=== PATIENT | male | born 1955 | race Caucasian/White ===

== ENCOUNTER 2022-06-27 13:46 | Emergency (ER) | payer MEDICARE, SELFPAY ==
--- NOTE | ~2022-06-27 | XR_ITS ---
EXAMINATION: XR chest 2V 06/27/2022 14:16 INDICATION: Worsening cough PROCEDURE: 2 view chest COMPARISON: No prior studies for comparison. FINDINGS: There is anterior basilar atelectasis. No focal pneumonia, edema, pleural effusion or pneum othorax. The cardiomediastinal silhouette is within normal limits. There are no pleural effusions. There is no pneumothorax suspected. IMPRESSION: 1: Anterior basilar atelectasis, best seen on lateral view. Reviewed, dictated and finalized at location A.
[2022-06-27 13:55] VITALS: BP 167/92; PULSE 93; RESP 20; TEMP 37.3; O2SAT 96
--- NOTE | 2022-06-27 14:37 | ED.URI ---
HPI - URI/Sore Throat General Chief Complaint: Upper Respiratory Infection Stated Complaint: Cough/Headache/Dizziness Source: patient, family, RN notes reviewed and old records reviewed Mode of arrival: ambulatory Limitations: no limitations History of Present Illness HPI Narrative: 66-year-old male who presents to express care accompanied by with complaints of cough, sinus congestion and drainage, sore throat since Saturday 5 days ago. Patient states he has coughed so much his stomach and ribs are sore and he is hoarse and he has a headache today.Patient reports that he has been taking Dayqil and Nyquil for his symptoms with no improvement. Patient reports that he did home COVID test Saturday and also yesterday with negative results. MD elicited complaint: cough, sore throat, rhinorrhea, nasal congestion and sinus pain Onset (ago): week(s) (5) Pain scale (0-10): 5 Description of mucous: clear Treatments prior to arrival: cold medicine Related Data Home Medications Medication Instructions Recorded Confirmed alprazolam 0.5 mg tablet 0.5 mg PO PRN PRN Anxiety 06/27/22 06/27/22 amlodipine 5 mg tablet 5 mg PO DAILY 06/27/22 06/27/22 aspirin 81 mg tablet 81 mg PO DAILY 06/27/22 06/27/22 atorvastatin 40 mg tablet 40 mg PO DAILY 06/27/22 06/27/22 celecoxib 200 mg capsule 200 mg PO DAILY 06/27/22 06/27/22 cyclobenzaprine 10 mg tablet 10 mg PO PRN PRN Muscle Spasm 06/27/22 06/27/22 duloxetine 60 mg capsule,delayed 60 mg PO DAILY 06/27/22 06/27/22 release esomeprazole magnesium 40 mg 40 mg PO DAILY 06/27/22 06/27/22 capsule,delayed release ezetimibe 10 mg tablet 10 mg PO DAILY 06/27/22 06/27/22 gabapentin 300 mg tablet 300 mg PO TID 06/27/22 06/27/22 levothyroxine 88 mcg tablet 88 mcg PO DAILY 06/27/22 06/27/22 losartan 50 mg-hydrochlorothiazide 1 tablet PO DAILY 06/27/22 06/27/22 12.5 mg tablet metoprolol tartrate 100 mg tablet 100 mg PO DAILY 06/27/22 06/27/22 tamsulosin 0.4 mg capsule 0.4 mg PO DAILY 06/27/22 06/27/22 Allergies Allergy/AdvReac Type Severity Reaction Status Date / Time No Known Allergies Allergy Verified 06/27/22 14:08 Review of Systems Review of Systems: CONSTITUTIONAL: Denies fever, chills, or sweats. EYES: Denies visual changes, redness, or discharge. ENT: Positive for rhinorrhea, congestion, sore throat, no ear pain, reports hoarse today RESPIRATORY: Positive for cough denies dyspnea.reports has coughed so hard his ribs and stomach are sore GASTROINTESTINAL: Denies abdominal pain, nausea, vomiting, or diarrhea. GENITOURINARY: Denies dysuria or hematuria. SKIN: Denies rash or itching. MUSCULOSKELETAL: Denies back pain, joint pain, or myalgia. NEUROLOGIC:Reports headache,no numbness, or weakness. PSYCHIATRIC: positive for anxiety or depression. All systems reviewed & are unremarkable except as noted in HPI and below PMFSH Past Medical History Medical History (Updated 07/01/22 @ 14:10 by Cleopatra Watson NP) Anxiety Arthritis BPH (benign prostatic hyperplasia) Elevated cholesterol GERD (gastroesophageal reflux disease) Hypertension Hypothyroid Social History Social History (Updated 07/01/22 @ 14:08 by Cleopatra Watson NP) Smoking status: Never smoker Alcohol intake: current Alcohol use details: rare Substance use type: does not use Gender identity (if verbalized by the patient): Male Comments a time of signature agree with nursing documentation of past medical,surgical, social, and family history.There is no relevant family history pertinent to presenting complaints. Exam Narrative: GENERAL: illl-appearing, well-nourished, and in no acute distress. HEAD: Normocephalic, atraumatic. EYES: PERRLA and EOMI. ENT: Nares red and swollen with clear rhinorrhea or epistaxis. Mucous membranes moist.TM' s normal with dull light reflex, throat red with no lesions or swelling post nasal discharge noted. NECK: Supple. no lymphadenopathy CHEST: Decreased breath sound bases to auscultation
== END 2022-06-27 14:53 | disposition home or self-care (01) ==
PROVIDERS: Emergency Provider Registered Nurse; PCP Internal Medicine
DX: J06.9 Acute upper respiratory infection, unspecified (principal); R05.9 Cough, unspecified; M19.90 Unspecified osteoarthritis, unspecified site; N40.0 Benign prostatic hyperplasia without lower urinary tract symptoms; E78.00 Pure hypercholesterolemia, unspecified; K21.9 Gastro-esophageal reflux disease without esophagitis; I10 Essential (primary) hypertension; E03.9 Hypothyroidism, unspecified; F41.9 Anxiety disorder, unspecified
CPT/HCPCS: 71046; 99213; G0463

== ENCOUNTER 2024-03-06 16:06 | Emergency (ER) | payer MEDICARE, SELFPAY ==
[2024-03-06 16:14] VITALS: BP 156/67; PULSE 63; RESP 16; TEMP 36.4; O2SAT 98
--- NOTE | 2024-03-06 16:33 | ED.SKABFB ---
HPI - Skin/Abscess/Foreign Bdy General Chief complaint: Skin/Abscess/Foreign Body Stated complaint: Rash Time Seen by Provider: 03/06/24 16:33 Source: patient Mode of arrival: ambulatory Limitations: no limitations History of Present Illness HPI narrative: 68-year-old male presents with complaint of itchy rash to groin for approximately 2 weeks. Has been applying prescription triamcinolone ointment without relief. Patient wears depends due to incontinence. Patient also reports strong odor to urine. No other urinary symptoms. All systems reviewed and negative except as noted above. Related Data Home Medications Medication Instructions Recorded Confirmed alprazolam 0.5 mg tablet 0.5 mg PO PRN PRN Anxiety 06/27/22 06/27/22 amlodipine 5 mg tablet 5 mg PO DAILY 06/27/22 06/27/22 aspirin 81 mg tablet 81 mg PO DAILY 06/27/22 06/27/22 atorvastatin 40 mg tablet 40 mg PO DAILY 06/27/22 06/27/22 celecoxib 200 mg capsule 200 mg PO DAILY 06/27/22 06/27/22 cyclobenzaprine 10 mg tablet 10 mg PO PRN PRN Muscle Spasm 06/27/22 06/27/22 duloxetine 60 mg capsule,delayed 60 mg PO DAILY 06/27/22 06/27/22 release esomeprazole magnesium 40 mg 40 mg PO DAILY 06/27/22 06/27/22 capsule,delayed release ezetimibe 10 mg tablet 10 mg PO DAILY 06/27/22 06/27/22 gabapentin 300 mg tablet 300 mg PO TID 06/27/22 06/27/22 levothyroxine 88 mcg tablet 88 mcg PO DAILY 06/27/22 06/27/22 losartan 50 mg-hydrochlorothiazide 1 tablet PO DAILY 06/27/22 06/27/22 12.5 mg tablet metoprolol tartrate 100 mg tablet 100 mg PO DAILY 06/27/22 06/27/22 tamsulosin 0.4 mg capsule 0.4 mg PO DAILY 06/27/22 06/27/22 Allergies Allergy/AdvReac Type Severity Reaction Status Date / Time No Known Allergies Allergy Verified 06/27/22 14:08 Review of Systems Review of Systems: CONSTITUTIONAL: Denies fever, chills, or sweats. EYES: Denies visual changes, redness, or discharge. ENT: Denies rhinorrhea, congestion, sore throat, or otalgia. CARDIOVASCULAR: Denies chest pain, palpitations, or edema. RESPIRATORY: Denies cough or dyspnea. GASTROINTESTINAL: Denies abdominal pain, nausea, vomiting, or diarrhea. GENITOURINARY: Denies dysuria or hematuria. SKIN: Reports itchy rash to right groin. MUSCULOSKELETAL: Denies back pain, joint pain, or myalgia. NEUROLOGIC: Denies headache, numbness, or weakness. PSYCHIATRIC: Denies anxiety or depression. All other systems reviewed are negative, except as documented in HPI. [facility] Past Medical History Medical History (Updated 03/06/24 @ 16:56 by Cierra Monteiro NP) Anxiety Arthritis BPH (benign prostatic hyperplasia) Elevated cholesterol GERD (gastroesophageal reflux disease) Hypertension Hypothyroid Social History Social History (Updated 07/01/22 @ 14:08 by Cleopatra Watson NP) Smoking status: Never smoker Alcohol intake: current Alcohol use details: rare Substance use type: does not use Gender identity (if verbalized by the patient): Male Comments At time of signature, agree with nursing past medical, surgical, social and family history. There is no relevant family history pertinent to the presenting complaint. Exam Narrative: GENERAL: This is a well-nourished, well-developed patient, in no apparent distress. HEAD: normocephalic, atraumatic. EYES: PERRL. Sclera clear/white. Vision is grossly intact. EARS: External ears normal NOSE: External nose normal NECK: Neck supple, non-tender without lymphadenopathy, masses or thyromegaly. CARDIOVASCULAR: Regular rate and rhythm without murmurs, gallops, or rubs. RESPIRATORY: Clear to auscultation. Breath sounds equal bilaterally. No wheezes, rales, or rhonchi. SKIN: warm, Dry, intact with no suspicious lesions , good texture and turgor. erythematous rash to R groin with satellite lesions NEURO: awake, alert, and oriented to person, place and time. There were no obvious focal neurologic abnormalities. EXTREMITIES: No joint tenderness, effusion, or edema no
== END 2024-03-06 17:03 | disposition home or self-care (01) ==
PROVIDERS: Emergency Provider Nurse Practitioner Family; PCP Internal Medicine
DX: B35.6 Tinea cruris (principal); M19.90 Unspecified osteoarthritis, unspecified site; N40.0 Benign prostatic hyperplasia without lower urinary tract symptoms; E78.00 Pure hypercholesterolemia, unspecified; K21.9 Gastro-esophageal reflux disease without esophagitis; I10 Essential (primary) hypertension; E03.9 Hypothyroidism, unspecified; F41.9 Anxiety disorder, unspecified
CPT/HCPCS: 81003; 87086; 87088; 99213; G0463

== ENCOUNTER 2024-07-29 13:51 | Emergency (ER) | payer MEDICARE, SELFPAY ==
[2024-07-29 14:00] VITALS: BP 181/99; PULSE 88; RESP 16; TEMP 36.4; O2SAT 100
--- NOTE | 2024-07-29 14:38 | ED.SKABFB ---
HPI - Skin/Abscess/Foreign Bdy General Chief complaint: Skin/Abscess/Foreign Body Stated complaint: Lower Extremity Rash Time Seen by Provider: 07/29/24 14:29 Source: patient, RN notes reviewed and old records reviewed Mode of arrival: ambulatory Limitations: no limitations History of Present Illness HPI narrative: Patient presents today complaining of a rash to his groin. He was seen in February for same symptoms, diagnosed with tinea cruris, and treated with some oral fluconazole, which he states was very helpful. Patient had a prostatectomy and since that time has to wear Depends due to incontinence. States he has tried some topical cream given to him by his urologist without relief. States he uses it maybe every other day. Related Data Home Medications Medication Instructions Recorded Confirmed amlodipine 5 mg tablet 5 mg PO DAILY 06/27/22 07/29/24 aspirin 81 mg tablet 81 mg PO DAILY 06/27/22 07/29/24 atorvastatin 40 mg tablet 40 mg PO DAILY 06/27/22 07/29/24 celecoxib 200 mg capsule 200 mg PO DAILY 06/27/22 07/29/24 duloxetine 60 mg capsule,delayed 60 mg PO DAILY 06/27/22 07/29/24 release esomeprazole magnesium 40 mg 40 mg PO DAILY 06/27/22 07/29/24 capsule,delayed release ezetimibe 10 mg tablet 10 mg PO DAILY 06/27/22 07/29/24 gabapentin 300 mg tablet 300 mg PO TID 06/27/22 07/29/24 levothyroxine 88 mcg tablet 88 mcg PO DAILY 06/27/22 07/29/24 losartan 50 mg-hydrochlorothiazide 1 tablet PO DAILY 06/27/22 07/29/24 12.5 mg tablet Allergies Allergy/AdvReac Type Severity Reaction Status Date / Time No Known Allergies Allergy Verified 06/27/22 14:08 Review of Systems Review of Systems: CONSTITUTIONAL: Denies body aches, fever, chills, or sweats. EYES: Denies visual changes, redness, or discharge. ENT: Denies rhinorrhea, congestion, sore throat, or otalgia. CARDIOVASCULAR: Denies chest pain, palpitations, or edema. RESPIRATORY: Denies cough or dyspnea. GASTROINTESTINAL: Denies abdominal pain, nausea, vomiting, or diarrhea. GENITOURINARY: Denies dysuria or hematuria. SKIN: + groin rash MUSCULOSKELETAL: Denies back pain, joint pain, or myalgia. NEUROLOGIC: Denies headache, numbness, tingling, or weakness. PSYCH: Denies depression or anxiety. [facility] Past Medical History Medical History (Updated 07/29/24 @ 14:44 by Carla Haywood, [employer]ORE SALES [employer]SULTANT, ) Anxiety Arthritis BPH (benign prostatic hyperplasia) Elevated cholesterol GERD (gastroesophageal reflux disease) Hypertension Hypothyroid Surgical History Surgical History (Updated 07/29/24 @ 14:41 by Carla Haywood, [facility], ) H/O prostatectomy Social History Social History Smoking status: Never smoker Alcohol intake: current Alcohol use details: rare Substance use type: does not use Gender identity (if verbalized by the patient): Male Exam Narrative: GENERAL: Well-appearing, well-nourished, and in no acute distress. HEAD: Normocephalic, atraumatic. EYES: EOMI. No redness or drainage. Conjunctivae normal. ENT: Mucous membranes pink and moist. NECK: Normal AROM. CHEST: No respiratory distress. EXTREMITIES: Normal range of motion. No edema. SKIN: Warm, dry. Capillary refill normal. Normal skin turgor. Large area to the right groin that is erythematous with some central clearing in flaking at the edges. NEURO: No focal deficits. Alert and oriented x3. Gait steady. PSYCH: Normal affect. No signs of depression or anxiety. Course Course Level of Care: Express Care Visit Vital Signs Vital signs: Vital Signs Temperature 97.6 F 07/29/24 14:00 Pulse Rate 88 07/29/24 14:00 Respiratory Rate 16 07/29/24 14:00 Blood Pressure 181/99 H 07/29/24 14:00 Pulse Oximetry 100 07/29/24 14:00 Oxygen Delivery Room Air 07/29/24 14:00 Temperature 97.6 F 07/29/24 14:00 Pulse Rate 88 07/29/24 14:00 Respiratory Rate 16 07/29/24 14:00 Blood Pressure
== END 2024-07-29 14:50 | disposition home or self-care (01) ==
PROVIDERS: Emergency Provider Nurse Practitioner; PCP Internal Medicine
DX: B35.6 Tinea cruris (principal); N40.0 Benign prostatic hyperplasia without lower urinary tract symptoms; E78.00 Pure hypercholesterolemia, unspecified; I10 Essential (primary) hypertension; E03.9 Hypothyroidism, unspecified; M19.90 Unspecified osteoarthritis, unspecified site; F41.9 Anxiety disorder, unspecified; Z79.82 Long term (current) use of aspirin
CPT/HCPCS: 99213; G0463

== ENCOUNTER 2024-10-30 16:43 | Emergency (ER) | payer MEDICARE, SELFPAY ==
--- OUTSIDE RECORDS SUMMARY | 2024-10-30 16:46 | XMS_ITS | Encounter Summary ---
Author Organization [facility] Address [address] [place] [address] Care Team Providers Care Turbine Engineer Name Role Phone Mohinder Hadley MD Primary Care Provider [phone] Encounter Details Date Type Department Care Team (Late Contact Info) Description 06/26/2005 Outpatient [facility] [address] 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 Gender Identity Not on file Sexual Orientation Not on file documented as of this encounter Plan of Treatment Upcoming Encounters Date Type Department Care Team (Late Contact Info) Description 11/09/2024 1:20 PM REAL ESTATE ADMINISTRATIVE ASSISTANT [facility] Care [address] [place] [phone] Mohinder Hadley MD [address] [place] [address] [address] [place] [address] 11/10/2024 11:00 AM REAL ESTATE ADMINISTRATIVE ASSISTANT Office Visit [facility] at the [facility] Medicine [address] [facility] [facility] [address] [place] [phone] Chirag Damon MD [address] [employer] [address] [place], [place] [id number] 01/04/2025 12:00 PM CDT Office Visit [facility] Urology at the [facility] [address] [place] [address] Tonia Melton PA [address] [facility] [address] [place] [address] documented as of this encounter Visit Diagnoses Not on filedocumented in this encounter Care Teams Turbine Engineer Relationship Specialty Start Date End Date Mohinder Hadley MD [address] [place] [address] [address] [place] [phone] PCP - General 06/03/07 documented as of this encounter
--- OUTSIDE RECORDS SUMMARY | 2024-10-30 16:46 | XMS_ITS | Encounter Summary ---
Author Organization [facility] Address [address] [place] [address] Care Team Providers Care Senior Asset Manager Name Role Phone Mohinder Hadley MD Primary Care Provider [phone] Encounter Details Date Type Department Care Team ([facility] Contact Info) Description 05/28/2005 Outpatient Historical [facility] Internal Medicine [address] [place] [address] [address] Mohinder Hadley MD [address] [place] [address] Social History Tobacco Use Types Packs/Day Years Used Date Smoking Tobacco: Never Assessed Sex and Gender Information Value Date Recorded Sex Assigned at Not on file Legal Sex Male 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 CONTROLLER CENTER Gender Identity Not on file Sexual Orientation Not on file documented as of this encounter Last Filed Vital Signs Vital Sign Reading Time Taken Comments Blood Pressure 152/90 05/28/2005 1:30 PM CDT Pulse - - Temperature - - Respiratory Rate - - Oxygen Saturation - - Inhaled Oxygen Concentration - - Weight 89.8 kg (198 lb) 05/28/2005 1:30 PM CDT Height - - Body Mass Index - - documented in this encounter Plan of Treatment Upcoming Encounters Date Type Department Care Team ([facility] Contact Info) Description 11/09/2024 1:20 PM CHIEF CONTROLLER CENTER Office Visit [facility] Primary Care [address] [place] [address] Mohinder Hadley MD [address] [place] [address] [address] [place] [address] 11/10/2024 11:00 AM CHIEF CONTROLLER CENTER Office Visit [facility] Urology at the [facility] Medicine [address] [place] [phone] Chirag [place]on MD [address] [facility] [address] [place], [place] [phone] 01/04/2025 12:00 PM CDT Office Visit [facility] Urology at the [facility] [address] [place] [address] Tonia Melton PA [address] [facility] [address] [place], [place] [phone] documented as of this encounter Visit Diagnoses Not on filedocumented in this encounter Care Teams Senior Asset Manager Relationship Specialty Start Date End Date Mohinder Hadley MD [address] [place] [address] PCP - General 06/03/07 documented as of this encounter
--- OUTSIDE RECORDS SUMMARY | 2024-10-30 16:46 | XMS_ITS | Encounter Summary ---
Author Organization [facility] Address [address] [place] [address] Care Team Providers Care Utilization Coordinator Name Role Phone Mohinder Hadley MD Primary Care Provider [phone] Encounter Details Date Type Department Care Team ([facility] Contact Info) Description 11/21/2004 Outpatient Historical [facility] Internal Medicine [address] [address] Mohinder Hadley MD [address] [place] [address] [address] [place] [address] Social History Tobacco Use Types Packs/Day Years Used Date Smoking Tobacco: Never Assessed Sex and Gender Information Value Date Recorded Sex Assigned at Not on file Legal Sex Male 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 COATING FINISHER Gender Identity Not on file Sexual Orientation Not on file documented as of this encounter Last Filed Vital Signs Vital Sign Reading Time Taken Comments Blood Pressure 170/110 11/21/2004 1:30 PM ARCHITECTURAL COATING FINISHER Pulse - - Temperature - - Respiratory Rate - - Oxygen Saturation - - Inhaled Oxygen Concentration - - Weight 90.7 kg (200 lb) 11/21/2004 1:30 PM ARCHITECTURAL COATING FINISHER Height - - Body Mass Index - - documented in this encounter Plan of Treatment Upcoming Encounters Date Type Department Care Team ([facility] Contact Info) Description 11/09/2024 1:20 PM ARCHITECTURAL COATING FINISHER Office Visit [facility] Primary Care [address] [place] [address] Mohinder Hadley MD [address] [place] [address] [address] [place] [address] 11/10/2024 11:00 AM ARCHITECTURAL COATING FINISHER Office Visit [facility] Urology at the [facility] Medicine [address] [place] [phone] Chirag [place]on MD [address] [facility] [address] [place], [place] [phone] 01/04/2025 12:00 PM CDT Office Visit [facility] Urology at the [facility] [address] [place] [phone] Tonia Melton PA [address] [id number] documented as of this encounter Visit Diagnoses Not on filedocumented in this encounter Care Teams Utilization Coordinator Relationship Specialty Start Date End Date Mohinder Hadley MD [address] [place] [address] PCP - General 06/03/07 documented as of this encounter
--- OUTSIDE RECORDS SUMMARY | 2024-10-30 16:46 | XMS_ITS | Encounter Summary ---
Author Organization [facility] Address [address] [place] [address] Care Team Providers Care Landscape Manager Name Role Phone Mohinder Hadley MD Primary Care Provider [phone] Encounter Details Date Type Department Care Team (Late Contact Info) Description 05/07/2005 Outpatient [facility] [address] [place] [address] Kanwal Fish MD [address] [place] [phone] Social History Tobacco Use Types Packs/Day Years Used Date Smoking Tobacco: Never Assessed Sex and Gender Information Value Date Recorded Sex Assigned at Not on file Legal Sex Male 5:02 AM INSTRUCTOR WARPER Gender Identity Not on file Sexual Orientation Not on file documented as of this encounter Plan of Treatment Upcoming Encounters Date Type Department Care Team (Late Contact Info) Description 11/09/2024 1:20 PM INSTRUCTOR WARPER Office Visit [facility] Primary Care [address] [place] [phone] Mohinder Hadley MD [address] [place] [address] [address] [place] [address] 11/10/2024 11:00 AM INSTRUCTOR WARPER Office Visit [facility] Urology at the [facility] Medicine [address] [facility] [address] [place] [phone] Chirag [place] MD [address] [employer] [address] [place], [place] [phone] 01/04/2025 12:00 PM CDT Office Visit [facility] Urology at the [facility] [address] [place] [address] Tonia Melton PA [address] [facility] [address] [place] [address] documented as of this encounter Visit Diagnoses Not on filedocumented in this encounter Care Teams Landscape Manager Relationship Specialty Start Date End Date Mohinder Hadley MD [address] [place] [address] [address] [place] [phone] PCP - General 06/03/07 documented as of this encounter
--- OUTSIDE RECORDS SUMMARY | 2024-10-30 16:46 | XMS_ITS | Encounter Summary ---
Author Organization [facility] Address [address] [place] [address] Care Team Providers Care Sanitation Worker Cleaning Equipment Name Role Phone Mohinder Hadley MD Primary Care Provider [phone] Encounter Details Date Type Department Care Team (Late Contact Info) Description 02/26/2005 Outpatient [facility] [address] [place] [address] Kanwal Fish MD [address] [place] [phone] Social History Tobacco Use Types Packs/Day Years Used Date Smoking Tobacco: Never Assessed Sex and Gender Information Value Date Recorded Sex Assigned at Not on file Legal Sex Male 5:02 AM DIVISION TOLL WIRE CHIEF Gender Identity Not on file Sexual Orientation Not on file documented as of this encounter Plan of Treatment Upcoming Encounters Date Type Department Care Team (Late Contact Info) Description 11/09/2024 1:20 PM DIVISION TOLL WIRE CHIEF Office Visit [facility] Primary Care [address] [place] [phone] Mohinder Hadley MD [address] [place] [address] [address] [place] [address] 11/10/2024 11:00 AM DIVISION TOLL WIRE CHIEF Office Visit [facility] Urology at the [facility] Medicine [address] [facility] [address] [place] [phone] Chirag [place] MD [address] [employer] [address] [place], [place] [phone] 01/04/2025 12:00 PM CDT Office Visit [facility] Urology at the [facility] [address] [place] [address] Tonia Melton PA [address] [facility] [address] [place] [address] documented as of this encounter Visit Diagnoses Not on filedocumented in this encounter Care Teams Sanitation Worker Cleaning Equipment Relationship Specialty Start Date End Date Mohinder Hadley MD [address] [place] [address] [address] [place] [phone] PCP - General 06/03/07 documented as of this encounter
--- OUTSIDE RECORDS SUMMARY | 2024-10-30 16:47 | XMS_ITS | Encounter Summary ---
Author Organization [facility] Address [address] [place] [address] Care Team Providers Care Worksite Wellness Practitioner Name Role Phone Mohinder Hadley MD Primary Care Provider [phone] Encounter Details Date Type Department Care Team (Late st Contact Info) Description 10/13/[address] [facility] Internal Medicine [address] [address] Mohinder Hadley MD [address] [place] [address] Social History Tobacco Use Types Packs/Day Years Used Date Smoking Tobacco: Never Assessed Sex and Gender Information Value Date Recorded Sex Assigned at Not on file Legal Sex Male 5:02 AM FOUNDRY METALLURGIST Gender Identity Not on file Sexual Orientation Not on file documented as of this encounter Progress Notes * Mohinder Hadley MD - 02/18/2008 5:27 PM CDT TIME:10:23 am PATIENT`S HOME PHONE: PATIENT`S WORK PHONE: PATIENT`S INSURANCE: [facility] WHO TOOK THE CALL: Alicia Buck B GENERAL INFORMATION ALTERNATIVE PHONE NUMBER: [phone] WHO CALLED: Patient called. Patient reports no known allergies. PHARMACY NUMBER: [phone] PROBLEMS: pt experiencing hot/ cold flashes. feels he may have a sinus infection CONGESTION: Patient complains of sinus congestion, complains of nasal congestion. The symptoms began approximately 1 day ago. NAUSEA: Patient complains of nausea. The symptoms began approximately 1 day ago. SECTION 1: REQUESTED ACTION hakeem 10/13/07 at 10:25 am: MEDICATION REQUEST: Patient wants medication or an appointment. can come in for appt if necessary DOCTOR`S RESPONSE: chelseybibi 10/13/07 at 10:36 am MEDICATIONS: Call in to Pharmacy LEVAQUIN ORAL TABLET 500 MG, 1 Every Day, 10 Dispensed, status: CONTINUED, 10/13/2007. see if not improving--if pt feeling very sick put in sched for today FINAL ACTION: sabikb 10/13/07 at 11:51 am did not call in meds because pt will be coming in this afternoon. Spoke with patient 10/13/07 at 11:51 am. today 1:45pm * Mohinder Hadley MD - 02/18/2008 5:22 PM CDT WEIGHT: 190lbs BLOOD PRESSURE: 140/100 Right Arm Sitting TEMPERATURE: 36.72??c Oral NURSE NAME: Yazmin Sapp R TOBACCO USE Patient does not currently use tobacco. CHIEF COMPLAINT Patient complains of sinus congestion, cough, dizziness. HISTORY: HISTORY: 272.4-HYPERLIPIDEMIA The patient is tolerating the medications. 311-DEPRESSION No complications noted from the medication presently being used. 401.9-HYPERTENSION, UNSPECIFIED The patient is tolerating the medication. 461.9-SINUSITIS UNSPECIFIED with bronchitis, sx wheeze, sinus drainage, x 2 weeks 715.90-OSTEOARTHROSIS UNSPECIFIED The arthritis has worsened.severe daily chronic pain , back and legs ROS: ENDOCRINE: No heat or cold intolerance, no excessive thirst. CARDIAC: No chest pain, palpitations, orthopnea, dyspnea on exertion, or paroxysmal nocturnal dyspnea. RESPIRATORY: No dyspnea, cough, hemoptysis or wheezing. : No dysuria or hematuria. GI: No abdominal pain, nausea, vomiting, diarrhea, constipation, melena, or hematochezia. PAST MEDICAL HISTORY: reviewed SOCIAL HISTORY: TOBACCO USE: Has no significant smoking history. OCCUPATION: . working [employer] ALCOHOL: Does not give any significant history of alcohol usage. PHYSICAL EXAMINATION: CONSTITUTIONAL: GENERAL APPEARANCE: Healthy appearing patient in no distress. EARS, NOSE, MOUTH AND THROAT: EARS: EFFUSION PRESENT BILATERALLY, TYMPANIC MEMBRANES INFLAMED BILATERALLY. ORAL: OROPHARYNX ERYTHEMATOUS. NECK/THYROID: Trachea midline. No thyroid enlargement, tenderness, or mass. No supraclavicular or cervical adenopathy. RESPIRATORY: Clear to auscultation and percussion. Normal respiratory effort. CARDIOVASCULAR: CARDIAC: Regular rhythm. No murmurs, rubs, or gallops. ARTERIAL: No aortic bruits. EDEMA/VARICOSITIES OF EXTREMITIES: No edema or varicosities. GASTROINTESTINAL: ABDOMEN: Soft, non-tender, without masses. Bowel sounds active. LIVER/SPLEEN/KIDNEY: No hepatosplenomegaly, tenderness or nodularity. Kidneys not palpable. MUSCULOSKELETAL EXAM: ls tender ASSESSMENT/PLAN: 272.4-HYPERLIPIDEMIA cont med, recheck lab 311-DEPRESSION cont med, discussed 401.9-HYPERTENSION, UNSPECIFIED cont med 461.9-SINUSITIS UNSPECIFIED rx MEDICATIONS: MEDROL (KERLINE) ORAL TABLET 4 MG, DIRECTED, 1 Dispensed, status: CONTINUED, 10/13/2007. LEVAQUIN ORAL TABLET 500 MG, 1 Every Day, 14 Dispensed, status: CONTINUED, 10/13/2007. ASTELIN NASAL SOLUTION 137 MCG/SPRAY, 2 Two Times A Day, 4 Fills, 30 Duration/Days Supply, status: NEW PRESCRIPTION, 10/13/2007. ADDISON ORAL TABLET 180 MG, 1 Every Day, 30 Dispensed, 3 Fills, status: NEW PRESCRIPTION, 10/13/2007. 715.90-OSTEOARTHROSIS UNSPECIFIED add med again, offered ns referral pt declines, cont other med MEDICATIONS: CELEBREX ORAL CAPSULE CONVENTIONAL 200 MG, 1 Every Day, 30 Dispensed, 3 Fills, status: NEW PRESCRIPTION, 10/13/2007. GABAPENTIN ORAL TABLET 300 MG, 1 Two Times A Day, 60 Dispensed, 4 Fills, status: CONTINUED, 08/21/2007. SPECIALTY REFERRAL: GASTROENTEROLOGY Dr. Jovany Miranda ph: [phone] fax: [phone].colonoscopy Patient Education: Risks, benefits, and possible side effects of medication(s) were reviewed with the patient. The patient was allowed to ask questions to stated satisfaction. RETURN VISIT : Patient instructed to return in 3 months.resched [address] apt Electronically Signed by: Mohinder Hadley MD on Saturday, October 13, 2007 * Mohinder Hadley MD - 02/18/2008 5:19 PM CDT TIME:03:36 pm PATIENT`S HOME PHONE: PATIENT`S WORK PHONE: PATIENT`S INSURANCE: [facility] WHO TOOK THE CALL: Nanci Barnett C GENERAL INFORMATION WHO CALLED: Pharmacy called. [phone] SECTION 1: REQUESTED ACTION trey 10/13/07 at 03:36 pm: MEDICATION REQUEST: Pt is taking cymbalta you had given a script of Levaquin for 14 days they say it may increase the cymbalta Pt states he is not taking it everyday. Is it okay to fill? Patient requests a change in current medication. DOCTOR`S RESPONSE: adrianna 10/13/07 at 03:42 pm ok fill FINAL ACTION: trey 10/13/07 at 03:52 pm Called pharmacy at 10/13/07 at 03:52 pm. Electronically Signed by: Nanci Barnett on Saturday, October 13, 2007 documented in this encounter Plan of Treatment Upcoming Encounters Date Type Department Care Team (Late st Contact Info) Description 11/09/2024 1:20 PM FOUNDRY METALLURGIST Office Visit [facility] Primary Care [address] Mohinder Hadley MD [address] [place] [address] 11/10/2024 11:00 AM FOUNDRY METALLURGIST Office Visit [facility] Urology at the [facility] Medicine [address] [place] [phone] Chirag Damon MD [address] [phone] 01/04/2025 12:00 PM CDT Office Visit [facility] Urology at the [facility] Medicine [address] [place] [phone] Tonia Melton PA [address] [address] documented as of this encounter Visit Diagnoses Not on filedocumented in this encounter Care Teams Worksite Wellness Practitioner Relationship Specialty Start Date End Date Mohinder Hadley MD [address] [place] [phone] PCP - General 06/03/07 documented as of this encounter
--- OUTSIDE RECORDS SUMMARY | 2024-10-30 16:47 | XMS_ITS | Encounter Summary ---
Author Organization [facility] Address [address] [place] [address] Care Team Providers Care Network Contractor Name Role Phone Mohinder Hadley MD Primary Care Provider [phone] Encounter Details Date Type Department Care Team (Late Contact Info) Description 04/22/2006 Outpatient Historical [facility] Internal Medicine [address] [address] Mohinder Hadley MD [address] [place] [address] [address] [phone] Social History Tobacco Use Types Packs/Day Years Used Date Smoking Tobacco: Never Assessed Sex and Gender Information Value Date Recorded Sex Assigned at Not on file Legal Sex Male 5:02 AM OFFICE SPEC Gender Identity Not on file Sexual Orientation Not on file documented as of this encounter Plan of Treatment Upcoming Encounters Date Type Department Care Team (Late Contact Info) Description 11/09/2024 1:20 PM OFFICE SPEC Office Visit [facility] Primary Care [facility] [address] [place] [address] [address] [place] [phone] Mohinder Hadley MD [address] [place] [address] [address] [place] [phone] 11/10/2024 11:00 AM OFFICE SPEC Office Visit [facility] Urology at the [facility] [address] [place] [address] Chirag Damon MD [address] [facility] [address] [place] [address] 01/04/2025 12:00 PM CDT Office Visit [facility] Urology at the [facility] Medicine [address] [place] [address] Tonia Melton PA [address] [facility] [address] [place] [address] documented as of this encounter Visit Diagnoses Not on filedocumented in this encounter Care Teams Network Contractor Relationship Specialty Start Date End Date Mohinder Hadley MD [address] [place] [phone] PCP - General 06/03/07 documented as of this encounter
--- OUTSIDE RECORDS SUMMARY | 2024-10-30 16:47 | XMS_ITS | Encounter Summary ---
Author Organization [facility] Address [address] [place] [address] Care Team Providers Care Marine Railway Operator Name Role Phone Mohinder Hadley MD Primary Care Provider [phone] Encounter Details Date Type Department Care Team ([facility] Contact Info) Description 06/27/2004 Outpatient Historical [facility] Internal Medicine [address] [address] Mohinder Hadley MD [address] [place] [address] Social History Tobacco Use Types Packs/Day Years Used Date Smoking Tobacco: Never Assessed Sex and Gender Information Value Date Recorded Sex Assigned at Not on file Legal Sex Male 5:02 AM PUBLIC HEALTH SANITARIAN Gender Identity Not on file Sexual Orientation Not on file documented as of this encounter Last Filed Vital Signs Vital Sign Reading Time Taken Comments Blood Pressure 160/90 06/27/2004 11:15 AM CDT Pulse - - Temperature - - Respiratory Rate - - Oxygen Saturation - - Inhaled Oxygen Concentration - - Weight 91.6 kg (202 lb) 06/27/2004 11:15 AM CDT Height - - Body Mass Index - - documented in this encounter Plan of Treatment Upcoming Encounters Date Type Department Care Team ([facility] Contact Info) Description 11/09/2024 1:20 PM PUBLIC HEALTH SANITARIAN Office Visit [facility] Primary Care [address] [place] [address] Mohinder Hadley MD [address] [place] [address] [address] [place] [address] 11/10/2024 11:00 AM PUBLIC HEALTH SANITARIAN Office Visit [facility] Urology at the [facility] Medicine [address] [place] [phone] Chirag Damon MD [address] [facility] [address] [place], [place] [phone] 01/04/2025 12:00 PM CDT Office Visit [facility] Urology at the [facility] [address] [place] [address] Tonia Melton PA [address] [facility] [address] [place], [place] [phone] documented as of this encounter Visit Diagnoses Not on filedocumented in this encounter Care Teams Marine Railway Operator Relationship Specialty Start Date End Date Mohinder Hadley MD [address] [place] [phone] PCP - General 06/03/07 documented as of this encounter
--- OUTSIDE RECORDS SUMMARY | 2024-10-30 16:47 | XMS_ITS | Encounter Summary ---
Author Organization [facility] Address [address] [place] [address] Care Team Providers Care Dope House Operator Helper Name Role Phone Charlotte Felipe MD Primary Care Provider [phone] Encounter Details Date Type Department Care Team (Late st Contact Info) Description 01/01/2007 Orders Only [facility] Internal Medicine [address] [address] Charlotte Felipe MD [address] [place] [phone] Social History Tobacco Use Types Packs/Day Years Used Date Smoking Tobacco: Never Assessed Sex and Gender Information Value Date Recorded Sex Assigned at Not on file Legal Sex Male 5:02 AM DOUBLE END SEWER Gender Identity Not on file Sexual Orientation Not on file documented as of this encounter Progress Notes * Charlotte Felipe MD - 02/27/2008 1:33 PM CDT TIME:02:42 pm PATIENT`S HOME PHONE: PATIENT`S WORK PHONE: PATIENT`S INSURANCE: [facility] WHO TOOK THE CALL: Cherise Gao C PROBLEMS: Would you please tell me why patient needs pain management referral? Thank You SECTION 1: back pain radiculopathy DOCTOR`S RESPONSE: adrianna 01/01/07 at 03:06 pm FINAL ACTION: mary 01/01/07 at 05:19 pm COMPLETED SENT TO [facility]. Electronically Signed by: Cherise Gao on Monday, January 01, 2007 * Charlotte Felipe MD - 02/27/2008 1:33 PM CDT WEIGHT: 195lbs BLOOD PRESSURE: 140/70 Right Arm Sitting TEMPERATURE: 36.39??c Oral NURSE NAME: Yazmin Sapp R CHIEF COMPLAINT Patient here for follow up hyperlipidemia, hypertension. c/o numbness in feet. HISTORY: numb in toe known radiculopathy HISTORY: 272.4-HYPERLIPIDEMIA The patient is tolerating the medications. The patient's most recent LDL was not at goal. 311-DEPRESSION The depression is unchanged. 401.9-HYPERTENSION, UNSPECIFIED The patient denies chest pain, shortness of breath, dyspnea on exertion, pedal edema, or headache. 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 CARDIAC: No chest pain, palpitations, orthopnea, dyspnea on exertion, or paroxysmal nocturnal dyspnea. : See HISTORY OF PRESENT ILLNESS. GI: No abdominal pain, nausea, vomiting, diarrhea, constipation, melena, or hematochezia. PAST MEDICAL HISTORY: reviewed SOCIAL HISTORY: TOBACCO USE: Has no significant smoking history. OCCUPATION: . working [employer] ALCOHOL: Does not give any significant history of alcohol usage. PHYSICAL EXAMINATION: CONSTITUTIONAL: GENERAL APPEARANCE: Healthy appearing patient in no distress. EARS, NOSE, MOUTH AND THROAT: EARS: Tympanic membranes shiny without retraction. Canals unremarkable. Hearing grossly normal. ORAL: Inspection of gums, lips, palate, and teeth normal. No scars, lesions, or masses. Oral mucosaunremarkable with non-inflamed posterior pharynx. NECK/THYROID: Trachea midline. No thyroid enlargement, tenderness, or mass. No supraclavicular or cervical adenopathy. RESPIRATORY: Clear to auscultation and percussion. Normal respiratory effort. CARDIOVASCULAR: CARDIAC: Regular rhythm. No murmurs, rubs, or gallops. ARTERIAL: No aortic bruits. EDEMA/VARICOSITIES OF EXTREMITIES: No edema or varicosities. GASTROINTESTINAL: ABDOMEN: Soft, non-tender, without masses. Bowel sounds active. LIVER/SPLEEN/KIDNEY: No hepatosplenomegaly, tenderness or nodularity. Kidneys not palpable. RECTAL: Rectal exam reveals no masses or hemorrhoids, sphincter tone is normal. STOOL/HEMOCCULT: Stool is normal. Stool is hemoccult negative. GENITOURINARY: PROSTATE: 1+ ENLARGED, smooth. NEUROLOGIC: numb left big toe DEEP TENDON REFLEXES: Deep tendon reflexes 2+/4 and symmetrical. 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 LAB ORDERS: now Order number: [id number] Test Ordered: URINALYSIS WITH REFLEX CULTURE 2221 Order number: [id number] Test Ordered: PSA, TOTAL 1002 Order number: [id number] Test Ordered: HEMOCCULT SINGLE [id number] neg-done in office 715.90-OSTEOARTHROSIS UNSPECIFIED reviewed old studies with pt, refer pain mgt MEDICATIONS: DARVOCET-N 100 ORAL TABLET 100-650 MG, 1 Every Six Hours, As Needed, 90 Dispensed, 1 Fills, status:CONTINUED, 01/01/2007. SPECIALTY REFERRAL: PAIN MANAGEMENT Dr. Jake Christianson ph: [phone]. RETURN VISIT : Patient instructed to return in 3 months. Electronically Signed by: Charlotte Felipe MD on Monday, January 01, 2007 * Charlotte Felipe MD - 02/27/2008 1:27 PM CDT SPECIALIST REFERRAL REQUEST DATE: JAN 01, 2007 Note created by: Cherise Gao C 04:53 p Patient Name : LB MCCORMICK Address: [address] [place] [address] D.O.B: 1955 SSN: [id number] Parent/Guardian if applicable: Patient Insurance: [facility] Policy#: [id number] Group #: Best To Call : HOME. Best Time to Call : ANYTIME. May We Leave Message At That Number : YES, LEAVE MESSAGE. Referring to: PAIN MANAGEMENT Dr. Jake Christianson PH: Reason for referral: Back pain radiculopathy PATIENT DIAGNOSIS: . ORDERING PHYSICIAN : CHARLOTTE FELIPE MD PRIORITY OF REFERRAL: AT PATIENT'S CONVENIENCE. OFFICE UTILITY SALES REPRESENTATIVE & PHONE: Cherise Gao C FOR SCHEDULING USE ONLY: FIRST ATTEMPT Date:JAN 02, 2007 Torie Ho L 08:29 a First Attempt :. Spoke with Patient.and called Dr Christianson's office Hyun said that they could not schedule the appt until the had a copy of the referral and had a phone interview with the pt. She said that then they would schedule the pt appt. I faxed over the referral and informed the pt that hyun would be calling. I asked that We be called back and informed of his appt date and time SECOND ATTEMPT: Date:JAN 27, 2007 Madonna Crum J 10:08 a called [facility] center and got appt date APPOINTMENT DATE : 01/28/2007 Referral number: none needed documented in this encounter Plan of Treatment Upcoming Encounters Date Type Department Care Team (Late st Contact Info) Description 11/09/2024 1:20 PM DOUBLE END SEWER Office Visit [facility] Primary Care [id number] [place] [address] Charlotte Felipe MD [address] [place] [phone] 11/10/2024 11:00 AM DOUBLE END SEWER Office Visit [facility] Urology at the [facility] Medicine [address] [place] [phone] Chirag Damon MD [address] [phone] 01/04/2025 12:00 PM CDT Office Visit [facility] Urology at the [facility] Medicine [address] [place] [phone] Tonia Melton PA [address] [phone] documented as of this encounter Visit Diagnoses Not on filedocumented in this encounter Care Teams Dope House Operator Helper Relationship Specialty Start Date End Date Charlotte Felipe MD [address] [place] [phone] PCP - General 06/03/07 documented as of this encounter
--- OUTSIDE RECORDS SUMMARY | 2024-10-30 16:47 | XMS_ITS | Encounter Summary ---
Author Organization [facility] Address [address] [place] [address] Care Team Providers Care Manager In Training Name Role Phone Unavailable Primary Care Provider Unavailabl e Encounter Details Date Type Department Care Team (Late st Contact Info) Description 04/17/2020 Lab Requisition [facility] [address] [place] [address] Graciela Valdez MD [address] [place] [address] Social History Tobacco Use Types Packs/Day Years Used Date Smoking Tobacco: Never Assessed Sex and Gender Information Value Date Recorded Sex Assigned at Not on file Gender Identity Not on file Sexual Orientation Not on file documented as of this encounter Plan of Treatment Not on file documented as of this encounter Procedures Procedure Name Priority Date/Time Associated Diagnosis Comments SARS-COV-2 (COVID-19) IN HOUSE Routine 04/16/2020 2:00 PM CDT documented in this encounter Results * SARS-COV-2 (COVID-19) IN HOUSE (04/16/2020 2:00 PM CDT) COVID-19 PCR Not detected Not detected, Invalid 04/17/2020 8:57 PM CDT [facility] MICROBIOLOGY Microbiology SPECIMEN FROM NASOPHARYNGEAL STRUCTURE / Unknown Collection / Unknown 04/16/2020 2:00 PM CDT 04/17/2020 4:32 PM CDT Narrative [facility]CRO[facility]OLOG[facility] - 04/17/2020 8:57 PM CDT This nucleic acid amplification assay performance was validated by [facility] Microbiology Laboratory. This test has been authorized by the Food and Drug administration (FDA)under an Emergency??Use Authorization (EUA). This test has been validated in accordance with the FDA's guidance document Policy for Diagnostic Testing in Laboratories Certified to perform High Complexity Testing under CLIA prior to Emergency Use Authorization for Coronavirus Disease-2019 during the Public Health Emergency issued on December 05, 2019. FDA independent review of this validation is pending. This test is only authorized for the duration of time the declaration that circumstances exist justifying the authorization of emergency use of in vitro diagnostic tests for detection of SARS-CoV-2 virus and/or diagnosis of COVID-19 infection under section 564(b)(1) of the Act, 21 U.S.C 360bbb-3 (b)(1), unless the authorization is terminated or revoked sooner. Graciela Valdez MD LAB - MICROBIOLOGY ORDERABLES [facility] MICROBIOLOGY [address] [place] [address], [facility] [phone] documented in this encounter Visit Diagnoses Not on filedocumented in this encounter Additional Health Concerns Infection Onset Date Last Indicated Resolved Time COVID-19 Under Investigation 04/16/2020 04/16/2020 04/17/2020 8:57 PM CDT documented as of this encounter
--- OUTSIDE RECORDS SUMMARY | 2024-10-30 16:47 | XMS_ITS | Encounter Summary ---
Author Organization [facility] Address [address] [place] [address] Care Team Providers Care Supervisor Receiving And Processing Name Role Phone Mohinder Hadley MD Primary Care Provider [phone] Encounter Details Date Type Department Care Team (Late st Contact Info) Description 11/06/2007 Orders Only [facility] Internal Medicine [address] [address] Mohinder Hadley MD [address] [place] [address] Social History Tobacco Use Types Packs/Day Years Used Date Smoking Tobacco: Never Assessed Sex and Gender Information Value Date Recorded Sex Assigned at Not on file Legal Sex Male 5:02 AM INDUSTRIAL TRAINER Gender Identity Not on file Sexual Orientation Not on file documented as of this encounter Progress Notes * Mohinder Hadley MD - 02/18/2008 9:32 PM CDT TIME:12:26 pm PATIENT`S HOME PHONE: PATIENT`S WORK PHONE: PATIENT`S INSURANCE: [facility] WHO TOOK THE CALL: Toya Teran L GENERAL INFORMATION WHO CALLED: Pharmacy called. PHARMACY NUMBER: [phone] SECTION 1: REQUESTED ACTION licasl 11/06/07 at 12:27 pm: MEDICATION REQUEST: MEDICATION REQUEST: Patient requests a refill. Darvocet N-100 #90 Lf 08/20/07 & gen Flexeril 10mg. #30 LF 08/20/07 DOCTOR`S RESPONSE: adrianna 11/06/07 at 01:04 pm MEDICATIONS: FLEXERIL ORAL TABLET 10 MG, 1 Every Day At Bedtime, 30 Dispensed, 1 Fills, status: CONTINUED, 11/06/2007. DARVOCET-N 100 ORAL TABLET 100-650 MG, 1 Every Six Hours, As Needed, 90 Dispensed, 1 Fills, status:CONTINUED, 11/06/2007. FINAL ACTION: trey 11/06/07 at 01:54 pm Electronically Signed by: Nanci Barnett on October documented in this encounter Plan of Treatment Upcoming Encounters Date Type Department Care Team (Late st Contact Info) Description 11/09/2024 1:20 PM INDUSTRIAL TRAINER Office Visit [facility] [place] [address] Mohinder Hadley MD [address] [place] [address] 11/10/2024 11:00 AM INDUSTRIAL TRAINER Office Visit [facility] Urology at the [facility] [address] [place] [address] Chirag Damon MD [address] [address] 01/04/2025 12:00 PM CDT Office Visit [facility] Urology at the [facility] [address] [place] [address] Tonia Melton PA [address] [address] documented as of this encounter Visit Diagnoses Not on filedocumented in this encounter Care Teams Supervisor Receiving And Processing Relationship Specialty Start Date End Date Mohinder Hadley MD [address] [place] [address] [address] [place] [address] PCP - General 06/03/07 documented as of this encounter
--- OUTSIDE RECORDS SUMMARY | 2024-10-30 16:47 | XMS_ITS | Encounter Summary ---
Author Organization [facility] Address [address] [place] [address] Care Team Providers Care Restaurant Greeter Name Role Phone Mohinder Hadley MD Primary Care Provider [phone] Encounter Details Date Type Department Care Team ([facility] Contact Info) Description 04/02/2007 Outpatient Historical [facility] Internal Medicine [address] [address] Mohinder Hadley MD [address] [place] [address] Social History Tobacco Use Types Packs/Day Years Used Date Smoking Tobacco: Never Assessed Sex and Gender Information Value Date Recorded Sex Assigned at Not on file Legal Sex Male 5:02 AM BINDER ROLLER Gender Identity Not on file Sexual Orientation Not on file documented as of this encounter Last Filed Vital Signs Vital Sign Reading Time Taken Comments Blood Pressure 150/70 04/02/2007 1:00 PM CDT Pulse - - Temperature - - Respiratory Rate - - Oxygen Saturation - - Inhaled Oxygen Concentration - - Weight 83.9 kg (185 lb) 04/02/2007 1:00 PM CDT Height - - Body Mass Index - - documented in this encounter Plan of Treatment Upcoming Encounters Date Type Department Care Team ([facility] Contact Info) Description 11/09/2024 1:20 PM BINDER ROLLER Office Visit [facility] Primary Care [address] [place] [address] Mohinder Hadley MD [address] [place] [address] [address] [place] [address] 11/10/2024 11:00 AM BINDER ROLLER Office Visit [facility] Urology at the [facility] [address] [place] [phone] Chirag Damon MD [address] [facility] [address] [place], [place] [phone] 01/04/2025 12:00 PM CDT Office Visit [facility] Urology at the [facility] [address] [place] [address] Tonia Melton PA [address] [facility] [address] [place], [place] [phone] documented as of this encounter Visit Diagnoses Not on filedocumented in this encounter Care Teams Restaurant Greeter Relationship Specialty Start Date End Date Mohinder Hadley MD [address] [place] [address] PCP - General 06/03/07 documented as of this encounter
--- OUTSIDE RECORDS SUMMARY | 2024-10-30 16:47 | XMS_ITS | Encounter Summary ---
Author Organization [facility] Address [address] [place] [address] Care Team Providers Care Interventionist Name Role Phone Mohinder Hadley MD Primary Care Provider [phone] Encounter Details Date Type Department Care Team (Late Contact Info) Description 01/01/2007 Outpatient Historical [facility] Internal Medicine [address] [address] Mohinder Hadley MD [address] [place] [address] [address] [place] [phone] Social History Tobacco Use Types Packs/Day Years Used Date Smoking Tobacco: Never Assessed Sex and Gender Information Value Date Recorded Sex Assigned at Not on file Legal Sex Male 5:02 AM TUNNEL HEADING SUPERVISOR Gender Identity Not on file Sexual Orientation Not on file documented as of this encounter Plan of Treatment Upcoming Encounters Date Type Department Care Team (Late Contact Info) Description 11/09/2024 1:20 PM TUNNEL HEADING SUPERVISOR Office Visit [facility] Primary Care [facility] [address] [place] [address] [address] [place] [address] Mohinder Hadley MD [address] [place] [address] [address] [place] [phone] 11/10/2024 11:00 AM TUNNEL HEADING SUPERVISOR Office Visit [facility] Urology at the [facility] [address] [place] [address] Chirag Damon MD [address] [facility] [address] [place] [address] 01/04/2025 12:00 PM CDT Office Visit [facility] Urology at the [facility] [address] [place] [address] Tonia Melton PA [address] [facility] [address] [place] [address] documented as of this encounter Visit Diagnoses Not on filedocumented in this encounter Care Teams Interventionist Relationship Specialty Start Date End Date Mohinder Hadley MD [address] [place] [phone] PCP - General 06/03/07 documented as of this encounter
--- OUTSIDE RECORDS SUMMARY | 2024-10-30 16:47 | XMS_ITS | Encounter Summary ---
Author Organization [facility] Address [address] [place] [address] Care Team Providers Care Diesel Maintenance Electrician Name Role Phone Mohinder Hadley MD Primary Care Provider [phone] Encounter Details Date Type Department Care Team (Late Contact Info) Description 08/21/2007 Outpatient Historical [facility] Internal Medicine [address] [address] Mohinder Hadley MD [address] [place] [address] [address] [place] [phone] Social History Tobacco Use Types Packs/Day Years Used Date Smoking Tobacco: Never Assessed Sex and Gender Information Value Date Recorded Sex Assigned at Not on file Legal Sex Male 5:02 AM PROGRAMMING INTERN Gender Identity Not on file Sexual Orientation Not on file documented as of this encounter Plan of Treatment Upcoming Encounters Date Type Department Care Team (Late Contact Info) Description 11/09/2024 1:20 PM PROGRAMMING INTERN Office Visit [facility] Primary Care [facility] [address] [place] [address] [address] [place] [phone] Mohinder Hadley MD [address] [place] [address] [address] [place] [address] 11/10/2024 11:00 AM PROGRAMMING INTERN Office Visit [facility] Urology at the [facility] [address] [place] [address] Chirag Damon MD [address] [facility] [address] [place] [address] 01/04/2025 12:00 PM CDT Office Visit [facility] Urology at the [facility] [address] [place] [address] Tonia Melton PA [address] [facility] [address] [place] [address] documented as of this encounter Visit Diagnoses Not on filedocumented in this encounter Care Teams Diesel Maintenance Electrician Relationship Specialty Start Date End Date Mohinder Hadley MD [address] [place] [phone] PCP - General 06/03/07 documented as of this encounter
--- OUTSIDE RECORDS SUMMARY | 2024-10-30 16:47 | XMS_ITS | Encounter Summary ---
Author Organization [facility] Address [address] [place] [address] Care Team Providers Care Loan Review Officer Name Role Phone Mohinder Hadley MD Primary Care Provider [phone] Encounter Details Date Type Department Care Team (Late Contact Info) Description 10/13/2007 Outpatient Historical [facility] Internal Medicine [address] [address] Mohinder Hadley MD [address] [place] [address] [address] [place] [phone] Social History Tobacco Use Types Packs/Day Years Used Date Smoking Tobacco: Never Assessed Sex and Gender Information Value Date Recorded Sex Assigned at Not on file Legal Sex Male 5:02 AM COMBUSTION ANALYST Gender Identity Not on file Sexual Orientation Not on file documented as of this encounter Plan of Treatment Upcoming Encounters Date Type Department Care Team (Late Contact Info) Description 11/09/2024 1:20 PM COMBUSTION ANALYST Office Visit [facility] Primary Care [facility] [address] [place] [address] [address] [place] [phone] Mohinder Hadley MD [address] [place] [address] [address] [place] [phone] 11/10/2024 11:00 AM COMBUSTION ANALYST Office Visit [facility] Urology at the [facility] [address] [place] [address] Chirag Damon MD [address] [facility] [address] [place] [address] 01/04/2025 12:00 PM CDT Office Visit [facility] Urology at the [facility] [address] [place] [address] Tonia Melton PA [address] [facility] [address] [place] [address] documented as of this encounter Visit Diagnoses Not on filedocumented in this encounter Care Teams Loan Review Officer Relationship Specialty Start Date End Date Mohinder Hadley MD [address] [place] [phone] PCP - General 06/03/07 documented as of this encounter
--- OUTSIDE RECORDS SUMMARY | 2024-10-30 16:47 | XMS_ITS | Encounter Summary ---
Author Organization [facility] Address [address] [place] [address] Care Team Providers Care Field Operations Technician Name Role Phone Mohinder Hdaley MD Primary Care Provider [phone] Encounter Details Date Type Department Care Team ([facility] Contact Info) Description 02/22/2004 Outpatient Historical [facility] Internal Medicine [address] [address] Mohinder Hadley MD [address] [place] [address] Social History Tobacco Use Types Packs/Day Years Used Date Smoking Tobacco: Never Assessed Sex and Gender Information Value Date Recorded Sex Assigned at Not on file Legal Sex Male 5:02 AM WIND TURBINE PERFORMANCE ENGINEER Gender Identity Not on file Sexual Orientation Not on file documented as of this encounter Last Filed Vital Signs Vital Sign Reading Time Taken Comments Blood Pressure 122/80 02/22/2004 1:45 PM CDT Pulse - - Temperature - - Respiratory Rate - - Oxygen Saturation - - Inhaled Oxygen Concentration - - Weight 91.2 kg (201 lb) 02/22/2004 1:45 PM CDT Height - - Body Mass Index - - documented in this encounter Plan of Treatment Upcoming Encounters Date Type Department Care Team ([facility] Contact Info) Description 11/09/2024 1:20 PM WIND TURBINE PERFORMANCE ENGINEER Office Visit [facility] Primary Care [address] [place] [address] Mohinder Hadley MD [address] [place] [address] [address] [place] [address] 11/10/2024 11:00 AM WIND TURBINE PERFORMANCE ENGINEER Office Visit [facility] Urology at the [facility] [address] [place] [phone] Chirag Damon MD [address] [facility] [address] [place], [place] [phone] 01/04/2025 12:00 PM CDT Office Visit [facility] Urology at the [facility] [address] [place] [address] Tonia Melton PA [address] [facility] [address] [place], [place] [phone] documented as of this encounter Visit Diagnoses Not on filedocumented in this encounter Care Teams Field Operations Technician Relationship Specialty Start Date End Date Mohinder Hadley MD [address] [place] [phone] PCP - General 06/03/07 documented as of this encounter
--- OUTSIDE RECORDS SUMMARY | 2024-10-30 16:47 | XMS_ITS | Encounter Summary ---
Author Organization [facility] Address [address] [place] [address] Care Team Providers Care Bench Worker Apprentice Name Role Phone Mohinder Hadley MD Primary Care Provider [phone] Encounter Details Date Type Department Care Team ([facility] Contact Info) Description 09/22/2004 Outpatient Historical [facility] Internal Medicine [address] [address] Mohinder Hadley MD [address] [place] [address] [address] [place] [address] Social History Tobacco Use Types Packs/Day Years Used Date Smoking Tobacco: Never Assessed Sex and Gender Information Value Date Recorded Sex Assigned at Not on file Legal Sex Male 5:02 AM AUTOMATIC SEAMER Gender Identity Not on file Sexual Orientation Not on file documented as of this encounter Last Filed Vital Signs Vital Sign Reading Time Taken Comments Blood Pressure 130/80 09/22/2004 11:30 AM AUTOMATIC SEAMER Pulse - - Temperature - - Respiratory Rate - - Oxygen Saturation - - Inhaled Oxygen Concentration - - Weight 92.1 kg (203 lb) 09/22/2004 11:30 AM AUTOMATIC SEAMER Height - - Body Mass Index - - documented in this encounter Plan of Treatment Upcoming Encounters Date Type Department Care Team ([facility] Contact Info) Description 11/09/2024 1:20 PM AUTOMATIC SEAMER Office Visit [facility] Primary Care [address] [place] [address] Mohinder Hadley MD [address] [place] [address] [address] [place] [address] 11/10/2024 11:00 AM AUTOMATIC SEAMER Office Visit [facility] Urology at the [facility] [address] [place] [phone] Chirag Damon MD [address] [facility] [address] [place], [place] [phone] 01/04/2025 12:00 PM CDT Office Visit [facility] Urology at the [facility] [address] [place] [phone] Tonia Melton PA [address] [phone] documented as of this encounter Visit Diagnoses Not on filedocumented in this encounter Care Teams Bench Worker Apprentice Relationship Specialty Start Date End Date Mohinder Hadley MD [address] [place] [address] PCP - General 06/03/07 documented as of this encounter
--- OUTSIDE RECORDS SUMMARY | 2024-10-30 16:47 | XMS_ITS | Encounter Summary ---
Author Organization [facility] Address [address] [place] [address] Care Team Providers Care Group Home Manager Name Role Phone Mohinder Hadley MD Primary Care Provider [phone] Reason for Visit * Reason Onset Date Comments YELLOW FLAG 06/27/2022 Encounter Details Date Type Department Care Team ([facility] st Contact Info) Description 06/27/2022 Telephone [facility] Primary Care [address] [place] [address] Mohinder Hadley MD [address] [facility] [address] [place] [address] YELLOW FLAG Social History Tobacco Use Types Packs/Day Years Used Date Smoking Tobacco: Never Smokeless Tobacco: Never Alcohol Use Standard Drinks/Week Comments No 0 (1 standard drink = 0.6 oz pur e alcohol) Financial Resource Strain Answer Date R ecorded How hard is it for you to pa y for the very basics like food, housing, medical care, and heating? Not hard at all 05/15/2022 Food Insecurity Answer Date Recorded In the past 12 months, have you worried that your food would run out before you had money to buy more? Never true 05/15/2022 In the past 12 months, did y ou run out of food and didn't have money to buy more? Never true 05/15/2022 Transportation Needs Answer Date Record ed In the past 12 months, has l ack of transportation kept you from medical appointments or from getting medications? No 05/15/2022 Lack of Transportation (Non-Medical) Not on file 05/15/2022 Sex and Gender Information Value Date Recorded Sex Assigned at Not on file Legal Sex Male 5:02 AM RETIREMENT OFFICER Gender Identity Not on file Sexual Orientation Not on file documented as of this encounter Functional Status * Does this person have serious difficulty walking or climbing stairs? Answer Date of Assessment Author No 04/18/2016 1:55 PM CDT documented as of this encounter Miscellaneous Notes * Telephone Encounter - Esthela Graves - 06/27/2022 1:31 PM CDT Informed and she states they will go to urgent care because the pt is unable to talk due to severe sore throat. * Telephone Encounter - Flaquita Ramires FNP - 06/27/2022 12:29 PM CDT Please call pt to offer appt with available provider. Worsening symptoms go to urgent care. * Telephone Encounter - Janeth Campos - 06/27/2022 10:52 AM CDT Caller Name: Julianna Relationship to patient: High Priority Symptom(s): headache, congestion,cough, excessive amount of mucus Duration/Onset of symptoms: x5 days What treatments or remedies has patient tried to treat this condition: halima Vasquez Additional Notes/Patient Question: Julianna is requesting an appointment or prescription. Patient hashad two negative over the counter covid tests. Julianna states the patients symptoms are getting worse. The patient's preferred pharmacy is [facility] [address] [place] [address] . Call Back number: [phone] This caller has been advised this message will be sent to the clinical co-worker in a high prioritymessage and they will be contacted with further instructions. Patient/Caller advised return call may come from a call with no caller ID indicated or Private number. documented in this encounter Plan of Treatment Upcoming Encounters Date Type Department Care Team (Late st Contact Info) Description 11/09/2024 1:20 PM RETIREMENT OFFICER Office Visit [facility] Primary Care [facility] [address] [facility] [address] [place] [phone] Mohinder Hadley MD [address] [facility] [address] [place] [phone] 11/10/2024 11:00 AM RETIREMENT OFFICER Office Visit [facility] Urology at the [facility] Medicine [address] [place] [address] Chirag Damon MD [address] [place] [address] 01/04/2025 12:00 PM CDT Office Visit [facility] Urology at the [facility] Medicine [address] [place] [address] Tonia Melton PA [address] [place] [address] documented as of this encounter Visit Diagnoses Not on filedocumented in this encounter Care Teams Group Home Manager Relationship Specialty Start Date End Date Mohinder Hadley MD [address] [facility] [address] [place] [phone] PCP - General 06/03/07 documented as of this encounter
--- OUTSIDE RECORDS SUMMARY | 2024-10-30 16:47 | XMS_ITS | Encounter Summary ---
Author Organization [facility] Address [address] [place] [address] Care Team Providers Care Structural Steel Fitter Name Role Phone Mohinder Hadley MD Primary Care Provider [phone] Encounter Details Date Type Department Care Team (Late st Contact Info) Description 04/02/2007 Orders Only [facility] Internal Medicine [address] [address] Mohinder Hadley MD [address] [place] [phone] Social History Tobacco Use Types Packs/Day Years Used Date Smoking Tobacco: Never Assessed Sex and Gender Information Value Date Recorded Sex Assigned at Not on file Legal Sex Male 5:02 AM CURRENCY EXCHANGE SPECIALIST Gender Identity Not on file Sexual Orientation Not on file documented as of this encounter Progress Notes * Mohinder Hadley MD - 02/25/2008 5:42 PM CDT WEIGHT: 185lbs BLOOD PRESSURE: 140/90 Right Arm Sitting NURSE NAME: Yazmin Sapp R CHIEF COMPLAINT Patient here for follow up hyperlipidemia, hypertension. HISTORY: HISTORY: 272.4-HYPERLIPIDEMIA The patient is not compliant with medication and misses doses frequently. 401.9-HYPERTENSION, UNSPECIFIED The patient is tolerating the medication. The patient denies chest pain, shortness of breath, dyspnea on exertion, pedal edema, or headache. 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 715.90-OSTEOARTHROSIS UNSPECIFIED The patient has had a recent flare. ROS: ENDOCRINE: No heat or cold intolerance, no excessive thirst. CARDIAC: No chest pain, palpitations, orthopnea, dyspnea on exertion, or paroxysmal nocturnal dyspnea. RESPIRATORY: No dyspnea, cough, hemoptysis or wheezing. : No dysuria or hematuria. GI: No abdominal pain, nausea, vomiting, diarrhea, constipation, melena, or hematochezia. PAST MEDICAL HISTORY: reviewed SOCIAL HISTORY: TOBACCO USE: Has no significant smoking history. DISCUSSED SMOKING: NS. OCCUPATION: . working [employer] ALCOHOL: Does not give any significant history of alcohol usage. PHYSICAL EXAMINATION: CONSTITUTIONAL: GENERAL APPEARANCE: Healthy appearing patient in no distress. EARS, NOSE, MOUTH AND THROAT: ORAL: Inspection of gums, lips, palate, and [...] or nodularity. Kidneys not palpable. MUSCULOSKELETAL EXAM: EXTREMITIES: BILATERAL LOWER EXTREMITIES: lat lower tenderness worse on left, no swelling SKIN: SKIN: Warm, dry, no diaphoresis, no significant lesions, irritation, rashes or ulcers. No induration, obvious subcutaneous nodules or tightening. ASSESSMENT/PLAN: 272.4-HYPERLIPIDEMIA advised restart med 311-DEPRESSION off med, pt does not want restart 401.9-HYPERTENSION, UNSPECIFIED inc med MEDICATIONS: DIOVAN HCT ORAL TABLET 320-12.5 MG, 1 Every Day, 90 Dispensed, status: NEW PRESCRIPTION, 04/02/2007. 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 REPEAT VITAL SIGNS: BLOOD PRESSURE: 150/70. Right Arm Sitting PREVENTIVE COUNSELING The patient was counseled regarding diet, regular sustained exercise for at least 30 minutes 3-4 times per week. Patient Education: Risks, benefits, and possible side effects of medication(s) were reviewed with the patient. RETURN VISIT : Patient instructed to return in 3 months. Electronically Signed by: Mohinder Hadley MD on Saturday, April 02, 2007 documented in this encounter Plan of Treatment Upcoming Encounters Date Type Department Care Team (Late st Contact Info) Description 11/09/2024 1:20 PM CURRENCY EXCHANGE SPECIALIST Office Visit [facility] [place] [address] Mohinder Hadley MD [address] [place] [address] [place], [place] [address] [phone] 11/10/2024 11:00 AM CURRENCY EXCHANGE SPECIALIST Office Visit [facility] Urology at the [facility] Medicine [address] [place] [phone] Chirag Damon MD [address] [address] 01/04/2025 12:00 PM CDT Office Visit [facility] Urology at the [facility] Medicine [address] [place] [phone] Tonia Melton PA [address] [address] documented as of this encounter Visit Diagnoses Not on filedocumented in this encounter Care Teams Structural Steel Fitter Relationship Specialty Start Date End Date Mohinder Hadley MD [address] [place] [address] [address] [place] [address] PCP - General 06/03/07 documented as of this encounter
--- OUTSIDE RECORDS SUMMARY | 2024-10-30 16:47 | XMS_ITS | Encounter Summary ---
Author Organization [facility] Address [address] [place] [address] Care Team Providers Care Sliver Machine Operator Name Role Phone Mohinder Hadley MD Primary Care Provider [phone] Encounter Details Date Type Department Care Team (Late Contact Info) Description 12/21/2005 Outpatient Historical [facility]3] Internal Medicine [address] [address] Mohinder Hadley MD [address] [place] [address] [address] [phone] Social History Tobacco Use Types Packs/Day Years Used Date Smoking Tobacco: Never Assessed Sex and Gender Information Value Date Recorded Sex Assigned at Not on file Legal Sex Male 5:02 AM FIXTURE BUILDER Gender Identity Not on file Sexual Orientation Not on file documented as of this encounter Plan of Treatment Upcoming Encounters Date Type Department Care Team (Late Contact Info) Description 11/09/2024 1:20 PM FIXTURE BUILDER Office Visit [facility] ([facility]3] Primary Care [facility] [address] [place] [address] [address] [place] [phone] Mohinder Hadley MD [address] [place] [address] [address] [place] [phone] 11/10/2024 11:00 AM FIXTURE BUILDER Office Visit [facility] ([facility]3] Urology at the [facility] [address] [place] [address] Chirag Damon MD [address] [facility] [address] [place] [address] 01/04/2025 12:00 PM CDT Office Visit [facility]3] Urology at the [facility] Medicine [address] [place] [address] Tonia Melton PA [address] [facility] [address] [place] [address] documented as of this encounter Visit Diagnoses Not on filedocumented in this encounter Care Teams Sliver Machine Operator Relationship Specialty Start Date End Date Mohinder Hadley MD [address] [place] [phone] PCP - General 06/03/07 documented as of this encounter
--- OUTSIDE RECORDS SUMMARY | 2024-10-30 16:47 | XMS_ITS | Referral Summary ---
Author Organization [facility] Address [address] [place] [address] Care Team Providers Care Budget Officer Name Role Phone Mohinder Hadley MD Primary Care Provider + Encounters Date Type Department Care Team Description 09/17/2024 1:20 PM RIVER TESTER Office Visit [facility] - [facility] ENT [address] [facility] [address] [place] [address] Nasra Jacobsen NP Tinnitus of both ears (Primary Dx); Bilateral hearing loss, unspecified hearing loss type from Last 3 Months Allergies No known active allergies Medications ALPRAZolam (XANAX) 0.5 mg tablet take 1 tablet by oral route 3 times every day 0 0 6 Active amLODIPine (NORVASC) 5 mg tablet take 1 tablet by oral route every day 0 0 6 Active atorvastatin (LIPITOR) 40 mg tablet Take 1 tablet (40 mg total) by mouth Active celecoxib (CeleBREX) 200 mg capsule [address] (CYMBALTA) 60 mg capsule [address] (NexIUM) 40 mg capsule Take by mouth. Activ e gabapentin (NEURONTIN) 300 mg capsule 1 capsule (300 mg total) 3 (three) times a day 7 Active levothyroxine (SYNTHROID, LEVOTHROID) 88 mcg tablet Take by mouth. Acti ve metoprolol XL (TOPROL-XL) 100 mg 24 hr tablet Take 1 tablet (100 mg total) by mouth daily Active tamsulosin (FLOMAX) 0.4 mg capsule,extende d release 24hr Take by mouth A ctive aspirin 81 mg enteric coated tablet Take 1 tablet (81 mg total) by mouth daily Active nitroglycerin (NITROSTAT) 0.[address] 1 tablet (0.4 mg total) under the tongue every 5 (five) minutes as needed for chest pain 90 tablet 3 0 Active potassium chloride ER (KLOR-CON) 10 mEq CR tablet Take 1 tablet/capsule (10 mEq total) by mouth 2 (two) times a day 0 Active ezetimibe (ZETIA) 10 mg tablet Take 1 tablet (10 mg total) by mouth daily 0 Active fluticasone propionate (FLONASE) 50 mcg/actuation nasal spray Administer 2 sprays into affected nostril(s) daily 1 Active meclizine (ANTIVERT) 25 mg tablet Take 1 tablet (25 mg total) by mouth 3 (three) times a day as needed Active oxyCODONE-aceta minophen (PERCOCET) 7.5-325 mg per tablet Take 1 tablet by mouth every 4 (four) hours as needed 1 Active losartan (COZAAR) 50 mg tablet Take 1 tablet (50 mg total) by mouth daily 3 Active cyclobenzaprine (FLEXERIL) 10 mg tablet Take 1 tablet (10 mg total) by mouth daily Active ticagrelor (BRILINTA) 90 mg tablet Take 1 tablet (90 mg total) by mouth 2 (two) times a day Active GINKGO BILOBA ORAL Take 60 mg by mouth daily Active HYDROcodone-daisha taminophen (NORCO) 5-325 mg per tabletIndicatio ns:Pain Take 1-2 tablets by mouth every 6 (six) hours as needed for pain 20 tablet 3 Active Active Problems Problem Noted Date Diagnosed Date Chronic systolic congestive heart failure (CMS/H CC) 06/03/2023 Gynecomastia 05/20/2023 Hepatic steatosis 05/20/2023 Prostate cancer 04/18/2023 Sensorineural hearing loss (SNHL) of both ears 1 10/24/2021 Assessment & Plan (08/24/2022 11:51 AM RIVER TESTER): Hearing test at [facility] - consider imaging if decreased from previous hearing testing Flonase 2 sprays into each nostril while looking down over the sink, do not sniff in or blow nose after use for at least 30 minutes Chronic congestion of paranasal sinus 08/24/2022 Assessment & Plan (08/24/2022 11:51 AM RIVER TESTER): Hearing test at [facility] - consider imaging if decreased from previous hearing testing Flonase 2 sprays into each nostril while looking down over the sink, do not sniff in or blow nose after use for at least 30 minutes Bronchiectasis 05/19/2022 Thickening of wall of gallbladder 10/25/2020 Right ureteral stone 04/05/2020 Old OR (myocardial infarction) 12/29/2019 Coronary artery disease invo lving seminole coronary artery of seminole heart without angina pectoris 09/23/2019 Cardiomyopathy, ischemic 09/23/2019 Essential hypertension 09/23/2019 Mixed hyperlipidemia 09/23/2019 Screen for colon cancer 09/08/2019 Overview (09/08/2019): Added automatically from request for surgery [id number] Prediabetes 08/20/2019 Dupuytren contracture 02/27/2018 Supraspinatus tendon tear 11/29/2016 Overview (04/29/2023): 11/23- MRI Left shoulder Constipation 07/17/2016 Elevated PSA 04/18/2015 Overview (04/29/2023): PSA list-5.41 in 10/17, 5.94 in 03/18, 6.57 in 08/19, 7.0 in 09/19 History prostate biopsy in October [address] Marcos. Pathology with inflammation, atrophy but no cancer. History prior biopsy years ago reportedly benign. Hypothyroidism 03/31/2014 Sleep apnea 07/31/2006 Disorder of prostate 10/22/2005 Overview (04/29/2023): PSA 3, 12/2006 Insomnia, unspecified 05/28/2005 Calculus of kidney 05/28/2005 Impotence of organic origin 06/27/2004 Moderate major depression (CMS/HCC) 05/22/2004 Umbilical hernia 02/22/2004 Osteoarthritis 02/22/2004 Esophagitis 02/22/2004 Social History Tobacco Use Types Packs/Day Years Used Date Smoking Tobacco: Never Smokeless Tobacco: Never Tobacco Cessation:Counseling Given: No Alcohol Use Standard Drinks/Week Comments No 0 (1 standard drink = 0.6 oz pur e alcohol) Personal Safety Answer Date Recorded Have you ever been in or are you currently in a harmful physical or emotional relationship or is someone making you feel afraid or unsafe? Denies 09/20/2023 Sex and Gender Information Value Date Recorded Sex Assigned at Not on file Legal Sex Male 7:10 PM RIVER TESTER Gender Identity Not on file Sexual Orientation Not on file Last Filed Vital Signs Vital Sign Reading Time Taken Comments Blood Pressure 197/105 09/17/2024 1:28 PM RIVER TESTER Pulse 80 09/17/2024 1:28 PM RIVER TESTER Temperature 36.6 ??C (97.9 ??F) 09/20/2023 12:[address] Respiratory Rate 16 09/20/2023 12:37 PM RIVER TESTER Oxygen Saturation 94% 09/20/2023 6:24 PM RIVER TESTER Inhaled Oxygen Concentration - - Weight 97.1 kg (214 lb) 09/17/2024 1:28 PM RIVER TESTER Height 167.6 cm (5' 6 ) 09/17/2024 1:28 PM RIVER TESTER Body Mass Index 34.54 09/17/2024 1:28 PM RIVER TESTER Plan of Treatment Not on file Medical Devices Implanted Type Area Oil Deliverer Device Identifier Shelf Expiration Date Model / Serial / Lot Stent- 5 Implanted:Qty: 1 on 05/23/2015 by Roxanna Thorne MD Stent [employer]ER / [id number] / [id number] Stent-09/19/20 17 Implanted:Qty: 1 on 09/19/2017 by Min Alexander MD Stent [employer] / / [id number] Procedures Procedure Name Priority Date/Time Associated Diagnosis Comments COLONOSCOPY 10/27/2019 9:56 AM RIVER TESTER from Last 3 Months or Most Recently Relevant to Health Maintenance Results * COLONOSCOPY (10/27/2019 9:56 AM RIVER TESTER) Anatomical Region Laterality Modality Other Narrative Procedure Note Jovany Miranda MD - 10/27/2019 9:56 AM CST [facility] Patient Name: Emmanuel Bowman Procedure Date: 10/27/2019 9:56 AM Date of : 1955 Admit Type: Outpatient Age: 63 Gender: Male Attending MD: Jovany Miranda M.D. Room: [facility] ENDOSCOPY ROOM 1 Note Status: Finalized Patient Profile: This is a 63 year old male. No family history ofcolon cancer. Procedure: Colonoscopy Indications: Screening for colorectal malignant neoplasm, Last colonoscopy: January 2013 Referring MD: Mohinder Hadley MD Providers: Jovany Miranda M.D. Impression: - One 4 mm polyp in the descending colon, removedwith a jumbo cold forceps. Resected and retrieved. - Diverticulosis in the sigmoid colon. - Internal hemorrhoids. Recommendation: - Await pathology results. - Repeat colonoscopy in 5-7 years for screening purposes. - Continue present medications. Medicines: Monitored Anesthesia Care Complications: No immediate complications. Estimated Blood Loss: Estimated blood loss: none. Procedure: Pre-Anesthesia Assessment: - Prior to the procedure, a History and Physical was performed, and patient medications and allergieswere reviewed. The patient's tolerance of previous anesthesia was also reviewed. The risks and benefitsof the procedure and the sedation options and riskswere discussed with the patient. All questions were answered, and informed consent was obtained. Prior Anticoagulants: The patient has taken antiplatelet medication, last dose was 1 day prior to procedure.ASA Grade Assessment: II - A patient with mild systemic disease. After reviewing the risks and benefits, the patient was deemed in satisfactory condition toundergo the procedure. The benefits, risks and alternatives of theprocedure and sedation were discussed and informed consent was obtained. All questions were answered. Please referto the signed informed consent document in the medical record. The bowel preparation used was Miralax. The bowel preparation used was bisacodyl tablets. Bowel prep was administered using a split dose. The scopewas passed under direct vision. The PediatricColonoscope [id number]-[id number] was introduced through the anusand advanced to the the cecum, identified by appendiceal orifice and ileocecal valve. The quality of thebowel preparation was excellent. Findings: The perianal and digital rectal examinations were normal. The cecum appeared normal. The ascending colon and transverse colon appeared normal. A 4 mm polyp was found in the descending colon. The polyp was semi-sessile. The polyp was removed with a jumbo cold forceps.Resection and retrieval were complete. Multiple small-mouthed diverticula were found in the sigmoid colon. Internal hemorrhoids were found during retroflexion. The hemorrhoids were medium-sized. Electronically signed by Jovany Miranda M.D. Jovany Miranda M.D. 10/27/2019 11:41:29 AM Number of Addenda: 0 Note Initiated On: 10/27/2019 9:56 AM Procedure Code(s): --- Professional --- 69051, Colonoscopy, flexible; with biopsy, single or multiple Diagnosis Code(s): --- Professional --- Z12.11, Encounter for screening for malignant neoplasm of colon K64.8, Other hemorrhoids D12.4, Benign neoplasm of descending colon K57.30, Diverticulosis of large intestine without perforation orabscess without bleeding CPT copyright 2017 [employer] [employer]. All rights reserved. The codes documented in this report are preliminary and upon fishing vessel captain reviewmay be revised to meet current compliance requirements. Recognized by the [place] [employer] for promoting quality in endoscopy Jovany Miranda MD ENDOSCOPY PROCEDURES Final Result from Last 3 Months or Most Recently Relevant to Health Maintenance [facility] RE[facility] MEDICARE [facility] MEDICARE Advance Directives For more information, please contact: [phone] * Full Code (Latest Code Status on File) Date Activated Date Inactivated Comments 10/27/2019 10:28 AM 10/27/2019 4:20 PM * Full Code Date Activated Date Inactivated Comments 10/27/2019 10:28 AM 10/27/2019 10:28 AM Care Teams Budget Officer Relationship Specialty Start Date End Date Mohinder Hadley MD [address] [place] [address] [place] [phone] PCP - General Internal Medicine 11/06/17
--- OUTSIDE RECORDS SUMMARY | 2024-10-30 16:47 | XMS_ITS | Encounter Summary ---
Author Organization [facility] Address [address] [place] [address] Care Team Providers Care Counter Tacker Name Role Phone Mohinder Hadley MD Primary Care Provider [phone] Encounter Details Date Type Department Care Team (Latest Contact Info) Description 06/03/2007 Outpatient Historical [facility] Internal Medicine [address] [address] Mohinder Hadley MD [address] [place] [address] [address] [place] [address] Unspecified Essential Hypertension (Primary Dx) Social History Tobacco Use Types Packs/Day Years Used Date Smoking Tobacco: Never Assessed Sex and Gender Information Value Date Recorded Sex Assigned at Not on file Legal Sex Male 5:02 AM PRINT SHOP HELPER Gender Identity Not on file Sexual Orientation Not on file documented as of this encounter Plan of Treatment Upcoming Encounters Date Type Department Care Team (Late st Contact Info) Description 11/09/2024 1:20 PM PRINT SHOP HELPER Office Visit [facility] Primary Care [facility] [address] [facility] [address] [place] [address] Mohinder Hadley MD [address] [place] [address] [address] [place] [address] 11/10/2024 11:00 AM PRINT SHOP HELPER Office Visit [facility] Urology at the [facility] [address] [facility] [address] [place] [address] Chirag Damon MD [address] [facility] [address] [place] [address] 01/04/2025 12:00 PM CDT Office Visit [facility] Urology at the [facility] Medicine [address] [place] [phone] Tonia Melton PA [address] [facility] [address] [place] [address] documented as of this encounter Procedures Procedure Name Priority Date/Time Associated Diagnosis Comments CBC WITH DIFFERENTIAL Routine 06/03/2007 10:27 AM CDT CBC WITH DIFFERENTIAL Routine 06/03/2007 10:27 AM CDT LIPID PANEL Routine 06/03/2007 10:27 AM CDT COMPREHENSIVE METABOLIC PANEL Routine 06/03/2007 10:27 AM CDT documented in this encounter Results * CBC WITH DIFFERENTIAL (06/03/2007 10:27 AM CDT) NEUTROPHILS 69 45 - 70 % INTERFAC E SYSTEM LYMPHOCYTES 21 16 - 45 % INTERFAC E SYSTEM MONOCYTES 9 3 - 13 % INTERFACE SYSTEM EOSINOPHILS 2 0 - 7 % INTERFAC E SYSTEM BASOPHILS 0 0 - 2 % INTERFACE SYSTEM NEUTROPHIL ABSOLUTE 6.18 1.90 - 7.00 K/uL INTERFACE SYSTEM LYMPHOCYTE ABSOLUTE 1.91 0.70 - 4.50 K/uL INTERFACE SYSTEM MONOCYTE ABSOLUTE 0.78 0.10 - 1.30 K/uL INTERFACE SYSTEM EOSINOPHIL ABSOLUTE 0.14 0.00 - 0.70 K/uL INTERFACE SYSTEM BASOPHILS ABSOLUTE 0.03 0.00 - 0.20 K/uL INTERFACE SYSTEM 06/03/2007 10:2 7 AM CDT us Mohinder Hadley MD HEMATOLOGY ORDERABLES Edited INTERFACE SYSTEM Refer to clinic/hospital department * (ABNORMAL) CBC WITH DIFFERENTIAL (06/03/2007 10:27 AM CDT) WBC 9.0 4.0 - 9.8 K/uL INTERFACE SYSTEM RBC 4.73 4.50 - 5.40 M/uL INTERFACE SYSTEM HEMOGLOBIN 15.5 13.6 - 16.5 g/dL INTERFACE SYSTEM HEMATOCRIT 45.0 40.0 - 48.0 % INTERFACE SYSTEM MCV 95.1 82.0 - 99.0 fL INTERFACE SYSTEM MCH 32.8(H) 27.2 - 32.6 pg INTERFACE SYSTEM MCHC 34.4 31.5 - 35.5 % INTERFACE SYSTEM RDW 13.2 11.5 - 14.5 % INTERFACE SYSTEM RDW-STDEV 45.9 37.1 - 48.7 fL INTERFACE SYSTEM PLATELETS 303 140 - 350 K/uL INTERFACE SYSTEM MPV 11.3 9.3 - 12.4 fL INTERFACE SYSTEM 06/03/2007 10:2 7 AM CDT us Mohinder Hadley MD HEMATOLOGY ORDERABLES Edited INTERFACE SYSTEM Refer to clinic/hospital department * COMPREHENSIVE METABOLIC PANEL (06/03/2007 10:27 AM CDT) GLUCOSE 84 65 - 99 mg/dL INTERFACE SYSTEM CREATININE 0.93 0.67 - 1.17 mg/dL INTERFACE SYSTEM CALCIUM 9.0 8.4 - 10.2 mg/dL INTERFACE SYSTEM ALKALINE PHOSPHATASE 56 40 - 129 U/L INTERFACE SYSTEM AST 19 12 - 38 U/L INTERFACE SYSTEM ALT 18 0 - 41 U/L INTERFACE SYSTEM TOTAL PROTEIN 6.9 6.3 - 8.6 g/dL INTERFACE SYSTEM ALBUMIN 4.3 3.4 - 4.8 g/dL INTERFACE SYSTEM BILIRUBIN TOTAL 0.3 0.2 - 1.0 mg/dL INTERFACE SYSTEM BUN 14 6 - 20 mg/dL INTERFACE SYSTEM SODIUM 142 135 - 145 mmol/L INTERFACE SYSTEM POTASSIUM 4.1 3.5 - 4.9 mmol/L INTERFACE SYSTEM CHLORIDE 105 96 - 108 mmol/L INTERFACE SYSTEM CO2 28 22 - 30 mmol/L INTERFACE SYSTEM GFR, >60 >=60 mL/min/1.7 sq meter INTERFACE SYSTEM GFR >60 >=60 mL/min/1.7 sq meter INTERFACE SYSTEM Comment: Estimated GFR rate interpretative information for both Americans and non- Americans is available on the [facility] Intranet at: http://Now In Store/unity/sjmmclab.nsf Select: Lab Policies and Procedures Select: Reference Ranges - GFR 06/03/2007 10:2 7 AM CDT Mohinder Hadley MD CHEMISTRY ORDERABLES Edited Performing Organization Address [facility] de Phone Number INTERFACE SYSTEM Refer to clinic/hospital department * (ABNORMAL) LIPID PANEL (06/03/2007 10:27 AM CDT) CHOLESTEROL 180 100 - 199 mg/dL INTERFACE SYSTEM TRIGLYCERIDE 112 10 - 149 mg/dL INTERFACE SYSTEM HDL 42 40 - 59 mg/dL INTERFACE SYSTEM CHOL/HDL RATIO 4.3 2.0 - 5.0 INTER FACE SYSTEM LDL CALCULATED 116(H) <=99 mg/dL INTERFACE SYSTEM LIPID PANEL COMMENT See Below INTERFACE SYSTEM Comment: The adult ATP and pediatric NCEP classifications for lipids are available on the [facility] Intranet at: http://Now In Store/[employer]/sjmmclab.nsf Select: Lab Policies and Procedures Select: Reference Ranges - Lipids 06/03/2007 10:2 7 AM CDT Mohinder Hadley MD CHEMISTRY ORDERABLES Edited Performing Organization Address [facility] de Phone Number INTERFACE SYSTEM Refer to clinic/hospital department documented in this encounter Visit Diagnoses Diagnosis Unspecified essential hypertension- Primary documented in this encounter Care Teams Counter Tacker Relationship Specialty Start Date End Date Mohinder Hadley MD [address] [place] [address] PCP - General 06/03/07 documented as of this encounter
--- OUTSIDE RECORDS SUMMARY | 2024-10-30 16:47 | XMS_ITS | Encounter Summary ---
Author Organization [facility] Address [address] [place] [address] Care Team Providers Care Cement Mason High[employer] Stre[employer] Name Role Phone Mohinder Hadley MD Primary Care Provider Encounter Details Date Type Department Care Team (Late st Contact Info) Description 06/16/2007 Orders Only [facility] Internal Medicine [address] [address] Mohinder Hadley MD [address] [place] [address] Social History Tobacco Use Types Packs/Day Years Used Date Smoking Tobacco: Never Assessed Sex and Gender Information Value Date Recorded Sex Assigned at Not on file Legal Sex Male 5:02 AM DEPARTMENT CLINICIAN Gender Identity Not on file Sexual Orientation Not on file documented as of this encounter Progress Notes * Mohinder Hadley MD - 02/20/2008 4:46 PM CDT TIME:01:27 pm PATIENT`S HOME PHONE: PATIENT`S WORK PHONE: PATIENT`S INSURANCE: [facility] WHO TOOK THE CALL: Toya Teran L GENERAL INFORMATION WHO CALLED: Pharmacy called. PHARMACY NUMBER: [phone] SECTION 1: REQUESTED ACTION licasl 06/16/07 at 01:27 pm: MEDICATION REQUEST: MEDICATION REQUEST: Patient requests a refill. gen Flexeril 10 mg. #30 05/09/07 DOCTOR`S RESPONSE: adrianna 06/16/07 at 01:39 pm MEDICATIONS: FLEXERIL ORAL TABLET 10 MG, 1 Every Day At Bedtime, 30 Dispensed, 1 Fills, status: CONTINUED, 06/16/2007. FINAL ACTION: trey 06/16/07 at 05:29 pm Called pharmacy at 06/16/07 at 05:29 pm. Electronically Signed by: Nanci Barnett on Saturday, June 16, 2007 documented in this encounter Plan of Treatment Upcoming Encounters Date Type Department Care Team (Late st Contact Info) Description 11/09/2024 1:20 PM DEPARTMENT CLINICIAN Office Visit [facility] Primary Care [facility] [address] [place] [address] [facility] [place] [address] Mohinder Hadley MD [address] [place] [address] [address] [place] [phone] 11/10/2024 11:00 AM DEPARTMENT CLINICIAN Office Visit [facility] Urology at the [facility] Medicine [address] [facility] [address] [place] [address] Chirag Damon MD [address] [address] 01/04/2025 12:00 PM CDT Office Visit [facility] Urology at the [facility] Medicine [address] [facility] [address] [place] [address] Tonia Melton PA [address] [address] documented as of this encounter Visit Diagnoses Not on filedocumented in this encounter Care Teams Cement Mason [employer] Stre[employer] Relationship Specialty Start Date End Date Mohinder Hadley MD [address] [facility] [address] [place] [address] PCP - General 06/03/07 documented as of this encounter
--- OUTSIDE RECORDS SUMMARY | 2024-10-30 16:47 | XMS_ITS | Encounter Summary ---
Author Organization [facility] Address [address] [place] [address] Care Team Providers Care Transformation Analyst Name Role Phone Mohinder Hadley MD Primary Care Provider [phone] Encounter Details Date Type Department Care Team ([facility] Contact Info) Description 10/22/2005 Outpatient Historical [facility] Internal Medicine [address] [address] Mohinder Hadley MD [address] [place] [address] [address] [place] [address] Social History Tobacco Use Types Packs/Day Years Used Date Smoking Tobacco: Never Assessed Sex and Gender Information Value Date Recorded Sex Assigned at Not on file Legal Sex Male 5:02 AM QC TECH Gender Identity Not on file Sexual Orientation Not on file documented as of this encounter Last Filed Vital Signs Vital Sign Reading Time Taken Comments Blood Pressure 130/80 10/22/2005 1:00 PM QC TECH Pulse - - Temperature 36.2 ??C (97.2 ??F) 10/22/2005 1:00 PM CS T Respiratory Rate - - Oxygen Saturation - - Inhaled Oxygen Concentration - - Weight 88.9 kg (196 lb) 10/22/2005 1:00 PM QC TECH Height - - Body Mass Index - - documented in this encounter Plan of Treatment Upcoming Encounters Date Type Department Care Team ([facility] Contact Info) Description 11/09/2024 1:20 PM QC TECH Office Visit [facility] Primary Care [address] [place] [address] Mohinder Hadley MD [facility] [address] [place] [phone] 11/10/2024 11:00 AM QC TECH Office Visit [facility] Urology at the [facility] Medicine [address] [place] [address] Chirag Damon MD [address] [facility] [address] [place] [address] 01/04/2025 12:00 PM CDT Office Visit [facility] Urology at the [facility] [address] [place] [address] Tonia Melton PA [address] [facility] [address] [place] [address] documented as of this encounter Visit Diagnoses Not on filedocumented in this encounter Care Teams Transformation Analyst Relationship Specialty Start Date End Date Mohinder Hadley MD [address] [place] [address] [address] [place] [phone] PCP - General 06/03/07 documented as of this encounter
--- OUTSIDE RECORDS SUMMARY | 2024-10-30 16:47 | XMS_ITS | Encounter Summary ---
Author Organization [facility] Address [address] [place] [address] Care Team Providers Care Coke Drawer Name Role Phone Mohinder Hadley MD Primary Care Provider [phone] Encounter Details Date Type Department Care Team ([facility] Contact Info) Description 07/04/2007 Outpatient Historical [facility] Internal Medicine [address] [address] Mohinder Hadley MD [address] [place] [address] [address] [place] [address] Social History Tobacco Use Types Packs/Day Years Used Date Smoking Tobacco: Never Assessed Sex and Gender Information Value Date Recorded Sex Assigned at Not on file Legal Sex Male 5:02 AM DATA PROCESSING SPECIALIST Gender Identity Not on file Sexual Orientation Not on file documented as of this encounter Last Filed Vital Signs Vital Sign Reading Time Taken Comments Blood Pressure 126/84 07/04/2007 1:00 PM CDT Pulse - - Temperature - - Respiratory Rate - - Oxygen Saturation - - Inhaled Oxygen Concentration - - Weight 83.5 kg (184 lb) 07/04/2007 1:00 PM CDT Height - - Body Mass Index - - documented in this encounter Plan of Treatment Upcoming Encounters Date Type Department Care Team ([facility] Contact Info) Description 11/09/2024 1:20 PM DATA PROCESSING SPECIALIST Office Visit [facility] Primary Care [address] [place] [address] Mohinder Hadley MD [address] [place] [address] [address] [place] [address] 11/10/2024 11:00 AM DATA PROCESSING SPECIALIST Office Visit [facility] Urology at the [facility] Medicine [address] [address] [address] [address] [place] [phone] Chirag Damon MD [address] [facility] [address] [place], [place] [phone] 01/04/2025 12:00 PM CDT Office Visit [facility] Urology at the [facility] [address] [facility] [address] [place] [address] Tonia Melton PA [address] [facility] [address] [place], [place] [phone] documented as of this encounter Visit Diagnoses Not on filedocumented in this encounter Care Teams Coke Drawer Relationship Specialty Start Date End Date Mohinder Hadley MD [address] [place] [address] PCP - General 06/03/07 documented as of this encounter
--- OUTSIDE RECORDS SUMMARY | 2024-10-30 16:47 | XMS_ITS | Encounter Summary ---
Author Organization [facility] Address [address] [place] [address] Care Team Providers Care Heel Molder Name Role Phone Mohinder Hadley MD Primary Care Provider [phone] Encounter Details Date Type Department Care Team ([facility] Contact Info) Description 03/30/2004 Outpatient Historical [facility] Internal Medicine [address] [address] Mohinder Hadley MD [address] [place] [address] Social History Tobacco Use Types Packs/Day Years Used Date Smoking Tobacco: Never Assessed Sex and Gender Information Value Date Recorded Sex Assigned at Not on file Legal Sex Male 5:02 AM RN ACCESS Gender Identity Not on file Sexual Orientation Not on file documented as of this encounter Last Filed Vital Signs Vital Sign Reading Time Taken Comments Blood Pressure 150/94 03/30/2004 10:45 AM CDT Pulse - - Temperature - - Respiratory Rate - - Oxygen Saturation - - Inhaled Oxygen Concentration - - Weight 92.1 kg (203 lb) 03/30/2004 10:45 AM CDT Height - - Body Mass Index - - documented in this encounter Plan of Treatment Upcoming Encounters Date Type Department Care Team ([facility] Contact Info) Description 11/09/2024 1:20 PM RN ACCESS Office Visit [facility] Primary Care [address] [place] [address] Mohinder Hadley MD [address] [place] [address] [address] [place] [address] 11/10/2024 11:00 AM RN ACCESS Office Visit [facility] Urology at the [facility] Medicine [address] [facility] [address] [address] [place] [phone] Chirag Damon MD [address] [facility] 330 [place], [place] [phone] 01/04/2025 12:00 PM CDT Office Visit [facility] Urology at the [facility] [address] [facility] [address] [place] [address] Tonia Melton PA [address] [facility] [address] [place], [place] [phone] documented as of this encounter Visit Diagnoses Not on filedocumented in this encounter Care Teams Heel Molder Relationship Specialty Start Date End Date Mohinder Hadley MD [address] [place] [address] PCP - General 06/03/07 documented as of this encounter
--- OUTSIDE RECORDS SUMMARY | 2024-10-30 16:47 | XMS_ITS | Encounter Summary ---
Author Organization [facility] Address [address] [place] [address] Care Team Providers Care Medical Claims Representative Name Role Phone Mohinder Hadley MD Primary Care Provider [phone] Encounter Details Date Type Department Care Team (Late Contact Info) Description 12/09/2007 Outpatient Historical [facility] Internal Medicine [address] [address] Mohinder Hadley MD [address] [place] [address] [address] [place] [phone] Social History Tobacco Use Types Packs/Day Years Used Date Smoking Tobacco: Never Assessed Sex and Gender Information Value Date Recorded Sex Assigned at Not on file Legal Sex Male 5:02 AM DEMAND PLANNING MANAGER Gender Identity Not on file Sexual Orientation Not on file documented as of this encounter Plan of Treatment Upcoming Encounters Date Type Department Care Team (Late Contact Info) Description 11/09/2024 1:20 PM DEMAND PLANNING MANAGER Office Visit [facility] Primary Care [facility] [address] [place] [address] [address] [place] [phone] Mohinder Hadley MD [address] [place] [address] [address] [place] [phone] 11/10/2024 11:00 AM DEMAND PLANNING MANAGER Office Visit [facility] Urology at the [facility] [address] [place] [address] Chirag Damon MD [address] [facility] 330 [place] [address] 01/04/2025 12:00 PM CDT Office Visit [facility] Urology at the [facility] Medicine [address] [facility] [address] [place] [address] Tonia Melton PA [address] [facility] [address] [place] [address] documented as of this encounter Visit Diagnoses Not on filedocumented in this encounter Care Teams Medical Claims Representative Relationship Specialty Start Date End Date Mohinder Hadley MD [address] [place] [phone] PCP - General 06/03/07 documented as of this encounter
--- OUTSIDE RECORDS SUMMARY | 2024-10-30 16:47 | XMS_ITS | Patient Health Summary ---
Author Organization [facility] Address [address] [facility] [place] [address] Care Team Providers Care Rod Puller And Coiler Name Role Phone Unavailable Primary Care Provider Unavailabl e Note from [facility],non-owned Affiliates and Associated Physician Practices is amultiple site organization consisting of ambulatory clinics and hospital sitesin [place], [place], [place] and [place]. This disclosure is being madepursuant to the Care Everywhere program and may not contain all information available regarding this patient. Last updated 18.[facility] [place] Allergies No known active allergies Medications * Be aware that medications may not be up to date on this document. Alwaysverify current medications with the patient. * hydrocodone-acetaminophen (NORCO) 5-325 MG tablet(Started 06/28/2013) Take 1 Tab by mouth every 6 hours as needed for Pain. Social History Tobacco Use Types Packs/Day Years Used Date Smoking Tobacco: Never Assessed Sex and Gender Information Value Date Recorded Sex Assigned at Not on file Gender Identity Not on file Sexual Orientation Not on file Last Filed Vital Signs Vital Sign Reading Time Taken Comments Blood Pressure 182/87 06/28/2013 1:00 AM CDT Pulse 51 06/28/2013 1:05 AM CDT Temperature - - Respiratory Rate 10 06/28/2013 1:05 AM CDT Oxygen Saturation 98% 06/28/2013 1:05 AM CDT Inhaled Oxygen Concentration - - Weight 81.6 kg (180 lb) 06/27/2013 9:22 PM CDT Height 167.6 cm (5' 6 ) 06/27/2013 9:22 PM CDT Body Mass Index 29.05 06/27/2013 9:22 PM CDT Procedures * SARS-COV-2 (COVID-19) IN HOUSE(Performed 04/16/2020) * SARS-COV-2 (COVID-19) IN HOUSE(Performed 04/05/2020) * CT ABDOMEN PELVIS WO CONTRAST(Performed 06/27/2013) Performed for Abdominal pain, acute * URINALYSIS REFLEX MICROSCOPIC REFLEX CULTURE(Performed 06/27/2013) * LIPASE BLOOD(Performed 06/27/2013) * COMPREHENSIVE METABOLIC PANEL(Performed 06/27/2013) * CBC W AUTO DIFFERENTIAL(Performed 06/27/2013) Results * SARS-COV-2 (COVID-19) IN HOUSE (04/16/2020 2:00 PM CDT) Only the most recent of2 resultswithin the time period is included. COVID-19 PCR Not detected Not detected, Invalid 04/17/2020 8:57 PM CDT [facility] Microbiology SPECIMEN FROM NASOPHARYNGEAL STRUCTURE / Unknown Collection / Unknown 04/16/2020 2:00 PM CDT 04/17/2020 4:32 PM CDT Narrative [facility] - 04/17/2020 8:57 PM CDT This nucleic acid amplification assay performance was validated by [facility]. This test has been authorized [...] Graciela Valdez MD LAB - MICROBIOLOGY ORDERABLES [facility] [address] [place] [address], [facility] [phone] * CT ABDOMEN AND PELVIS NON IV CONTRAST (06/27/2013 11:48 PM CDT) Anatomical Region Laterality Modality Abdomen, Pelvis Computed Tomogra phy 06/28/2013 9:41 AM CDT Impressions 06/28/2013 10:11 AM CDT Bilateral nonobstructing renal calculi. Small calculus in the bladder. Edited by Jerri Mckinley on 06/28/2013 9:48 AM Narrative 06/28/2013 10:[address] ABDOMEN AND PELVIS WITHOUT IV CONTRAST INDICATION: Right upper quadrant abdominal pain. TECHNIQUE: Helical CT images of the abdomen and pelvis obtained without IV contrast. Preliminary report was provided by [facility]. FINDINGS CT Abdomen: Scans of the lung bases are unremarkable. The unenhanced liver, spleen and pancreas are unremarkable. Gallbladder is present. The adrenals are unremarkable. There are multiple bilateral tiny nonobstructing renal calculi. The largest of these is in the midpole collecting system measuring 5 mm. Loops of bowel are of normal caliber. CT Pelvis: The appendix is seen and appears unremarkable. No ureteral calculi are identified. A small calculus is seen in the base of the bladder at the midline, image 84, measuring 3 mm and likely consistent with a recently passed stone. There is no free fluid. Procedure Note Carla Gar MD - 06/28/2013 CT ABDOMEN AND PELVIS WITHOUT IV CONTRAST INDICATION: Right upper quadrant abdominal pain. TECHNIQUE: Helical CT images of the abdomen and pelvis obtained without IV contrast. Preliminary report was provided by [facility]. FINDINGS CT Abdomen: Scans of the lung bases are unremarkable. The unenhanced liver, spleen and pancreas are unremarkable. Gallbladder is present. The adrenals are unremarkable. There are multiple bilateral tiny nonobstructing renal calculi. The largest of these is in the midpole collecting system measuring 5 mm. Loops of bowel are of normal caliber. CT Pelvis: The appendix is seen and appears unremarkable. No ureteral calculi are identified. A small calculus is seen in the base of the bladder at the midline, image 84, measuring 3 mm and likely consistent with a recently passed stone. There is no free fluid. IMPRESSION Bilateral nonobstructing renal calculi. Small calculus in the bladder. Edited by Jerri Mckinley on 06/28/2013 9:48 AM Douglas Whitman MD CT ORDERABLES * (ABNORMAL) URINALYSIS ROUTINE W/REFLEX TO CULTURE (06/27/2013 10:00 PM CDT) Color UA Yellow Straw, Yellow, Dark Yellow 06/27/2013 10:30 PM CDT [facility] Clarity UA Clear 06/27/2013 10:30 PM CDT [facility] Specific [place] UA 1.011 1.005 - 1.030 06/27/2013 10:30 PM CDT [facility] pH UA 7.0 5.0 - 8.0 06/27/2013 10:30 PM CDT [facility] Protein UA Negative Negative 06/27/2013 10:30 PM CDT [facility] Blood UA 2+(A) Negative 06/27/2013 10:30 PM CDT [facility] Leukocyte UA Negative Negative 06/27/2013 10:30 PM CDT [facility] Nitrite UA Negative Negative 06/27/2013 10:30 PM CDT [facility] Glucose UA Negative Negative 06/27/2013 10:30 PM CDT [facility] Ketone UA Negative Negative 06/27/2013 10:30 PM CDT [facility] Bilirubin UA Negative Negative 06/27/2013 10:30 PM CDT [facility] Urobilinogen UA 0.2 0.1 - 1.0 EU/dL 06/27/2013 10:30 PM CDT [facility] WBC UA Auto 0-2 0-2, 2-5 #/hpf 06/27/2013 10:30 PM CDT [facility] RBC UA Auto 10-20(A) 0-2, 2-5 #/hpf 06/27/2013 10:30 PM CDT [facility] Epithelial Cell UA Auto 0-2 0-2, 2-5 #/hpf 06/27/2013 10:30 PM CDT [facility] Bacteria UA Auto None seen None seen 06/27/2013 10:30 PM CDT [facility] Hyaline Casts UA Auto 0-2 0 - 2 #/lpf 06/27/2013 10:30 PM CDT [facility] Reflex Status Culture not indicated 06/27/2013 10:30 PM CDT [facility] Urine URINE SPECIMEN OBTAINED BY CLEAN CATCH PROCEDURE / Unknown 06/27/2013 10:00 PM CDT 06/27/2013 10:11 PM CDT Douglas Whitman MD LAB - URINALYSIS ORD ERABLES [facility] [address] [place] [address] * CBC W AUTO DIFFERENTIAL (06/27/2013 9:50 PM CDT) WBC 8.1 4.4 - 10.7 x10^9/L 06/27/2013 10:30 PM CDT [facility] RBC 4.77 3.80 - 5.40 x10^12/L 06/27/2013 10:30 PM CDT [facility] Hemoglobin 14.9 12.0 - 17.6 g/dL 06/27/2013 10:30 PM CDT [facility] Hematocrit 43.1 35.2 - 51.7 % 06/27/2013 10:30 PM CDT [facility] MCV 90.4 80.7 - 98.3 fl 06/27/2013 10:30 PM CDT [facility] MCH 31.2 26.7 - 34.0 pg 06/27/2013 10:30 PM CDT [facility] MCHC 34.6 30.8 - 35.9 gm/dL 06/27/2013 10:30 PM CDT [facility] Platelet Count 251 153 - 416 x10^9/L 06/27/2013 10:30 PM CDT [facility] RDW-CV 13.4 12.1 - 14.9 % 06/27/2013 10:30 PM CDT [facility] MPV 10.7 9.4 - 12.9 fl 06/27/2013 10:30 PM CDT [facility] Neutrophils % 66.8 44.0 - 73.0 % 06/27/2013 10:30 PM CDT [facility] Lymphocytes % 20.2 20.0 - 43.0 % 06/27/2013 10:30 PM CDT [facility] Monocytes % 9.9 5.0 - 13.0 % 06/27/2013 10:30 PM CDT [facility] Eosinophils % 2.4 0.0 - 6.0 % 06/27/2013 10:30 PM CDT [facility] Basophils % 0.6 0.0 - 2.0 % 06/27/2013 10:30 PM CDT [facility] Immature Granulocytes 0.1 0 - 1 % 06/27/2013 10:30 PM CDT [facility] Neutrophil Absolute 5.40 2.01 - 7.14 x10^9/L 06/27/2013 10:30 PM CDT [facility] Lymphocytes Absolute 1.63 1.07 - 3.94 x10^9/L 06/27/2013 10:30 PM CDT [facility] Monocytes Absolute 0.80 0.26 - 1.07 x10^9/L 06/27/2013 10:30 PM CDT [facility] Eosinophils Absolute 0.19 0 - 0.47 x10^9/L 06/27/2013 10:30 PM CDT [facility] Basophils Absolute 0.05 0 - 0.08 x10^9/L 06/27/2013 10:30 PM CDT [facility] Immature Granulocytes Absolute 0.01 0.00 - 0.06 x10^9/L 06/27/2013 10:30 PM CDT [facility] Blood BLOOD SPECIMEN / Unknown 06/27/2013 9:50 PM CDT 06/27/2013 10:11 PM CDT Douglas Whitman MD LAB - HEMATOLOGY ORD ERABLES [facility] [address] [place] [address] * COMPREHENSIVE METABOLIC PANEL (06/27/2013 9:50 PM CDT) [facility] Signature Glucose 88 74 - 106 mg/dL 06/27/2013 10:31 PM CDT [facility] Sodium 143 136 - 145 mmol/L 06/27/2013 10:31 PM CDT [facility] Potassium 3.7 3.5 - 5.1 mmol/L 06/27/2013 10:31 PM CDT [facility] Chloride 107 98 - 107 mmol/L 06/27/2013 10:31 PM CDT [facility] CO2 29 22 - 31 mmol/L 06/27/2013 10:31 PM CDT [facility] Calcium 8.6 8.5 - 10.1 mg/dL 06/27/2013 10:31 PM CDT [facility] Anion Gap 7 5 - 15 mmol/L 06/27/2013 10:31 PM CDT [facility] BUN 16 7 - 21 mg/dL 06/27/2013 10:31 PM CDT [facility] Creatinine 0.87 0.50 - 1.30 mg/dL 06/27/2013 10:31 PM CDT [facility] eGFR by MDRD >60 >60 ml/min/1.7 3m2 06/27/2013 10:31 PM CDT [facility] eGFR by MDRD >60 >60 ml/min/1.7 3m2 06/27/2013 10:31 PM CDT [facility] Alkaline Phosphatase 96 38 - 126 U/L 06/27/2013 10:31 PM CDT [facility] ALT 33 12 - 78 U/L 06/27/2013 10:31 PM CDT [facility] AST 29 5 - 40 U/L 06/27/2013 10:31 PM CDT [facility] Protein Total 7.1 6.4 - 8.2 gm/dL 06/27/2013 10:31 PM CDT [facility] Albumin 4.0 3.4 - 5.0 gm/dL 06/27/2013 10:31 PM CDT [facility] Bilirubin Total 0.3 0.2 - 1.0 mg/dL 06/27/2013 10:31 PM CDT [facility] Blood BLOOD SPECIMEN / Unknown 06/27/2013 9:50 PM CDT 06/27/2013 10:11 PM CDT Douglas Whitman MD LAB - CHEMISTRY JORDEN Artist [employer] Performing Organization Address City/[facility]/ZIP Co de Phone Number [facility] [address] [place] [address] * LIPASE BLOOD (06/27/2013 9:50 PM CDT) Lipase 155 73 - 393 U/L 06/27/2013 10:29 PM CDT [facility] Blood BLOOD SPECIMEN / Unknown 06/27/2013 9:50 PM CDT 06/27/2013 10:11 PM CDT Douglas Whitman MD LAB - CHEMISTRY ORDE Artist [employer] [facility] [address] [place] [address]
--- OUTSIDE RECORDS SUMMARY | 2024-10-30 16:47 | XMS_ITS | Encounter Summary ---
Author Organization [facility] Address [address] [place] [address] Care Team Providers Care Core Carrier Name Role Phone Mohinder Hadley MD Primary Care Provider [phone] Encounter Details Date Type Department Care Team (Late Contact Info) Description 12/21/2005 Outpatient Historical [facility] Internal Medicine [address] [address] Mohinder Hadley MD [address] [place] [address] [address] [phone] Social History Tobacco Use Types Packs/Day Years Used Date Smoking Tobacco: Never Assessed Sex and Gender Information Value Date Recorded Sex Assigned at Not on file Legal Sex Male 5:02 AM STENCIL TYPIST Gender Identity Not on file Sexual Orientation Not on file documented as of this encounter Plan of Treatment Upcoming Encounters Date Type Department Care Team (Late Contact Info) Description 11/09/2024 1:20 PM STENCIL TYPIST Office Visit [facility] Primary Care [facility] [address] [place] [address] [address] [place] [phone] Mohinder Hadley MD [address] [place] [address] [address] [place] [phone] 11/10/2024 11:00 AM STENCIL TYPIST Office Visit [facility] Urology at the [facility] [address] [place] [address] Chirag Damon MD [address] [facility] [address] [place] [address] 01/04/2025 12:00 PM CDT Office Visit [facility] Urology at the [facility] Medicine [address] [place] [address] Tonia Melton PA [address] [facility] [address] [place] [address] documented as of this encounter Visit Diagnoses Not on filedocumented in this encounter Care Teams Core Carrier Relationship Specialty Start Date End Date Mohinder Hadley MD [address] [place] [phone] PCP - General 06/03/07 documented as of this encounter
--- OUTSIDE RECORDS SUMMARY | 2024-10-30 16:47 | XMS_ITS | Encounter Summary ---
Author Organization [facility] Address [address] [place] [address] Care Team Providers Care Rig Operator Name Role Phone Mohinder Hadley MD Primary Care Provider [phone] Encounter Details Date Type Department Care Team (Late st Contact Info) Description 06/20/2007 Orders Only [facility] Internal Medicine [address] [address] Mohinder Hadley MD [address] [place] [phone] Social History Tobacco Use Types Packs/Day Years Used Date Smoking Tobacco: Never Assessed Sex and Gender Information Value Date Recorded Sex Assigned at Not on file Legal Sex Male 5:02 AM CUPOLA CHARGER Gender Identity Not on file Sexual Orientation Not on file documented as of this encounter Progress Notes * Mohinder Hadley MD - 02/20/2008 5:17 PM CDT TIME:02:27 pm PATIENT`S HOME PHONE: PATIENT`S WORK PHONE: PATIENT`S INSURANCE: [facility] WHO TOOK THE CALL: Toya Teran L GENERAL INFORMATION WHO CALLED: Pharmacy called. PHARMACY NUMBER: [phone] SECTION 1: REQUESTED ACTION rabia 06/20/07 at 02:30 pm: MEDICATION REQUEST: MEDICATION REQUEST: Patient requests a refill. gen Stephane Mendoza100 #[id number] LF 04/08/07 DOCTOR`S RESPONSE: adrianna 06/20/07 at 12:35 pm MEDICATIONS: DARVOCET-N 100 ORAL TABLET 100-650 MG, 1 Every Six Hours, As Needed, 90 Dispensed, 1 Fills, status:CONTINUED, 06/20/2007. FINAL ACTION: sumit 06/20/07 at 02:41 pm Called pharmacy at 06/20/07 at 02:42 pm. Electronically Signed by: Airam Keenan on Wednesday, June 20, 2007 documented in this encounter Plan of Treatment Upcoming Encounters Date Type Department Care Team (Late st Contact Info) Description 11/09/2024 1:20 PM CUPOLA CHARGER Office Visit [facility]3] Primary Care [address] [place], [place] [phone] Mohinder Hadley MD [address] [place] [address] [place] [address] 11/10/2024 11:00 AM CUPOLA CHARGER Office Visit [facility]3] Urology at the [facility] Medicine [address] [place] [phone] Chirag Damon MD [address] [address] 01/04/2025 12:00 PM CDT Office Visit [facility]3] Urology at the [facility] Medicine [address] [place] [phone] Tonia Melton PA [address] [address] documented as of this encounter Visit Diagnoses Not on filedocumented in this encounter Care Teams Rig Operator Relationship Specialty Start Date End Date Mohinder Hadley MD [address] [place] [address] [address] [place] [phone] PCP - General 06/03/07 documented as of this encounter
--- OUTSIDE RECORDS SUMMARY | 2024-10-30 16:47 | XMS_ITS | Encounter Summary ---
Author Organization [facility] Address [address] [place] [address] Care Team Providers Care Acoustic Warfare Analyst Name Role Phone Mohinder Hadley MD Primary Care Provider [phone] Encounter Details Date Type Department Care Team ([facility] Contact Info) Description 01/21/2006 Outpatient Historical [facility] Internal Medicine [address] [address] Mohinder Hadley MD [address] [place] [phone] Social History Tobacco Use Types Packs/Day Years Used Date Smoking Tobacco: Never Assessed Sex and Gender Information Value Date Recorded Sex Assigned at Not on file Legal Sex Male 5:02 AM BACK UP WORKER Gender Identity Not on file Sexual Orientation Not on file documented as of this encounter Last Filed Vital Signs Vital Sign Reading Time Taken Comments Blood Pressure 130/80 01/21/2006 1:00 PM CDT Pulse - - Temperature - - Respiratory Rate - - Oxygen Saturation - - Inhaled Oxygen Concentration - - Weight 90.7 kg (200 lb) 01/21/2006 1:00 PM CDT Height - - Body Mass Index - - documented in this encounter Plan of Treatment Upcoming Encounters Date Type Department Care Team ([facility] Contact Info) Description 11/09/2024 1:20 PM BACK UP WORKER Office Visit [facility] Primary Care [address] [place] [address] Mohinder Hadley MD [address] [place] [address] [address] [place] [address] 11/10/2024 11:00 AM BACK UP WORKER Office Visit [facility] Urology at the [facility] Medicine [address] [place] [phone] Chirag Damon MD [address] [facility] [address] [place], [place] [phone] 01/04/2025 12:00 PM CDT Office Visit [facility] Urology at the [facility] [address] [place] [address] Tonia Melton PA [address] [facility] [address] [place], [place] [phone] documented as of this encounter Visit Diagnoses Not on filedocumented in this encounter Care Teams Acoustic Warfare Analyst Relationship Specialty Start Date End Date Mohinder Hadley MD [address] [place] [phone] PCP - General 06/03/07 documented as of this encounter
--- OUTSIDE RECORDS SUMMARY | 2024-10-30 16:47 | XMS_ITS | Encounter Summary ---
Author Organization [facility] Address [address] [place] [address] Care Team Providers Care Multimedia Assistant Name Role Phone Mohinder Hadley MD Primary Care Provider [phone] Encounter Details Date Type Department Care Team (Late Contact Info) Description 12/09/2007 Outpatient Historical [facility] Internal Medicine [address] [address] Mohinder Hadley MD [address] [place] [address] [address] [phone] Social History Tobacco Use Types Packs/Day Years Used Date Smoking Tobacco: Never Assessed Sex and Gender Information Value Date Recorded Sex Assigned at Not on file Legal Sex Male 5:02 AM CLUB LOUNGE ATTENDANT Gender Identity Not on file Sexual Orientation Not on file documented as of this encounter Plan of Treatment Upcoming Encounters Date Type Department Care Team (Late Contact Info) Description 11/09/2024 1:20 PM CLUB LOUNGE ATTENDANT Office Visit [facility] Primary Care [facility] [address] [place] [address] [address] [place] [phone] Mohinder Hadley MD [address] [place] [address] [address] [place] [phone] 11/10/2024 11:00 AM CLUB LOUNGE ATTENDANT Office Visit [facility] Urology at the [facility] [address] [place] [address] Chirag Damon MD [address] [facility] [address] [place] [address] 01/04/2025 12:00 PM CDT Office Visit [facility] Urology at the [facility] Medicine [address] [place] [address] Tonia Melton PA [address] [facility] [address] [place] [address] documented as of this encounter Visit Diagnoses Not on filedocumented in this encounter Care Teams Multimedia Assistant Relationship Specialty Start Date End Date Mohinder Hadley MD [address] [place] [phone] PCP - General 06/03/07 documented as of this encounter
--- OUTSIDE RECORDS SUMMARY | 2024-10-30 16:47 | XMS_ITS | Encounter Summary ---
Author Organization [facility] Address [address] [place] [address] Care Team Providers Care Can Worker Name Role Phone Mohinder Hadley MD Primary Care Provider [phone] Encounter Details Date Type Department Care Team ([facility] Contact Info) Description 02/20/2005 Outpatient Historical [facility] Internal Medicine [address] [address] Mohinder Hadley MD [address] [place] [phone] Social History Tobacco Use Types Packs/Day Years Used Date Smoking Tobacco: Never Assessed Sex and Gender Information Value Date Recorded Sex Assigned at Not on file Legal Sex Male 5:02 AM SAP BI DEVELOPER Gender Identity Not on file Sexual Orientation Not on file documented as of this encounter Last Filed Vital Signs Vital Sign Reading Time Taken Comments Blood Pressure 170/100 02/20/2005 1:30 PM CDT Pulse - - Temperature - - Respiratory Rate - - Oxygen Saturation - - Inhaled Oxygen Concentration - - Weight 90.7 kg (200 lb) 02/20/2005 1:30 PM CDT Height - - Body Mass Index - - documented in this encounter Plan of Treatment Upcoming Encounters Date Type Department Care Team ([facility] Contact Info) Description 11/09/2024 1:20 PM SAP BI DEVELOPER Office Visit [facility] Primary Care [address] [place] [address] Mohinder Hadley MD [address] [place] [address] [address] [place] [address] 11/10/2024 11:00 AM SAP BI DEVELOPER Office Visit [facility] Urology at the [facility] Medicine [address] [place] [phone] Chirag Damon MD [address] [facility] [address] [place], [place] [phone] 01/04/2025 12:00 PM CDT Office Visit [facility] Urology at the [facility] [address] [place] [address] Tonia Melton PA [address] [facility] [address] [place], [place] [phone] documented as of this encounter Visit Diagnoses Not on filedocumented in this encounter Care Teams Can Worker Relationship Specialty Start Date End Date Mohinder Hadley MD [address] [place] [phone] PCP - General 06/03/07 documented as of this encounter
--- OUTSIDE RECORDS SUMMARY | 2024-10-30 16:47 | XMS_ITS | Referral Summary ---
Author Organization [facility] Address [address] [place] [address] Care Team Providers Care Full Time Paramedic Name Role Phone Unavailable Primary Care Provider Unavailabl e Source Comments [facility],non-owned Affiliates and Associated Physician Practices is amultiple site organization consisting of ambulatory clinics and hospital sitesin [place], [place], [place] and [place]. This disclosure is being madepursuant to the Care Everywhere program and may not contain all information available regarding this patient. Last updated 18.[facility] Allergies No known active allergies Medications * Be aware that medications may not be up to date on this document. Alwaysverify current medications with the patient. Medication Sig Dispensed Refills Start Date End Date Status hydrocodone-acetaminop hen (NORCO) 5-325 MG tablet Take 1 Tab by mouth every 6 hours as needed for Pain. 15 Tab 0 06/28/2013 Active Social History Tobacco Use Types Packs/Day Years [...] Mass Index 29.05 06/27/2013 9:22 PM CDT Plan of Treatment Not on file
--- OUTSIDE RECORDS SUMMARY | 2024-10-30 16:47 | XMS_ITS | Encounter Summary ---
Author Organization [facility] Address [address] [place] [address] Care Team Providers Care Residential Lawn Specialist Name Role Phone Unavailable Primary Care Provider Unavailabl e Encounter Details Date Type Department Care Team (Late st Contact Info) Description 04/06/2020 Lab Requisition [facility] [address] [place] [address] Elia Ceja MD Social History Tobacco Use Types Packs/Day Years [...] Diagnosis Comments SARS-COV-2 (COVID-19) IN HOUSE Routine 04/05/2020 3:30 PM CDT documented in this encounter Results * SARS-COV-2 (COVID-19) IN HOUSE (04/05/2020 3:30 PM CDT) COVID-19 PCR Not detected Not detected, Invalid 04/06/2020 7:25 PM CDT [facility] Microbiology SPECIMEN FROM NASOPHARYNGEAL STRUCTURE / Unknown Collection / Unknown 04/05/2020 3:30 PM CDT 04/06/2020 11:59 AM CDT Narrative [facility] - 04/06/2020 7:25 PM CDT This Real Time RT-PCR assay was developed and its performance characteristics determined by [facility]. This test has been authorized by the Food and Drug administration (FDA)under an Emergency Use Authorization (EUA). This test has been validated [...] the authorization is terminated or revoked sooner. Elia Ceja MD LAB - MICROBIOLOGY ORDERABLES [facility] [address] [place], [place] [address], [facility] [phone] documented in this encounter Visit Diagnoses Not on filedocumented in this encounter Additional Health Concerns Infection Onset Date Last Indicated Resolved Time COVID-19 Under Investigation 04/05/2020 04/05/2020 04/06/2020 7:25 PM CDT COVID-19 Under Investigation 04/16/2020 04/16/2020 04/17/2020 8:57 PM CDT documented as of this encounter
--- OUTSIDE RECORDS SUMMARY | 2024-10-30 16:47 | XMS_ITS | Encounter Summary ---
Author Organization [facility] Address [address] [place] [address] Care Team Providers Care Coin Purse Framer Name Role Phone Mohinder Hadley MD Primary Care Provider [phone] Encounter Details Date Type Department Care Team (Late Contact Info) Description 10/13/[address] [facility] Internal Medicine [address] [address] Mohinder Hadley MD [address] [place] [address] [address] [place] [phone] Social History Tobacco Use Types Packs/Day Years Used Date Smoking Tobacco: Never Assessed Sex and Gender Information Value Date Recorded Sex Assigned at Not on file Legal Sex Male 5:02 AM NUCLEAR REACTOR ENGINEER Gender Identity Not on file Sexual Orientation Not on file documented as of this encounter Plan of Treatment Upcoming Encounters Date Type Department Care Team (Late Contact Info) Description 11/09/2024 1:20 PM NUCLEAR REACTOR ENGINEER Office Visit [facility] Primary Care [facility] [address] [place] [address] [address] [place] [address] Mohinder Hadley MD [address] [place] [address] [address] [place] [phone] 11/10/2024 11:00 AM NUCLEAR REACTOR ENGINEER Office Visit [facility] Urology at the [facility] [address] [place] [address] Chirag Damon MD [address] [facility] [address] [place] [address] 01/04/2025 12:00 PM CDT Office Visit [facility] Urology at the [facility] Medicine [address] [place] [address] Tonia Melton PA [address] [facility] [address] [place] [address] documented as of this encounter Visit Diagnoses Not on filedocumented in this encounter Care Teams Coin Purse Framer Relationship Specialty Start Date End Date Mohinder Hadley MD [address] [place] [phone] PCP - General 06/03/07 documented as of this encounter
--- OUTSIDE RECORDS SUMMARY | 2024-10-30 16:47 | XMS_ITS | Encounter Summary ---
Author Organization [facility] Address [address] [place] [address] Care Team Providers Care Management Architect Name Role Phone Mohinder Hadley MD Primary Care Provider Encounter Details Date Type Department Care Team (Late Contact Info) Description 12/09/2007 Outpatient Historical [facility] Internal Medicine [address] [address] Mohinder Hadley MD [address] [place] [address] [address] [place] [phone] Social History Tobacco Use Types Packs/Day Years Used Date Smoking Tobacco: Never Assessed Sex and Gender Information Value Date Recorded Sex Assigned at Not on file Legal Sex Male 5:02 AM DESIGN COORDINATOR Gender Identity Not on file Sexual Orientation Not on file documented as of this encounter Plan of Treatment Upcoming Encounters Date Type Department Care Team (Late Contact Info) Description 11/09/2024 1:20 PM DESIGN COORDINATOR Office Visit [facility] Primary Care [facility] [address] [place] [address] [address] [place] [address] Mohinder Hadley MD [address] [place] [address] [address] [place] [phone] 11/10/2024 11:00 AM DESIGN COORDINATOR Office Visit [facility] Urology at the [facility] [address] [place] [address] Chirag Damon MD [address] [facility] [address] [place] [address] 01/04/2025 12:00 PM CDT Office Visit [facility] Urology at the [facility] Medicine [address] [place] [address] Tonia Melton PA [address] [facility] [address] [place] [address] documented as of this encounter Visit Diagnoses Not on filedocumented in this encounter Care Teams Management Architect Relationship Specialty Start Date End Date Mohinder Hadley MD [address] [place] [phone] PCP - General 06/03/07 documented as of this encounter
--- OUTSIDE RECORDS SUMMARY | 2024-10-30 16:47 | XMS_ITS | Encounter Summary ---
Author Organization [facility] Address [address] [place] [address] Care Team Providers Care Blue Leather Setter Name Role Phone Mohinder Hadley MD Primary Care Provider [phone] Encounter Details Date Type Department Care Team ([facility] Contact Info) Description 08/22/2004 Outpatient Historical [facility] Internal Medicine [address] [address] Mohinder Hadley MD [address] [place] [address] [address] [place] [address] Social History Tobacco Use Types Packs/Day Years Used Date Smoking Tobacco: Never Assessed Sex and Gender Information Value Date Recorded Sex Assigned at Not on file Legal Sex Male 5:02 AM AUTOMATION ENGINEER Gender Identity Not on file Sexual Orientation Not on file documented as of this encounter Last Filed Vital Signs Vital Sign Reading Time Taken Comments Blood Pressure 160/90 08/22/2004 1:30 PM AUTOMATION ENGINEER Pulse - - Temperature - - Respiratory Rate - - Oxygen Saturation - - Inhaled Oxygen Concentration - - Weight 90.7 kg (200 lb) 08/22/2004 1:30 PM AUTOMATION ENGINEER Height - - Body Mass Index - - documented in this encounter Plan of Treatment Upcoming Encounters Date Type Department Care Team ([facility] Contact Info) Description 11/09/2024 1:20 PM AUTOMATION ENGINEER Office Visit [facility] Primary Care [address] [place] [address] Mohinder Hadley MD [address] [place] [address] [address] [place] [address] 11/10/2024 11:00 AM AUTOMATION ENGINEER Office Visit [facility] Urology at the [facility] Medicine [address] [facility] [address] [place] [phone] Chirag Damon MD [address] [facility] [address] [place], [place] [phone] 01/04/2025 12:00 PM CDT Office Visit [facility] Urology at the [facility] [address] [facility] [address] [address] [place] [phone] Tonia Melton PA [address] [phone] documented as of this encounter Visit Diagnoses Not on filedocumented in this encounter Care Teams Blue Leather Setter Relationship Specialty Start Date End Date Mohinder Hadley MD [address] [place] [phone] PCP - General 06/03/07 documented as of this encounter
--- OUTSIDE RECORDS SUMMARY | 2024-10-30 16:47 | XMS_ITS | Encounter Summary ---
Author Organization [facility] Address [address] [place] [address] Care Team Providers Care Slasher Tender Helper Name Role Phone Mohinder Hadley MD Primary Care Provider [phone] Encounter Details Date Type Department Care Team ([facility] Contact Info) Description 03/13/2004 Outpatient Historical [facility] Internal Medicine [address] [address] Mohinder Hadley MD [address] [place] [address] Social History Tobacco Use Types Packs/Day Years Used Date Smoking Tobacco: Never Assessed Sex and Gender Information Value Date Recorded Sex Assigned at Not on file Legal Sex Male 5:02 AM BOTTLE SORTER Gender Identity Not on file Sexual Orientation Not on file documented as of this encounter Last Filed Vital Signs Vital Sign Reading Time Taken Comments Blood Pressure 140/80 03/13/2004 1:15 PM CDT Pulse - - Temperature - - Respiratory Rate - - Oxygen Saturation - - Inhaled Oxygen Concentration - - Weight 90.7 kg (200 lb) 03/13/2004 1:15 PM CDT Height - - Body Mass Index - - documented in this encounter Plan of Treatment Upcoming Encounters Date Type Department Care Team ([facility] Contact Info) Description 11/09/2024 1:20 PM BOTTLE SORTER Office Visit [facility] Primary Care [address] [place] [address] Mohinder Hadley MD [address] [place] [address] [address] [place] [address] 11/10/2024 11:00 AM BOTTLE SORTER Office Visit [facility] Urology at the [facility] Medicine [address] [place] [phone] Chirag Damon MD [address] [facility] [address] [place], [place] [phone] 01/04/2025 12:00 PM CDT Office Visit [facility] Urology at the [facility] [address] [place] [address] Tonia Melton PA [address] [facility] [address] [place], [place] [phone] documented as of this encounter Visit Diagnoses Not on filedocumented in this encounter Care Teams Slasher Tender Helper Relationship Specialty Start Date End Date Mohinder Hadley MD [address] [place] [phone] PCP - General 06/03/07 documented as of this encounter
--- OUTSIDE RECORDS SUMMARY | 2024-10-30 16:47 | XMS_ITS | Encounter Summary ---
Author Organization [facility] Address [address] [place] [address] Care Team Providers Care Poundmaster Name Role Phone Mohinder Hadley MD Primary Care Provider [phone] Encounter Details Date Type Department Care Team (Late Contact Info) Description 12/09/2007 Outpatient Historical [facility] Internal Medicine [address] [address] Mohinder Hadley MD [address] [place] [address] [address] [place] [phone] Social History Tobacco Use Types Packs/Day Years Used Date Smoking Tobacco: Never Assessed Sex and Gender Information Value Date Recorded Sex Assigned at Not on file Legal Sex Male 5:02 AM CALIBRATION ENGINEER Gender Identity Not on file Sexual Orientation Not on file documented as of this encounter Plan of Treatment Upcoming Encounters Date Type Department Care Team (Late Contact Info) Description 11/09/2024 1:20 PM CALIBRATION ENGINEER Office Visit [facility] Primary Care [facility] [address] [place] [address] [address] [place] [phone] Mohinder Hadley MD [address] [place] [address] [address] [place] [phone] 11/10/2024 11:00 AM CALIBRATION ENGINEER Office Visit [facility] Urology at the [facility] [address] [place] [address] Chirag Damon MD [address] [facility] [address] [place] [address] 01/04/2025 12:00 PM CDT Office Visit [facility] Urology at the [facility] Medicine [address] [place] [address] Tonia Melton PA [address] [facility] [address] [place] [address] documented as of this encounter Visit Diagnoses Not on filedocumented in this encounter Care Teams Poundmaster Relationship Specialty Start Date End Date Mohinder aHdley MD [address] [place] [phone] PCP - General 06/03/07 documented as of this encounter
--- OUTSIDE RECORDS SUMMARY | 2024-10-30 16:47 | XMS_ITS | Encounter Summary ---
Author Organization [facility] Address [address] [place] [address] Care Team Providers Care Steward/Stewardess Deck Name Role Phone Mohinder Hadley MD Primary Care Provider [phone] Encounter Details Date Type Department Care Team (Late Contact Info) Description 12/09/2007 Outpatient Historical [facility] Internal Medicine [address] [address] Mohinder Hadley MD [address] [place] [address] [address] [place] [phone] Social History Tobacco Use Types Packs/Day Years Used Date Smoking Tobacco: Never Assessed Sex and Gender Information Value Date Recorded Sex Assigned at Not on file Legal Sex Male 5:02 AM OBSERVER ELECTRICAL PROSPECTING Gender Identity Not on file Sexual Orientation Not on file documented as of this encounter Plan of Treatment Upcoming Encounters Date Type Department Care Team (Late Contact Info) Description 11/09/2024 1:20 PM OBSERVER ELECTRICAL PROSPECTING Office Visit [facility] Primary Care [facility] [address] [place] [address] [address] [place] [phone] Mohinder Hadley MD [address] [place] [address] [address] [place] [phone] 11/10/2024 11:00 AM OBSERVER ELECTRICAL PROSPECTING Office Visit [facility] Urology at the [facility] [address] [place] [address] Chirag Damon MD [address] [facility] [address] [place] [address] 01/04/2025 12:00 PM CDT Office Visit [facility] Urology at the [facility] Medicine [address] [place] [address] Tonia Melton PA [address] [facility] [address] [place] [address] documented as of this encounter Visit Diagnoses Not on filedocumented in this encounter Care Teams Steward/Stewardess Deck Relationship Specialty Start Date End Date Mohinder Hadley MD [address] [place] [phone] PCP - General 06/03/07 documented as of this encounter
--- OUTSIDE RECORDS SUMMARY | 2024-10-30 16:47 | XMS_ITS | Encounter Summary ---
Author Organization [facility] Address [address] [place] [address] Care Team Providers Care Vending Machine Technician Name Role Phone Mohinder Hadley MD Primary Care Provider [phone] Encounter Details Date Type Department Care Team ([facility] Contact Info) Description 05/22/2004 Outpatient Historical [facility] Internal Medicine [address] [address] Mohinder Hadley MD [address] [place] [address] Social History Tobacco Use Types Packs/Day Years Used Date Smoking Tobacco: Never Assessed Sex and Gender Information Value Date Recorded Sex Assigned at Not on file Legal Sex Male 5:02 AM COAL SHOOTER Gender Identity Not on file Sexual Orientation Not on file documented as of this encounter Last Filed Vital Signs Vital Sign Reading Time Taken Comments Blood Pressure 150/92 05/22/2004 11:30 AM CDT Pulse - - Temperature - - Respiratory Rate - - Oxygen Saturation - - Inhaled Oxygen Concentration - - Weight 90.3 kg (199 lb) 05/22/2004 11:30 AM CDT Height - - Body Mass Index - - documented in this encounter Plan of Treatment Upcoming Encounters Date Type Department Care Team ([facility] Contact Info) Description 11/09/2024 1:20 PM COAL SHOOTER Office Visit [facility] Primary Care [address] [place] [address] Mohinder Hadley MD [address] [place] [address] [address] [place] [address] 11/10/2024 11:00 AM COAL SHOOTER Office Visit [facility] Urology at the [facility] Medicine [address] [place] [phone] Chirag Damon MD [address] [facility] [address] [place], [place] [phone] 01/04/2025 12:00 PM CDT Office Visit [facility] Urology at the [facility] [address] [place] [address] Tonia Melton PA [address] [facility] [address] [place], [place] [phone] documented as of this encounter Visit Diagnoses Not on filedocumented in this encounter Care Teams Vending Machine Technician Relationship Specialty Start Date End Date Mohinder Hadley MD [address] [place] [phone] PCP - General 06/03/07 documented as of this encounter
--- OUTSIDE RECORDS SUMMARY | 2024-10-30 16:47 | XMS_ITS | Encounter Summary ---
Author Organization [facility] Address [address] [place] [address] Care Team Providers Care Style Advisor Name Role Phone Mohinder Hadley MD Primary Care Provider [phone] Encounter Details Date Type Department Care Team (Late st Contact Info) Description 08/20/2007 Orders Only [facility] Internal Medicine [address] [address] Mohinder Hadley MD [address] [place] [phone] Social History Tobacco Use Types Packs/Day Years Used Date Smoking Tobacco: Never Assessed Sex and Gender Information Value Date Recorded Sex Assigned at Not on file Legal Sex Male 5:02 AM SIDE PANEL HANGER Gender Identity Not on file Sexual Orientation Not on file documented as of this encounter Progress Notes * Mohinder Hadley MD - 02/19/2008 5:58 PM CDT TIME:01:29 pm PATIENT`S HOME PHONE: PATIENT`S WORK PHONE: PATIENT`S INSURANCE: [facility] WHO TOOK THE CALL: Airam Keenan J GENERAL INFORMATION LAST VISIT: 07/04/07 WHO CALLED: Pharmacy called. PHARMACY NUMBER: [phone] SECTION 1: REQUESTED ACTION sumit 08/20/07 at 01:39 pm: MEDICATION REQUEST: MEDICATION REQUEST: Patient requests a refill. cymbalta 60mg #30 LF 05/25/07 DOCTOR`S RESPONSE: adrianna 08/20/07 at 01:44 pm MEDICATIONS: CYMBALTA ORAL CAPSULE ENTERIC COATED 60 MG, 1 Every Day, 60 Dispensed, 3 Fills, status: CONTINUED, 08/20/2007. FINAL ACTION: trey 08/20/07 at 01:57 pm Called pharmacy at 08/20/07 at 01:57 pm. Electronically Signed by: Nanci Barnett on Monday, August 20, 2007 documented in this encounter Plan of Treatment Upcoming Encounters Date Type Department Care Team (Late st Contact Info) Description 11/09/2024 1:20 PM SIDE PANEL HANGER Office Visit [facility] Primary Care [place] [phone] Mohinder Hadley MD [address] [place] [address] 11/10/2024 11:00 AM SIDE PANEL HANGER Office Visit [facility] Urology at the [facility] Medicine [address] [place] [phone] Chirag Damon MD [address] [address] 01/04/2025 12:00 PM CDT Office Visit [facility] Urology at the [facility] Medicine [address] [facility] [address] [address] [facility] [address] [place] [phone] Tonia Melton PA [address] [address] documented as of this encounter Visit Diagnoses Not on filedocumented in this encounter Care Teams Style Advisor Relationship Specialty Start Date End Date Mohinder Hadley MD [address] [place] [phone] PCP - General 06/03/07 documented as of this encounter
--- OUTSIDE RECORDS SUMMARY | 2024-10-30 16:47 | XMS_ITS | Encounter Summary ---
Author Organization [facility] Address [address] [place] [address] Care Team Providers Care Facility Rehab Director Name Role Phone Mohinder Hadley MD Primary Care Provider [phone] Encounter Details Date Type Department Care Team (Late st Contact Info) Description 10/31/2005 Orders Only [facility] [address] [address] Mohinder Hadley MD [address] [place] [address] Social History Tobacco Use Types Packs/Day Years Used Date Smoking Tobacco: Never Assessed Sex and Gender Information Value Date Recorded Sex Assigned at Not on file Legal Sex Male 5:02 AM PACK OUT OPERATOR Gender Identity Not on file Sexual Orientation Not on file documented as of this encounter Progress Notes * Mohinder Hadley MD - 07/15/2008 12:52 PM CDT TIME:11:29 am PATIENT`S HOME PHONE: PATIENT`S WORK PHONE: PATIENT`S INSURANCE: [facility] WHO TOOK THE CALL: Brittnee Nguyen S GENERAL INFORMATION WHO CALLED: Pharmacy called. [phone] SECTION 1: REQUESTED ACTION maged 10/31/05 at 11:30 am: MEDICATION REQUEST: MEDICATION REQUEST: Patient requests a refill. Celebrex 200mg 2x a day last in Jul 2005 DOCTOR`S RESPONSE: adrianna 10/31/05 at 11:38 am MEDICATIONS: CELEBREX ORAL CAPSULE CONVENTIONAL 200 MG, 1 Every Day, 90 Dispensed, status: NEW PRESCRIPTION, 10/31/2005. can only take once daily FINAL ACTION: browss 10/31/05 at 12:14 pm Called pharmacy at 10/31/05 at 12:14 pm. documented in this encounter Plan of Treatment Upcoming Encounters Date Type Department Care Team (Late st Contact Info) Description 11/09/2024 1:20 PM PACK OUT OPERATOR Office Visit [facility] [address] [place] [address] Mohinder Hadley MD [address] [facility] [address] [place] [phone] 11/10/2024 11:00 AM PACK OUT OPERATOR Office Visit [facility] the [facility] Medicine [address] [place] [address] Chirag Damon MD [address] [address] 01/04/2025 12:00 PM CDT Office Visit [facility] Medicine [address] [place] [address] Tonia Melton PA [address] [address] documented as of this encounter Visit Diagnoses Not on filedocumented in this encounter Care Teams Facility Rehab Director Relationship Specialty Start Date End Date Mohinder Hadley MD [address] [facility] [address] [place] [phone] PCP - General 06/03/07 documented as of this encounter
--- OUTSIDE RECORDS SUMMARY | 2024-10-30 16:47 | XMS_ITS | Clinical Summary ---
Author Organization [facility] Address [address] [place] [address] Care Team Providers Care Real Estate Subagent Name Role Phone Mohinder Hadley MD Primary Care Provider + Allergies No known active allergies Medications ALPRAZolam [...] 10/24/2021 Assessment & Plan (08/24/2022 11:51 AM FULL SERVICE SUPERVISOR): Hearing test at [facility] - consider imaging if decreased from previous hearing testing Flonase 2 sprays into each nostril while looking down over the sink, do not sniff in or blow nose after use for at least 30 minutes Chronic congestion of paranasal sinus 08/24/2022 Assessment & Plan (08/24/2022 11:51 AM FULL SERVICE SUPERVISOR): Hearing test at [facility] - consider imaging if decreased from previous hearing testing Flonase 2 sprays into each nostril while looking down over the sink, do not sniff in or blow nose after use for at least 30 minutes Bronchiectasis 05/19/2022 Thickening of wall of gallbladder 10/25/2020 Right ureteral stone 04/05/2020 Old AR (myocardial infarction) 12/29/2019 Coronary artery disease invo lving [place] coronary artery of [place] heart without angina pectoris 09/23/2019 Cardiomyopathy, ischemic 09/23/2019 Essential hypertension 09/23/2019 Mixed hyperlipidemia 09/23/2019 Screen for colon cancer 09/08/2019 Overview (09/08/2019): Added automatically from request for surgery [id number] Prediabetes 08/20/2019 Dupuytren contracture 02/27/2018 Supraspinatus tendon [...] Umbilical hernia 02/22/2004 Osteoarthritis 02/22/2004 Esophagitis 02/22/2004 Encounters Date Type Department Care Team Description 09/17/2024 1:20 PM FULL SERVICE SUPERVISOR [facility] [address] [facility] Medical Office Building [address] [place] [address] Nasra Jacobsen NP Tinnitus of both ears (Primary Dx); Bilateral hearing loss, unspecified hearing loss type from Last 3 Months Surgical History Surgery Date Site/Laterality Comments CARDIAC CATHETERIZATION HERNIA REPAIR inguinal and umbilical KNEE ARTHROSCOPY Right BACK SURGERY decompression COLONOSCOPY 01/28/2013 SINUS SURGERY Medical History Medical History Date Comments Hx Other Medical R knee 1996 Hx Other Medical Back 2002 Hx Other Medical Hernia 2015 Hx Other Medical Stent 2015; Com ments: JNS 09/12/2016 - H/O heart surgery 09/2017 Diverticulosis Myocardial infarction (HCC) Hypertension Coronary artery disease Hyperlipidemia Colon polyp Depression Family History Medical History Relation Name Comments Heart disease Other 1 Family history of Heart disease; Hypertension Other 2 Family history of Hypertension; Stroke Other 3 Family history of Stroke; Other Other 4 Family history of bleeding problems; Relation Name Status Comments Other 1 Other 2 Other 3 Other 4 Social History Tobacco Use Types Packs/Day Years [...] on file Legal Sex Male 7:10 PM FULL SERVICE SUPERVISOR Gender Identity Not on file Sexual Orientation Not on file Obstetrics History Last Filed Vital Signs Vital Sign Reading Time Taken Comments Blood Pressure 197/105 09/17/2024 1:28 PM FULL SERVICE SUPERVISOR Pulse 80 09/17/2024 1:28 PM FULL SERVICE SUPERVISOR Temperature 36.6 ??C (97.9 ??F) 09/20/2023 12:[address] Respiratory Rate 16 09/20/2023 12:37 PM FULL SERVICE SUPERVISOR Oxygen Saturation 94% 09/20/2023 6:24 PM FULL SERVICE SUPERVISOR Inhaled Oxygen Concentration - - Weight 97.1 kg (214 lb) 09/17/2024 1:28 PM FULL SERVICE SUPERVISOR Height 167.6 cm (5' 6 ) 09/17/2024 1:28 PM FULL SERVICE SUPERVISOR Body Mass Index 34.54 09/17/2024 1:28 PM FULL SERVICE SUPERVISOR Plan of Treatment Health Maintenance Due Date Last Done Comments Depression Screening 1955 Fall Risk Assessment 1955 Hepatitis C Screening 1955 Prostate Cancer Screening-PSA 1955 Hepatitis B Screening 1972 Zoster Vaccine (2 of 3) 07/07/2015 05/12/2015 Well Visit 65+ 2019 Influenza Vaccine (#1) 2024 9, 07/30/2017, 07/17/2016 Colon Cancer Screening-Colonoscopy 10/27/20292019, 01/28/2013 DTaP/Tdap/Td Vaccine (3 - Td or Tdap) 12/02/2033 12/02/2023, 07/29/2012, 09/11/2002 Colon Cancer Screening-CT Colonography Discontinued 10/27/2019, 01/28/2013 Colon Cancer Screening-DNA Stool Discontinued 10/27/19 20, 01/28/2013 Colon Cancer Screening-FIT Discontinued 10/27/2019, Colon Cancer Screening-Sigmoidoscopy Discontinued 10/08, 01/28/2013 Pneumococcal vaccine 65+ Completed 022, 12/21/2019, 03/26/2017 Medical Devices Implanted Type Area Assistant Editor Device Identifier Shelf Expiration Date Model / Serial / Lot Stent- 5 Implanted:Qty: 1 on 05/23/2015 by Roxanna Thorne MD Stent Heart [employer] PROMUS PREMIER / [id number] / [id number] Stent-09/19/20 17 Implanted:Qty: 1 on 09/19/2017 by Min Alexander MD Stent Heart [employer] / / [id number] Procedures Procedure Name Priority Date/Time Associated Diagnosis Comments COLONOSCOPY 10/27/2019 9:56 AM FULL SERVICE SUPERVISOR from Last 3 Months or Most Recently Relevant to Health Maintenance Results * COLONOSCOPY (10/27/2019 9:56 AM FULL SERVICE SUPERVISOR) Anatomical Region Laterality Modality Other Narrative Procedure Note Jovany Miranda MD - 10/27/2019 9:[address] [facility] Patient Name: Emmanuel Bowman Procedure Date: 10/27/2019 9:56 AM Date of : 1955 Admit Type: Outpatient Age: 63 Gender: Male Attending MD: Jovany Miranda M.D. Room: [facility] ENDOSCOPY ROOM 1 Note Status: Finalized [...] passed under direct vision. The PediatricColonoscope [id number]-[id number] was introduced through the anusand advanced to [...] 9:56 AM Procedure Code(s): --- Professional --- 10191, Colonoscopy, flexible; with biopsy, single or multiple Diagnosis Code(s): --- Professional --- Z12.11, Encounter for screening for malignant neoplasm of colon K64.8, Other hemorrhoids D12.4, Benign neoplasm of descending colon K57.30, Diverticulosis of large intestine without perforation orabscess without bleeding CPT copyright 2017 [employer] [employer]. All rights reserved. The codes documented in this report are preliminary and upon hot dog vendor reviewmay be revised to meet current compliance requirements. Recognized by the [place] [employer] for promoting quality in endoscopy Jovany Miranda MD ENDOSCOPY PROCEDURES Final Result from Last 3 Months or Most Recently Relevant to Health Maintenance [facility] MEDICARE [facility] Address: [address] [place] [address] [facility] MEDICARE Advance Directives For more information, please contact: [phone] * Full Code (Latest Code Status on File) Date Activated Date Inactivated Comments 10/27/2019 10:28 AM 10/27/2019 4:20 PM * Full Code Date Activated Date Inactivated Comments 10/27/2019 10:28 AM 10/27/2019 10:28 AM Care Teams Real Estate Subagent Relationship Specialty Start Date End Date Mohinder Hadley MD [address] [facility] [place] [address] PCP - General Internal Medicine 11/06/17
--- OUTSIDE RECORDS SUMMARY | 2024-10-30 16:47 | XMS_ITS | Clinical Summary ---
Author Organization [facility] Address [address] [facility] [place] [address] Care Team Providers Care Hydraulic Punch Press Operator Name Role Phone Unavailable Primary Care Provider Unavailabl e Source Comments [facility],non-owned Affiliates and Associated Physician Practices is amultiple site organization consisting of ambulatory clinics and hospital sitesin [place], [place], [place] and [place]. This disclosure is being madepursuant to the Care Everywhere program and may not contain all information available regarding this patient. Last updated 18.[facility] [employer] Allergies No known active allergies Medications * [...] 06/27/2013 9:22 PM CDT Plan of Treatment Health Maintenance Due Date Last Done Comments CAREY (AGES 45-75) - COL ON CA SCREENING 1955 COLON MONITORING 1955 COLONOSCOPY - COLON CA SCREENING 1954 CT COLONOGRAPHY - COLON CA SCREENING 1955 Colorectal Cancer Screening 1954 FIT - COLON CA SCREENING 1954 FLEX SIG - COLON CA SCREENING 1954 LIPID TESTING 1954 HEPATITIS C SCREENING 11/21/1972 DTAP/TDAP/TD VACCINES (1 - Tdap) 1973 PNEUMOCOCCAL VACCINE 50+ (1 of 1 - PCV) 2004 ZOSTER VACCINE (1 of 2) 2004 COVID-19 VACCINE (1 - 2023-2 5 season) 2024 INFLUENZA VACCINE (#1) 2024 DEPRESSION SCREENING 10/07/2024 Respiratory Syncytial Virus (RSV) Vaccine Pt: or over 60 yrs (1 - 1-dose 75+ series) 2029 HEPATITIS B VACCINE Aged Out No longe r eligible based on patient's age to complete this topic HIB VACCINE Aged Out No longer eligi ble based on patient's age to complete this topic HPV VACCINE Aged Out No longer eligi ble based on patient's age to complete this topic MENINGOCOCCAL (Group B) VACCINE Aged Out No longer eligible based on patient's age to complete this topic MENINGOCOCCAL VACCINE Aged Out No cofmort silvestre eligible based on patient's age to complete this topic Emmanuel Bowman Personal/Family Self 1955 ([place]) [address] [place] [address]
--- OUTSIDE RECORDS SUMMARY | 2024-10-30 16:47 | XMS_ITS | Encounter Summary ---
Author Organization [facility] Address [address] [place] [address] Care Team Providers Care Banquet Captain Name Role Phone Mohinder Hadley MD Primary Care Provider [phone] Encounter Details Date Type Department Care Team (Late Contact Info) Description 01/24/2007 Orders Only [facility] Internal Medicine [address] [address] Mohinder Hadley MD [address] [place] [address] [address] [phone] Social History Tobacco Use Types Packs/Day Years Used Date Smoking Tobacco: Never Assessed Sex and Gender Information Value Date Recorded Sex Assigned at Not on file Legal Sex Male 5:02 AM WET SANDER Gender Identity Not on file Sexual Orientation Not on file documented as of this encounter Plan of Treatment Upcoming Encounters Date Type Department Care Team (Late Contact Info) Description 11/09/2024 1:20 PM WET SANDER Office Visit [facility] [address] [place] [address] [address] [place] [phone] Mohinder Hadley MD [address] [place] [address] [address] [place] [address] 11/10/2024 11:00 AM WET SANDER Office Visit [facility] at the [facility] [address] [place] [address] Chirag Damon MD [address] [facility] [address] [place] [address] 01/04/2025 12:00 PM CDT Office Visit [facility] at the [facility] [address] [place] [address] Tonia Melton PA [address] [facility] [address] [place] [address] documented as of this encounter Visit Diagnoses Not on filedocumented in this encounter Care Teams Banquet Captain Relationship Specialty Start Date End Date Mohinder Hadley MD [address] [place] [phone] PCP - General 06/03/07 documented as of this encounter
--- OUTSIDE RECORDS SUMMARY | 2024-10-30 16:47 | XMS_ITS | Encounter Summary ---
Author Organization [facility] Address [address] [place] [address] Care Team Providers Care Composite Laminator Name Role Phone Mohinder Hadley MD Primary Care Provider [phone] Encounter Details Date Type Department Care Team (Late st Contact Info) Description 01/10/2005 Outpatient Historical [facility] [address] [place] [address]. [place], [place] [phone] Davis Frank MD Social History Tobacco Use Types Packs/Day Years Used Date Smoking Tobacco: Never Assessed Sex and Gender Information Value Date Recorded Sex Assigned at Not on file Legal Sex Male 5:02 AM SPANISH TUTOR Gender Identity Not on file Sexual Orientation Not on file documented as of this encounter Plan of Treatment Upcoming Encounters Date Type Department Care Team (Late Contact Info) Description 11/09/2024 1:20 PM SPANISH TUTOR Office Visit [facility] [address] [place] [phone] Mohinder Hadley MD [address] [place] [address] [address] [place] [phone] 11/10/2024 11:00 AM SPANISH TUTOR Office Visit [facility] at the [facility] Medicine [address] [facility] [address] [place] [address] Chirag Damon MD [address] [facility] [address] [place], [place] [phone] 01/04/2025 12:00 PM CDT Office Visit [facility] at the [facility] Medicine [address] [place] [address] Tonia Melton PA [address] [facility] [address] [place] [address] documented as of this encounter Visit Diagnoses Not on filedocumented in this encounter Care Teams Composite Laminator Relationship Specialty Start Date End Date Mohinder Hadley MD [address] [place] [phone] PCP - General 06/03/07 documented as of this encounter
--- OUTSIDE RECORDS SUMMARY | 2024-10-30 16:47 | XMS_ITS | Encounter Summary ---
Author Organization [facility] Address [address] [place] [address] Care Team Providers Care Speedboat Driver Name Role Phone Mohinder Hadley MD Primary Care Provider Encounter Details Date Type Department Care Team (Late st Contact Info) Description 01/21/2006 Orders Only [facility] Internal Medicine [address] [address] Mohinder Hadley MD [address] [place] [address] Social History Tobacco Use Types Packs/Day Years Used Date Smoking Tobacco: Never Assessed Sex and Gender Information Value Date Recorded Sex Assigned at Not on file Legal Sex Male 5:02 AM MOBILE EQUIPMENT OPERATOR Gender Identity Not on file Sexual Orientation Not on file documented as of this encounter Progress Notes * Mohinder Hadley MD - 07/16/2008 1:32 AM CDT WEIGHT: 200lbs BLOOD PRESSURE: 130/80 Right Arm Sitting NURSE NAME: Yazmin SappMaría CHIEF COMPLAINT Patient here for follow up hyperlipidemia, hypertension. HISTORY: HISTORY: 272.4-HYPERLIPIDEMIA The patient is tolerating the medications. 401.9-HYPERTENSION, UNSPECIFIED The patient is tolerating the medication. 715.90-OSTEOARTHROSIS UNSPECIFIED The patient has joint pain and stiffness.chronic pain, diffuse PHYSICAL EXAMINATION: CONSTITUTIONAL: GENERAL APPEARANCE: Healthy appearing [...] rhythm. No murmurs, rubs, or gallops. ARTERIAL: Aortic pulses of normal amplitude with no bruits. EDEMA/VARICOSITIES OF EXTREMITIES: No edema or varicosities. GASTROINTESTINAL: ABDOMEN: Soft, non-tender, without masses. Bowel sounds active. LIVER/SPLEEN/KIDNEY: No hepatosplenomegaly, tenderness or nodularity. Kidneys not palpable. ASSESSMENT/PLAN: 272.4-HYPERLIPIDEMIA inc dose MEDICATIONS: LOVASTATIN ORAL TABLET 40 MG, 1 Every Day, 90 Dispensed, 3 Fills, 90 Duration/Days Supply, status: NEW PRESCRIPTION, 01/21/2006. 311-DEPRESSION contmed 401.9-HYPERTENSION, UNSPECIFIED cont med LAB ORDERS: 3mo Order number: [id number] Test Ordered: COMPREHENSIVE METABOLIC PANEL W/ GLOMERULAR FILTRATION RATE, ESTIMATED (EGFR) 85811 Order number: [id number] Test Ordered: LIPID PANEL 7600 715.90-OSTEOARTHROSIS UNSPECIFIED try new med, discussed MEDICATIONS: LYRICA ORAL CAPSULE CONVENTIONAL 50 MG, 1 Three Times A Day, 90 Dispensed, status: NEW PRESCRIPTION, 01/21/2006. 780.52-INSOMNIA offmed RETURN VISIT : Patient instructed to return in 3 months. Electronically Signed by: Mohinder Hadley MD on Saturday, January 21, 2006 documented in this encounter Plan of Treatment Upcoming Encounters Date Type Department Care Team (Late st Contact Info) Description 11/09/2024 1:20 PM MOBILE EQUIPMENT OPERATOR Office Visit [facility] Primary Care [address] [place] [address] Mohinder Hadley MD [address] [place] [address] [address] [place] [phone] 11/10/2024 11:00 AM MOBILE EQUIPMENT OPERATOR Office Visit [facility] Urology at the [facility] [address] [facility] [address] [place] [address] Chirag Damon MD [address] [facility] [address] [place] [address] 01/04/2025 12:00 PM CDT Office Visit [facility] Urology at the [facility] [address] [place] [address] Tonia Melton PA [address] [facility] [address] [place] [address] documented as of this encounter Visit Diagnoses Not on filedocumented in this encounter Care Teams Speedboat Driver Relationship Specialty Start Date End Date Mohinder Hadley MD [address] [place] [address] [place] [address] PCP - General 06/03/07 documented as of this encounter
--- OUTSIDE RECORDS SUMMARY | 2024-10-30 16:47 | XMS_ITS | Encounter Summary ---
Author Organization [facility] Address [address] [place] [address] Care Team Providers Care Industrial Insulator Name Role Phone Mohinder Hadley MD Primary Care Provider Encounter Details Date Type Department Care Team (Late Contact Info) Description 08/21/2007 Outpatient Historical [facility] Internal Medicine [address] [address] Mohinder Hadley MD [address] [place] [address] [address] [phone] Social History Tobacco Use Types Packs/Day Years Used Date Smoking Tobacco: Never Assessed Sex and Gender Information Value Date Recorded Sex Assigned at Not on file Legal Sex Male 5:02 AM INTERNET RESEARCHER Gender Identity Not on file Sexual Orientation Not on file documented as of this encounter Plan of Treatment Upcoming Encounters Date Type Department Care Team (Late Contact Info) Description 11/09/2024 1:20 PM INTERNET RESEARCHER Office Visit [facility] Primary Care [facility] [address] [place] [address] [address] [place] [phone] Mohinder Hadley MD [address] [place] [address] [address] [place] [phone] 11/10/2024 11:00 AM INTERNET RESEARCHER Office Visit [facility] Urology at the [facility] [address] [place] [address] Chirag Damon MD [address] [facility] [address] [address] 01/04/2025 12:00 PM CDT Office Visit [facility] Urology at the [facility] Medicine [address] [facility] [address] [facility] [address] [place] [address] Tonia Melton PA [address] [facility] [phone] documented as of this encounter Visit Diagnoses Not on filedocumented in this encounter Care Teams Industrial Insulator Relationship Specialty Start Date End Date Mohinder Hadley MD [address] [place] [phone] PCP - General 06/03/07 documented as of this encounter
--- OUTSIDE RECORDS SUMMARY | 2024-10-30 16:47 | XMS_ITS | Encounter Summary ---
Author Organization [facility] Address [address] [place] [address] Care Team Providers Care Inspector Outside Steam Distribution Name Role Phone Mohinder Hadley MD Primary Care Provider [phone] Encounter Details Date Type Department Care Team (Late st Contact Info) Description 08/21/2007 Orders Only [facility] Internal Medicine [address] [address] Mohinder Hadley MD [address] [place] [address] Social History Tobacco Use Types Packs/Day Years Used Date Smoking Tobacco: Never Assessed Sex and Gender Information Value Date Recorded Sex Assigned at Not on file Legal Sex Male 5:02 AM GRADUATING MACHINE OPERATOR Gender Identity Not on file Sexual Orientation Not on file documented as of this encounter Progress Notes * Mohinder Hadley MD - 02/19/2008 6:41 PM CDT BLOOD PRESSURE: 130/80 Right Arm Sitting TEMPERATURE: 35.83??c Oral NURSE NAME: Yazmin Spap María CHIEF COMPLAINT Patient complains of dizziness, nausea. HISTORY: HISTORY: 311-DEPRESSION No complications noted from the medication presently being used. 401.9-HYPERTENSION, UNSPECIFIED The patient is tolerating the medication. 461.9-SINUSITIS UNSPECIFIED sinus, n, v 2d, ear pain inc drainage 564.00-CONSTIPATION worse recently pt req rx 780.4-VERTIGO/DIZZINESS The vertigo has worsened. ROS: CARDIAC: No chest pain, palpitations, orthopnea, dyspnea on exertion, or paroxysmal nocturnal dyspnea. RESPIRATORY: No dyspnea, cough, hemoptysis or wheezing. : No dysuria or hematuria. PAST MEDICAL HISTORY: reviewed SOCIAL HISTORY: TOBACCO [...] hepatosplenomegaly, tenderness or nodularity. Kidneys not palpable. NEUROLOGIC: CRANIAL NERVES: household refrigerator mechanic II-XII grossly intact. ASSESSMENT/PLAN: 461.9-SINUSITIS UNSPECIFIED rx MEDICATIONS: LEVAQUIN ORAL TABLET 500 MG, 1 Every Day, 10 Dispensed, status: NEW PRESCRIPTION, 08/21/2007. MEDROL (KERLINE) ORAL TABLET 4 MG, DIRECTED, 1 Dispensed, status: NEW PRESCRIPTION, 08/21/2007. 564.00-CONSTIPATION ok rx MEDICATIONS: MIRALAX ORAL POWDER, DIRECTED, 30 Duration/Days Supply, status: NEW PRESCRIPTION, 08/21/2007. 715.90-OSTEOARTHROSIS UNSPECIFIED cont pain mgt discussed 780.4-VERTIGO/DIZZINESS 10 mg compazine given IM MEDICATIONS: MECLIZINE HCL ORAL CAPSULE CONVENTIONAL 25 MG, 1 Two Times A Day, 30 Dispensed, 1 Fills, status: CONTINUED, 08/21/2007. Patient Education: Risks, benefits, and possible side effects of medication(s) were reviewed with the patient. RETURN VISIT : Instructed to call if not improving.note for off work tomorrow Electronically Signed by: Mohinder Hadley MD on August documented in this encounter Plan of Treatment Upcoming Encounters Date Type Department Care Team (Late st Contact Info) Description 11/09/2024 1:20 PM GRADUATING MACHINE OPERATOR Office Visit [facility] Primary Care [facility] [address] [place] [address] [address] [place] [phone] Mohinder Hadley MD [address] [place] [address] [address] [place] [phone] 11/10/2024 11:00 AM GRADUATING MACHINE OPERATOR Office Visit [facility] Urology at the [facility] Medicine [address] [place] [address] Chirag Damon MD [address] [facility] [address] [place] [address] 01/04/2025 12:00 PM CDT Office Visit [facility] Urology at the [facility] [address] [place] [address] Tonia Melton PA [address] [facility] [address] [place] [address] documented as of this encounter Visit Diagnoses Not on filedocumented in this encounter Care Teams Inspector Outside Steam Distribution Relationship Specialty Start Date End Date Mohinder Hadley MD [address] [place] [address] [address] [place] [phone] PCP - General 06/03/07 documented as of this encounter
--- OUTSIDE RECORDS SUMMARY | 2024-10-30 16:48 | XMS_ITS ---
Author Organization [facility] Address [address] [place] [address] Care Team Providers Care Business Initiatives Manager Name Role Phone Mohinder Hadley MD Primary Care Provider [phone] Active Problems Patient Care Coordination No te Formatting of this note migh t be different from the original. IOCP Declined, Re Sandoval, RN - Charge Account Authorizer [id number] 11/25/23 39723 11/20/22 Problem Noted Date Diagnosed Date Stress incontinence 08/07/2024 Hepatic steatosis 05/20/2023 Gynecomastia 05/20/2023 Gastroesophageal reflux disease 05/20/2023 Prostate cancer 04/18/2023 Thickening of wall of gallbladder 10/25/2020 Atherosclerosis of [place] coronary artery of [place] heart 12/29/2019 [place] (myocardial infarction) 12/29/2019 Prediabetes 08/20/2019 Other hyperlipidemia 01/12/2019 Dupuytren contracture 02/27/2018 Atherosclerosis of aorta 05/24/2017 Overview (09/26/2017): LHC 09/19/17 LAD 100%, RCA 100%, LCA 30% EF 50-60% Supraspinatus tendon tear 11/29/2016 Overview (11/29/2016): 11/23- MRI Left shoulder Constipation 07/17/2016 Elevated PSA 04/18/2015 Overview (04/18/2015): PSA list-5.41 in 10/17, 5.94 in 03/18, 6.57 in 08/19, 7.0 in 09/19 History prostate biopsy in October [address] Marcos. Pathology with inflammation, atrophy but no cancer. History prior biopsy years ago reportedly benign. Hypothyroidism 03/31/2014 Sleep apnea 07/31/2006 Unspecified disorder of prostate 10/22/2005 Overview (03/15/2008): PSA 3, 12/2006 Calculus of kidney 05/28/2005 Insomnia, unspecified 05/28/2005 Impotence of organic origin 06/27/2004 Moderate major depression 05/22/2004 Osteoarthritis 02/22/2004 Esophagitis 02/22/2004 Umbilical hernia without mention of obstruction or gangrene 02/22/2004 Essential hypertension 02/22/2004 Current Treatment and Therapy Plans No current plan information found. Past Treatment and Therapy Plans No past plan information found. 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
--- OUTSIDE RECORDS SUMMARY | 2024-10-30 16:48 | XMS_ITS | Encounter Summary ---
Author Organization [facility] Address [address] [place] [address] Care Team Providers Care English Composition Teacher Name Role Phone Charlotte Felipe MD Primary Care Provider [phone] Encounter Details Date Type Department Care Team (Late st Contact Info) Description 04/22/2006 Orders Only [facility] Internal Medicine [address] [address] Charlotte Felipe MD [address] [place] [address] Social History Tobacco Use Types Packs/Day Years Used Date Smoking Tobacco: Never Assessed Sex and Gender Information Value Date Recorded Sex Assigned at Not on file Legal Sex Male 5:02 AM VETERINARY NURSE Gender Identity Not on file Sexual Orientation Not on file documented as of this encounter Progress Notes * Charlotte Felipe MD - 07/16/2008 10:39 AM CDT SPECIALIST REFERRAL REQUEST DATE: APR 22, 2006 Note created by: Cherise Gao C 02:17 p Patient Name : LB DORANTESNON Address: [address] [address] D.O.B: 1955 SSN: [id number] Parent/Guardian if applicable: Work Phone: Patient Insurance: [employer] Policy#: [id number] Group #: Best To Call : HOME. Best Time to Call : ANYTIME. May We Leave Message At That Number : YES, LEAVE MESSAGE. Referring to: PODIATRY Dr. Carmelo Daily ph: [phone]. REASON FOR REFERRAL: Right foot pain PATIENT DIAGNOSIS: . ORDERING PHYSICIAN : CHARLOTTE FELIPE MD PRIORITY OF REFERRAL: AT PATIENT'S CONVENIENCE. OFFICE SLEDGER & PHONE: Cherise Gao C FOR SCHEDULING USE ONLY: FIRST ATTEMPT Date:APR 23, 2006 Karissa Hunt 09:13 a SPECIALIST/FACILITY REFERRED TO: SAME ABOVE. SCHEDULED BY: Karissa APPOINTMENT DATE : 04/25/2006 ( w/Dr. Daily @ 9:45a) Number of visits authorized : 3 EFFECTIVE DATES : Valid from: 04/25/2006 To: 07/27/2006 Referral number: [id number]....[id number] [id number] 04/23/2006 09:14 a Referral/Pre-auth communicated: Referral information phoned to specialist's office. * Charlotte Felipe MD - 07/16/2008 10:39 AM CDT WEIGHT: 195lbs BLOOD PRESSURE: 160/100 Right Arm Sitting NURSE NAME: Ethan Yañez N CHIEF COMPLAINT Patient here for follow up hypertension, hyperlipidemia. HISTORY: HISTORY: 272.4-HYPERLIPIDEMIA The patient is experiencing the following side effect(s): myalgias. 311-DEPRESSION No complications noted from the medication presently being used. 401.9-HYPERTENSION, UNSPECIFIED The patient denies chest pain, shortness of breath, dyspnea on exertion, pedal edema, or headache. The patient is tolerating the medication. 564.00-CONSTIPATION worse with lyrica--stopped 216.9-SKIN BENIGN NEOPLASM SITE UNSPECIFIED flaking on scalp ROS: ENDOCRINE: No heat or cold intolerance, no excessive thirst. CARDIAC: No chest pain, palpitations, orthopnea, dyspnea on exertion, or paroxysmal nocturnal dyspnea. RESPIRATORY: No dyspnea, cough, hemoptysis or wheezing. : No dysuria or hematuria. GI: No abdominal pain, nausea, vomiting, diarrhea, constipation, melena, or hematochezia. PAST MEDICAL HISTORY: reviewed SOCIAL HISTORY: TOBACCO USE: Has no significant smoking history. OCCUPATION: . working ALCOHOL: Does not give any significant history of alcohol usage. PHYSICAL EXAMINATION: CONSTITUTIONAL: GENERAL APPEARANCE: Healthy appearing patient in no distress. NECK/THYROID: Trachea midline. No thyroid enlargement, tenderness, [...] palpable. MUSCULOSKELETAL EXAM: EXTREMITIES: BILATERAL LOWER EXTREMITIES: No misalignment or tenderness. Full range of motion. Normal stability,strength and tone. SKIN: small scaled lesion scalp OFFICE PROCEDURES: SKIN CONSENTS/PROCEDURES: Liquid nitrogen cryotherapy was recommended. The procedure, including risks and potential complications, such as infection, scarring, blistering and hypopigmentation was explained. The patient understood and wished to proceed with treatment. The lesion was treated with liquid nitrogen resulting in freezing of the entire lesion and 1-2 mm of surrounding skin. ASSESSMENT/PLAN: 272.4-HYPERLIPIDEMIA hold med, see if sx improve,emph diet 311-DEPRESSION cont med,add cymbalta see if helps with pain MEDICATIONS: CYMBALTA ORAL CAPSULE ENTERIC COATED 30 MG, 1 Every Day, 30 Dispensed, status: NEW PRESCRIPTION, 04/22/2006. 401.9-HYPERTENSION, UNSPECIFIED high today, rec home monitor,reassess,contmed 564.00-CONSTIPATION dc lyrica 715.90-OSTEOARTHROSIS UNSPECIFIED discussed, now in feet refer podiatry 216.9-SKIN BENIGN NEOPLASM SITE UNSPECIFIED rx--likely [place], refer removal if recurs LAB ORDERS: Order number: [id number] Test Ordered: WART/LESION 14 OR MORE 29962 actinic keratosis SPECIALTY REFERRAL: PODIATRY Abdirahman Daily PREVENTIVE COUNSELING The patient was counseled regarding the proper use of sunscreen and protective clothing, diet, regular sustained exercise for at least 30 minutes 3-4 times per week. RETURN VISIT : Patient instructed to return in 1 month. Electronically Signed by: Charlotte Felipe MD on Saturday, April 22, 2006 documented in this encounter Plan of Treatment Upcoming Encounters Date Type Department Care Team (Late st Contact Info) Description 11/09/2024 1:20 PM VETERINARY NURSE Office Visit [facility] Primary Care [address] [facility] [place] [address] Charlotte Felipe MD [address] [place] [address] [address] [place] [phone] 11/10/2024 11:00 AM VETERINARY NURSE Office Visit [facility] Urology at the [facility] Medicine [address] [place] [phone] Chirag Damon MD [address] [address] 01/04/2025 12:00 PM CDT Office Visit [facility] Urology at the [facility] Medicine [address] [place] [phone] Tonia Melton PA [address] [address] documented as of this encounter Visit Diagnoses Not on filedocumented in this encounter Care Teams English Composition Teacher Relationship Specialty Start Date End Date Charlotte Felipe MD [address] [place] [address] [address] [place] [address] PCP - General 06/03/07 documented as of this encounter
--- OUTSIDE RECORDS SUMMARY | 2024-10-30 16:48 | XMS_ITS | Encounter Summary ---
Author Organization [facility] Address [address] [place] [address] Care Team Providers Care Rehanger Name Role Phone Mohinder Hadley MD Primary Care Provider [phone] Encounter Details Date Type Department Care Team (Late st Contact Info) Description 05/27/2006 Orders Only [facility] Internal Medicine [address] [address] Mohinder Hadley MD [address] [place] [address] Social History Tobacco Use Types Packs/Day Years Used Date Smoking Tobacco: Never Assessed Sex and Gender Information Value Date Recorded Sex Assigned at Not on file Legal Sex Male 5:02 AM SEED ANALYSIS LABORATORY ASSISTANT Gender Identity Not on file Sexual Orientation Not on file documented as of this encounter Progress Notes * Mohinder Hadley MD - 07/15/2008 11:23 PM CDT WEIGHT: 198lbs BLOOD PRESSURE: 162/100 Right Arm Sitting ( x's 3) NURSE NAME: Ethan Yañez N CHIEF COMPLAINT Patient here for follow up hypertension, hyperlipidemia. HISTORY: HISTORY: 311-DEPRESSION The patient denies excessive crying, a persistent feeling of sadness and hopelessness, and fatigue. 401.9-HYPERTENSION, UNSPECIFIED The patient denies chest pain, shortness of breath, dyspnea on exertion, pedal edema, or headache.forgot meds today 715.90-OSTEOARTHROSIS UNSPECIFIED The patient has joint pain and stiffness. PHYSICAL EXAMINATION: CONSTITUTIONAL: GENERAL APPEARANCE: Healthy appearing [...] tenderness or nodularity. Kidneys not palpable. ASSESSMENT/PLAN: 311-DEPRESSION cont med, inc to 60 MEDICATIONS: CYMBALTA ORAL CAPSULE ENTERIC COATED 30 MG, 1 Every Day, 30 Dispensed, status: DISCONTINUED, 05/27/2006. CYMBALTA ORAL CAPSULE ENTERIC COATED 60 MG, 1 Every Day, 30 Dispensed, status: NEW PRESCRIPTION, 05/27/2006. 401.9-HYPERTENSION, UNSPECIFIED home monitor may need inc med LAB ORDERS: 2 mo Order number: [id number] Test Ordered: COMPREHENSIVE METABOLIC PANEL W/ GLOMERULAR FILTRATION RATE, ESTIMATED (EGFR) 04766 Order number: [id number] Test Ordered: LIPID PANEL 7600 715.90-OSTEOARTHROSIS UNSPECIFIED cont med RETURN VISIT : Patient instructed to return in a few months. Electronically Signed by: Mohinder Hadley MD on Saturday, May 27, 2006 documented in this encounter Plan of Treatment Upcoming Encounters Date Type Department Care Team (Late st Contact Info) Description 11/09/2024 1:20 PM SEED ANALYSIS LABORATORY ASSISTANT Office Visit [facility] Primary Care [place] [id number] [place] [phone] Mohinder Hadley MD [address] [place] [address] [address] [place] [address] 11/10/2024 11:00 AM SEED ANALYSIS LABORATORY ASSISTANT Office Visit [facility] Urology at the [facility] Medicine [address] [facility] [address] [place] [address] Chirag Damon MD [address] [facility] [address] [place] [address] 01/04/2025 12:00 PM CDT Office Visit [facility] Urology at the [facility] [address] [place] [phone] Tonia Melton PA [address] [facility] [address] [place] [address] documented as of this encounter Visit Diagnoses Not on filedocumented in this encounter Care Teams Rehanger Relationship Specialty Start Date End Date Mohinder Hadley MD [address] [place] [address] [address] [place] [address] PCP - General 06/03/07 documented as of this encounter
--- OUTSIDE RECORDS SUMMARY | 2024-10-30 16:48 | XMS_ITS | Clinical Summary ---
Author Organization [facility] Address [address] [place] [address] Care Team Providers Care Machine Operator Cane Cutter Name Role Phone Mohinder Hadley MD Primary Care Provider [phone] Allergies No known active allergies Medications clotrimazole-beta methasone (Lotrisone) 1-0.05 % Cream Apply to affected area 2 times daily. Back bid 45 Gram 2 020 Active cyanocobalamin, vitamin B-12, (VITAMIN B12 ORAL) Take by mouth. Activ e ginkgo biloba (GINKGO ORAL) Take by mouth. A ctive multivitamin (DAILY-ARSH) tablet Take 1 Tablet by mouth daily. Active ALPRAZolam (XANAX) 0.5 mg tabletIndications :Other specified anxiety disorders Take 1 Tablet (0.5 mg) by mouth nightly as needed for Anxiety. 90 Tablet 2 022 Active esomeprazole (NexIUM) 40 mg Capsule, Delayed Release(E.C.) TAKE 1 CAPSULE BY MOUTH DAILY 90 Capsule 3 022 Active aspirin (ECOTRIN EC) 81 mg Tablet, Delayed Release (E.C.) Take 81 mg by mouth daily. Active potassium chloride (KLOR-CON) 10 mEq Extended Release tablet Take 10 mEq by mouth 2 times daily. 020 Active naloxone (NARCAN) 4 mg/spray [place], Non-Aerosol EMERGENCY USE ONLY: Administer 1 spray (4 mg) in one nostril one time. May repeat in alternating nostrils every 2-3 min until responsive or EMS arrives. 2 Each 3 023 Active omega-3 fatty acids/fish oil (Fish Oil-Berthoud-3 Fatty Acids) 440-880 mg Capsule Take 1 Tablet by mouth daily. Active DULoxetine (CYMBALTA) 60 mg Capsule, Delayed Release(E.C.) Take 1 Capsule (60 mg) by mouth daily. 90 Capsule 3 024 Active atorvastatin (LIPITOR) 40 mg tablet Take 1 Tablet (40 mg) by mouth daily. 90 Tablet 3 024 Active levothyroxine 88 mcg tablet Take 1 Tablet (88 mcg) by mouth daily. 90 Tablet 3 024 Active celecoxib (CeleBREX) 200 mg capsule Take 1 Capsule (200 mg) by mouth daily. 90 Capsule 3 024 Active triamcinolone acetonide (KENALOG) 0.1 % Cream Apply to affected area 2 times daily. 80 Gram 1 024 Active losartan (COZAAR) 50 mg tablet Take 1 Tablet (50 mg) by mouth daily. 100 Tablet 3 024 Active gabapentin (NEURONTIN) 300 mg capsule TAKE 1 CAPSULE BY MOUTH 3 TIMES DAILY 270 Capsule 3 024 Active ezetimibe (ZETIA) 10 mg tablet Take 1 tablet by mouth once daily 90 Tablet 3 024 Active fluticasone propionate (FLONASE) 50 mcg/spray [place], Suspension nasal inhaler Administer 2 Sprays in each nostril daily. 16 Gram 3 024 Active metoprolol succinate (TOPROL XL) 50 mg Extended Release 24 hour tablet Take 1 Tablet (50 mg) by mouth daily. 90 Tablet 3 024 Active HYDROcodone-aceta minophen (NORCO) 5-325 mg tabletIndications :Osteoarthritis of lumbar spine, unspecified spinal osteoarthritis complication status Take 1 Tablet by mouth every 4 hours as needed for Moderate Pain. Max Daily Amount: 6 Tablets 20 Tablet 5 5:23 PM ASH HANDLER 025 Active cephALEXin (KEFLEX) 500 mg capsule Take 1 Capsule (500 mg) by mouth every 12 hours. Start upon discharge. 4 Capsule 023 2024 Discontinued oxyCODONE-acetami nophen (PERCOCET) 7.5-325 mg TabletIndications :Osteoarthritis of lumbar spine, unspecified spinal osteoarthritis complication status Take 1 Tablet by mouth every 4 hours as needed for Pain, Moderate. Max Daily Amount: 6 Tablets 60 Tablet 023 2024 Discontinued HYDROcodone-aceta minophen (NORCO) 5-325 mg tabletIndications :Osteoarthritis of lumbar spine, unspecified spinal osteoarthritis complication status Take 1 Tablet by mouth every 4 hours as needed for Pain, Moderate. Max Daily Amount: 6 Tablets 42 Tablet 024 2024 Discontinued levoFLOXacin (LEVAQUIN) 500 mg tablet Take 1 Tablet (500 mg) by mouth daily for 7 days. 7 Tablet 5:23 PM ASH HANDLER 025 2024 Active Problems Patient Care Coordination No te Formatting of this note migh t be different from the original. IOCP Declined, Re Sandoval, RN - [place] Hydraulic Press Operator [id number] 11/25/23 [id number] 11/20/22 Problem Noted Date Diagnosed Date Stress incontinence 08/07/2024 Hepatic steatosis 05/20/2023 Gynecomastia 05/20/2023 Gastroesophageal reflux disease 05/20/2023 Prostate cancer 04/18/2023 Thickening of wall of gallbladder 10/25/2020 Atherosclerosis of prairie band coronary artery of lee lewis heart 12/29/2019 Old CO (myocardial infarction) 12/29/2019 Prediabetes 08/20/2019 Other hyperlipidemia [...] obstruction or gangrene 02/22/2004 Essential hypertension 02/22/2004 Resolved Problems Problem Noted Date Diagnosed Date Resolved Date Bronchiectasis 05/19/2022 11/25/2023 Backache, unspecified 12/09/20072010 Unspecified constipation 08/21/200706/2008 Acute sinusitis, unspecified 07/04/2007 03/15/2008 Actinic keratosis 04/22/2006 03/15/2008 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 10/22/2005 08/28/2016 Encounters Date Type Department Care Team Description 10/28/2024 External Device Data STL ABSTRACTION Provider, Abstract 10/27/2024 External Device Data STL ABSTRACTION Provider, Abstract 10/20/2024 External Device Data STL ABSTRACTION Provider, Abstract 10/14/2024 1:15 PM ASH HANDLER Anesthesia Event [facility] Operating Room [address] [place] [address] Nanci Mcnally MD Turnbough, Christopher J, PA 10/14/2024 1:09 PM ASH HANDLER - 10/14/2024 2:48 PM ASH HANDLER Surgery [facility] Operating Room [address] [place] [address] Chirag Pearson MD BLADDER SUSPENSION MALE SLING INSERTION 10/14/2024 10:55 AM ASH HANDLER - 10/14/2024 9:10 PM ASH HANDLER Hospital Encounter [facility] [address] [place] [address] Chirag Pearson MD LUNA (stress urinary incontinence), male Discharge Disposition: Home or Self Care 09/28/2024 10:44 AM ASH HANDLER - 09/28/2024 11:59 PM ASH HANDLER Hospital Encounter [facility] [address] [address] [place] [address] Chirag Pearson MD Discharge Disposition: Home or Self Care 09/28/2024 Telephone [facility] [address] [place] [address] Chirag Pearson MD Lab Results 09/22/[address] [phone] Mohinder Hadley MD Courtesy Call 08/31/[address] [phone] Mohinder Hadley MD 08/17/[address] [phone] Provider, Abstract 08/13/2024 Telephone [facility] [address] [place] [address] Chirag Pearson MD Surgery 08/11/2024 Orders Only [facility] [address] [facility] [address] [address] [place] [phone] Chirag Pearson MD 08/07/2024 8:00 AM CDT Office Visit [facility] Medicine [facility] S [facility] [address] [place] [address] Chirag Pearson MD Stress incontinence (Primary Dx) from Last 3 Months Immunizations Immunization Administration Dates Next Due (ADACEL/BOOSTRIX)(10 YR UP) TDAP VACCINE, 0.5ML, IM 12/02/2023,07/29/2012 (ANAHI) COVID-19 VACCINE - EMERGENCY USE AUTHORIZATION, AD26,COV2S(PF) 0.5 ML IM SUSP 01/13/2021 (PNEUMOVAX 23)(50 YRS UP) PN EUMOCOCCAL POLYSACCHARIDE (PPV23) 0.5 ML, IM 03/26/2017,08/17/2015(Deferred: Patient left) (PREVNAR 13)(6 WKS UP) PNEUM OCOCCAL CONJUGATE (PCV13) 0.5 ML, IM 12/21/2019 (PREVNAR 20)(6 WKS UP) PNEUM OCOCCAL CONJUGATE VACCINE 20-VALENT (PCV20), POLYSACCHARIDE [id number] CONJUGATE, ADJUVANT 0.5 ML (PF) IM 05/15/2022 (TDVAX)(7 YRS UP) TETANUS AN D DIPHTHERIA TOXOIDS, ADSORBED (2 LF OF TETANUS TOXOID AND 2 LF OF DIPHTHERIA TOXOID), 0.5ML (PF), IM 09/11/2002 INFLUENZA VACCINE HIGH DOSE QUADRIVALENT 65 YR UP PF IM 06/23/2021 INFLUENZA VACCINE QUADRIVALE NT 3 YR UP PF IM 07/17/2016 INFLUENZA VACCINE QUADRIVALE NT 6 MOS UP PF IM 08/20/2019,07/30/2017 Zoster Vaccine Live SQ 05/12/2015 Family History Medical History Relation Name Comments Stroke Father Heart Disease Mother Relation Name Status Comments Father Mother Social History Tobacco Use Types Packs/Day Years Used Date Smoking Tobacco: Never Passive Smoke Exposure: Never Smokeless Tobacco: Never Tobacco Cessation:Counseling Given: Yes Alcohol Use Standard Drinks/Week Comments No 0 [...] of Transportation (Non-Medical) Not on file 05/15/2022 Feeling Safe Answer Date Recorded Are you in a relationship wi th someone who hurts you emotionally and/or physically? No 10/14/2024 Food Insecurity Answer Date Recorded Social/Environmental Concerns No concerns Transportation Needs Answer Date Record ed Social/Environmental Concerns No concerns Housing Stability Answer Date Recorded Social/Environmental Concerns No concerns Utility Needs Answer Date Recorded Social/Environmental Concerns No concerns Sex and Gender Information Value Date Recorded Sex Assigned at Not on file Legal Sex Male 5:02 AM ASH HANDLER Gender Identity Not on file Sexual Orientation Not on file Last Filed Vital Signs Vital Sign Reading Time Taken Comments Blood Pressure 160/91 10/14/2024 9:08 PM ASH HANDLER Pulse 64 10/14/2024 9:08 PM ASH HANDLER Temperature 36.8 ??C (98.2 ??F) 10/14/2024 9:08 PM CS T Respiratory Rate 20 10/14/2024 9:08 PM ASH HANDLER Oxygen Saturation 98% 10/14/2024 9:08 PM ASH HANDLER Inhaled Oxygen Concentration - - Weight 97.1 kg (214 lb) 10/14/2024 11:17 AM ASH HANDLER Height 167.6 cm (5' 6 ) 10/14/2024 11:17 AM ASH HANDLER Body Mass Index 34.54 10/14/2024 11:17 AM ASH HANDLER Plan of Treatment Upcoming Encounters Date Type Department Care Team (Late st Contact Info) Description 11/09/2024 1:20 PM ASH HANDLER Office Visit [facility] [place] [phone] Mohinder Hadley MD [address] [place], [place] [phone] 11/10/2024 11:00 AM ASH HANDLER Office Visit [facility] Medicine [facility] S [facility] [address] [place] [phone] Chirag Pearson MD [address] [address] 01/04/2025 12:00 PM CDT Office Visit [facility] Medicine [address] [facility] [address] [place] [address] [place] [phone] Tonia Melton PA [address] [facility] [address] [place] [address] Health Maintenance Due Date Last Done Comments FIT/ DNA Q 3 YEARS (AUTO ORDER) 1972 FIT-DNA Q 3 years 1999 Flex Sig/CT Colonography Q 5 years 1999 FIT/FOBT Q 1 YEAR (AUTO ORDER) 07/19/2010 1 , 03/15/2008, 01/01/2007 FIT/FOBT Q 1 year 07/19/2010 07/19/2009, , 01/01/2007 RSV VACCINE (60+ or ) (1 - Risk 60-74 years 1-dose series) 2014 ZOSTER VACCINE (2 of 3) 07/07/2015 05/12/2015 INFLUENZA VACCINE (#1) 2024 , 08/20/2019, 07/30/2017, Additional history exists COVID-19 Vaccine (2 - 2023-2 5 season) 2024 01/13/2021 [place] Preventative Visit/Annual Wellness Visit 10/07/2024 11/25/2023, 11/20/2022, 05/15/2022, Additional history exists FLEX SIG/CT COLONOGRAPHY Q 5 YEARS (AUTO ORDER) 10/27/2024 10/27/2019, 10/27/2019 Pre-Diabetes and Diabetes Screening 05/07/2027 05/07/2024, 10/18/2021, 04/11/2021, Additional history exists COLORECTAL CANCER SCREENING (AUTO ORDER) 10/27/2029 10/27/2019, 10/27/2019, 10/27/2019, Additional history exists COLORECTAL SCREENING 10/27/2029 10/27/2019, 10/27/2019, 10/27/2019, Additional history exists Colorectal Cancer Screening (AUTO ORDER) 10/27/2029 Colorectal Cancer Screening 10/27/2029 DTAP/TDAP/TD VACCINES (3 - T d or Tdap) 12/02/2033 12/02/2023, 07/29/2012, 09/11/2002 PNEUMOCOCCAL VACCINE 65+ YEARS Completed 0 05/15/2022, 12/21/2019, 03/26/2017 Goals Goal Patient Goal Type Associated Problems Recent Progress Patient-Stated? Author Heart Failure Goal Care Plan Heart Failure Problem No Venus Tanner RN Heart Failure Goal Care Plan Heart Failure Problem No Venus Tanner RN Heart Failure Goal Care Plan Heart Failure Problem No Venus Tanner RN Heart Failure Goal Care Plan Heart Failure Problem No Mohinder Hadley MD Heart Failure Goal Care Plan Heart Failure Problem No Mohinder Hadley MD Medical Devices Implanted Type Area Special Library Librarian Device Identifier Shelf Expiration Date Model / Serial / Lot Endo Clip Ii 10mm [id number] - [id number] Implanted:Qty : 1 on 11/16/2020 by Chaz Beth MD at [facility] Clip N/A: Abdomen MED[employer]ON[employer] - COVIDIEN [id number] 08/06/2025 [id number] / / [id number] Clip Hemolok Lr [id number] - [facility] - [id number] Implanted:Qty : 1 on 04/18/2023 by Saroj Layton MD at [facility] Clip N/A: Pelvis TELEFLEX- WECK CLOSURE SYS 11/13/2027 [id number] / / [id number] Clip Hemolok Lr [id number] - [facility] - [id number] Implanted:Qty : 1 on 04/18/2023 by Saroj Layton MD at [facility] Clip N/A: Pelvis TELEFLEX- WECK CLOSURE SYS 08/27/2027 [id number] / / [id number] Hemostat Royce Ah Powder 3gm [id number] - [id number] Implanted:Qty : 1 on 04/18/2023 by Saroj Layton MD at [facility] Hemostatic N/A: Pelvis BARD DAVOL [id number] 12/04/2027 [id number] / / [id number] Hemostat Royce Ah Powder 3gm [id number] - [id number] Implanted:Qty : 1 on 04/18/2023 by Saroj Layton MD at [facility] Hemostatic N/A: Pelvis BARD DAVOL [id number] 12/04/2027 [id number] / / [id number] Mesh Uhs Lg Uhsl6 - [id number] Implanted:Qty : 1 on 05/07/2016 by Chaz Beth MD at [facility] Mesh Left: Groin J[employer]- [employer] [id number] 09/05/2017 [id number] / / [id number] Mesh Ultrapro Advanced 7.6x15cm [id number] - [id number] Implanted:Qty : 1 on 05/07/2016 by Chaz Beth MD at [facility] Mesh Right: Groin J[employer]J- [employer] [id number] 09/05/2017 [id number] / / [id number] [place] [employer] Advance Xp Sling Implanted:Qty : 1 on 10/14/2024 by Chirag Pearson MD at [facility] Sling N/A: Bladder [employer] 03/07/2027 [id number] / / [id number] Description:Requisition # [id number]. Stent X2 Cardiac Stent Explanted Type Area Special Library Librarian Device Identifier Shelf Expiration Date Model / Serial / Lot Disc Replace W/ [id number] Tube Feed Kangaroo 8fr 16in [id number] - Old - [id number] Explanted:Qty : 1 on 04/18/2023 by Saroj Layton MD at [facility] Feeding Device N/A: Pelvis CARDINAL - PATIENT RECOVERY 08/06/2026 [id number] / / [id number] Procedures Procedure Name Priority Date/Time Associated Diagnosis Comments NH CYSTOURETHROSCOPY 10/14/2024 1:09 PM ASH HANDLER LUNA (stress urinary incontinence), male NH SLING OPRATION CORRJ MALE URINARY INCONTINENCE 10/14/2024 1:09 PM ASH HANDLER LUNA (stress urinary incontinence), male EKG 12-LEAD Routine 09/28/2024 11:32 AM ASH HANDLER PSA Routine 09/28/2024 11:29 AM ASH HANDLER History of prostate cancer CBC WITHOUT DIFFERENTIAL Routine 024 11:29 AM ASH HANDLER BASIC METABOLIC PANEL Routine 09/28/2024 11:29 AM ASH HANDLER NH CYSTOURETHROSCOPY Routine 08/07/2024 8:25 AM CDT Stress incontinence HEMOGLOBIN A1C Routine 05/07/2024 10:06 AM CDT Prediabetes COLONOSCOPY REPORT Routine 10/27/2019 POC OCCULT BLOOD UP TO 3 CARDS Routine 07/19/2009 Screen for Colon Cancer from Last 3 Months or Most Recently Relevant to Health Maintenance Results * EKG 12-LEAD (09/28/2024 11:32 AM ASH HANDLER) 09/28/2024 11:3 2 AM ASH HANDLER Narrative INTERFACE SYSTEM - 09/28/2024 11:39 AM ASH HANDLER ? [facility] ? [address] [place] [address] ? Test Date: ?2024-09-28 Pat Name: ? LB MCCORMICK ? Department: ?? 100 ?Room: ? Gender: ? Male ? Tugboat Pilot: ?? Sharri DEE: ?1955 ? Requested By: CHIRAG PEARSON ?? Order Number: [id number] ? Reading : ?? Brandyn Bridges ? Measurements Intervals ?[place] ? Rate: ? 56 ? P: ?43 NH: ? 191 ?QRS: ?-19 QRSD: ? 101 ?T: ?101 QT: ? 429 ? QTc: ?415 ? Interpretive Statements SINUS BRADYCARDIA LEFT VENTRICULAR HYPERTROPHY AND ST-T CHANGE ??[VOLTAGE CRITERIA PLUS ST/T ABNORMALITY] Electronically Signed On 09-28-2024 11:39:20 ASH HANDLER by Brandyn Bridges Procedure Note Brandyn Bridges MD - 09/28/2024 [facility] [address] , [place] [address] Test Date: 2024-09-28 Pat Name: LB MCCORMICK Department: 100 Room: Gender: Male Tugboat Pilot: Sharri : 1955 Requested By: CHIRAG PEARSON Order Number: [id number] Dayanara MD: Brandyn Bridges Measurements Intervals [place] Rate: 56 P: 43 NH: 191 QRS: -19 QRSD: 101 T: 101 QT: 429 QTc: 415 Interpretive Statements SINUS BRADYCARDIA LEFT VENTRICULAR HYPERTROPHY AND ST-T CHANGE [VOLTAGE CRITERIA PLUS ST/T ABNORMALITY] Electronically Signed On 09-28-2024 11:39:20 ASH HANDLER by Brandyn Bridges Rose [place] SANITATION TRUCK CLEANER ECG ORDERABLES Final Res ult INTERFACE SYSTEM Refer to clinic/hospital department * (ABNORMAL) CBC WITHOUT DIFFERENTIAL (09/28/2024 11:29 AM ASH HANDLER) Pathologist [facility] WBC 7.8 4.0 - 9.8 K/uL 09/28/2024 12:46 PM ASH HANDLER [facility] RBC 4.42(L) 4.50 - 5.40 M/uL 09/28/2024 12:46 PM ASH HANDLER [facility] HEMOGLOBIN 13.3(L) 13.6 - 16.5 g/dL 09/28/2024 12:46 PM ASH HANDLER [facility] HEMATOCRIT 39.9(L) 40.0 - 48.0 % 09/28/2024 12:46 PM ASH HANDLER [facility] MCV 90.3 82.0 - 99.0 fL 09/28/2024 12:46 PM ASH HANDLER [facility] MCH 30.1 27.2 - 32.6 pg 09/28/2024 12:46 PM ASH HANDLER [facility] MCHC 33.3 31.5 - 35.5 g/dL 09/28/2024 12:46 PM ASH HANDLER [facility] PLATELETS 331 140 - 350 K/uL 09/28/2024 12:46 PM ASH HANDLER [facility] MPV 11.1 9.3 - 12.4 fL 09/28/2024 12:46 PM ASH HANDLER [facility] RDW 13.4 11.5 - 14.5 % 09/28/2024 12:46 PM ASH HANDLER [facility] RDW-STDEV 44.4 37.1 - 48.7 fL 09/28/2024 12:46 PM [facility] Blood Venipuncture / Unknown 09/28/2024 11:29 AM ASH HANDLER 09/28/2024 12:39 PM ASH HANDLER Rose Aguayo [place] SANITATION TRUCK CLEANER HEMATOLOGY ORDERABLES Fin al Result Performing Organization Address [facility] Co de Phone Number [facility] CLIA# [id number] [address] [place] [address] * PSA (09/28/2024 11:29 AM ASH HANDLER) PSA <0.1 <4.0 ng/mL 09/28/2024 1:29 PM ASH HANDLER [facility] Blood Venipuncture / Unknown 09/28/2024 11:29 AM ASH HANDLER 09/28/2024 12:39 PM ASH HANDLER Narrative [facility] - 09/28/2024 1:29 PM ASH HANDLER The concentration of PSA in a given specimen, as determined by assays from different manufacturers, can vary because of differences in assay methods and reagent specificity. Values obtained with different assay methods cannot be used interchangeably. The testing method in use is the NAVJOT Electrochemiluminescence Immunoassay. Chirag Pearson MD CHEMISTRY ORDERABLES Final R esult Performing Organization Address [facility] Co de Phone Number [facility] [email or web address] CLIA# [id number] [address] [place] [address] * (ABNORMAL) BASIC METABOLIC PANEL (09/28/2024 11:29 AM ASH HANDLER) SODIUM 144 136 - 145 mmol/L 09/28/2024 1:29 PM ASH HANDLER [facility] POTASSIUM 3.1(L) 3.5 - 5.0 mmol/L 09/28/2024 1:29 PM ASH HANDLER [facility] [email or web address] CHLORIDE 105 98 - 107 mmol/L 09/28/2024 1:29 PM ASH HANDLER [facility] CO2 28 22 - 29 mmol/L 09/28/2024 1:29 PM [facility] CALCIUM 8.8 8.6 - 10.2 mg/dL 09/28/2024 1:29 PM [facility] BUN 18 8 - 23 mg/dL 09/28/2024 1:29 PM [facility] CREATININE 1.08 0.67 - 1.17 mg/dL 09/28/2024 1:29 PM [facility] GLUCOSE 95 74 - 99 mg/dL 09/28/2024 1:29 PM [facility] GFR >60 >=60 mL/min/1.7 3 sq meter 09/28/2024 1:29 PM [facility] Comment:eGFR calculated with 2020 CKD-EPI equation. Vegetarian diet, extremely high or low muscle mass, and may affect results. Cystatin C with Glomerular Filtration Rate is a suitable alternative for these patients. ANION GAP 11 8 - 16 mmol/L 09/28/2024 1:29 PM [facility] Blood Venipuncture / Unknown 09/28/2024 11:29 AM ASH HANDLER 09/28/2024 12:39 PM ASH HANDLER [place] SANITATION TRUCK CLEANER CHEMISTRY ORDERABLES [place] Result [facility]# [id number] [address] [place] [address] * [place] CYSTOURETHROSCOPY (08/07/2024 8:25 AM CDT) Narrative [facility] UROLOGY MCPM - 08/07/2024 8:25 AM CDT Chirag Pearson MD ? 08/07/2024 ??8:26 AM CYSTOSCOPY PATIENT NAME: Lb Mccormick ?? DATE OF : 1955 TODAY'S DATE: 08/07/2024 INDICATIONS: Problem List Items Addressed This Visit ?? Urology Problems Stress incontinence - Primary Relevant Orders CYSTOURETHROSCOPY PROCEDURE: Perineum prepped and draped in sterile fashion. 2% Lidocaine gel locally: (Yes or No) - Yes Cystoscopy: Lenses used: (Flexible, 30, 70 or 0 degree) - flexible Urethral mucosa: (normal or other) - normal Neoplasms, stones, foreign bodies: (Yes or No) - no Ureteral orifices: visible He has mild mobility of his sphincter. ??No bladder neck contracture. POST PROCEDURE: Prophylactic antibiotic given: (No or Yes) - Yes Patient discharged in no distress / no new pain. Discharge instructions reviewed with patient. ASSESSMENT: Stress urinary incontinence PLAN: See progress note from same day us Chirag Pearson MD PROCEDURE ORDERABLES [place] Result [facility] UROLOGY [facility] CLIA# [id number] [address] [place] [address] * (ABNORMAL) HEMOGLOBIN A1C (05/07/2024 10:06 AM CDT) HEMOGLOBIN A1C 5.9(H) <5.7 % of total Hgb [employer] G[employer]a Comment: For someone without known diabetes, a hemoglobin A1c value between 5.7% and 6.4% is consistent with prediabetes and should be confirmed with a follow-up test. For someone with known diabetes, a value <7% indicates that their diabetes is well controlled. A1c targets should be individualized based on duration of diabetes, age, comorbid conditions, and other considerations. This assay result is consistent with an increased risk of diabetes. Currently, no consensus exists regarding use of hemoglobin A1c for diagnosis of diabetes for children. ESTIMATED AVERAGE GLUCOSE (MG/DL) 123 mg/dL [employer] Guevara ESTIMATED AVERAGE GLUCOSE (MMOL/L) 6.8 mmol/L [employer] Technology[employer]nez Guevara Comment: ? This test was performed on the Navjot palomo c503 platform. Effective 12/23/23, a change in test platforms from the Lara Squeak Rattle And Leak Repairer to the Navjot palomo c503 may have shifted HbA1c results compared to historical results. Based on laboratory validation testing conducted at [facility], the Navjot platform relative to the Lara platform had an average increase in HbA1c value of < or = 0.3%. This difference is within accepted variability established by the National Glycohemoglobin Standardization Program. Note that not all individuals will have had a shift in their results and direct comparisons between historical and current results for testing conducted on different platforms is not recommended. FASTING:YES FASTING: YES Test Performed at: [place] [address] [address] ??[id number] Chris Alfonso Blood 05/07/2024 10:0 6 AM CDT 05/07/2024 10:06 AM CDT Mohinder Hadley MD CHEMISTRY ORDERABLES Final Re sult [facility] [phone] [place] [address] [address] [phone] * COLONOSCOPY REPORT (10/27/2019) Abstract Provider GI PROCEDURE ORDERABLES Edited Result - Final Performing Organization Address City/[facility]/ZIP Co de Phone Number EXTERNAL LAB * POC OCCULT BLOOD UP TO 3 CARDS (07/19/2009) OCCULT BLOOD #1 [facility] OCCULT BLOOD #2 [facility] OCCULT BLOOD #3 [facility] Stool specimen (specimen) Mohinder Hadley MD POINT OF CARE TESTING Final R esult Performing Organization Address [facility] Co de Phone Number [facility] from Last 3 Months or Most Recently Relevant to Health Maintenance Additional Health Concerns Active Problems Noted Date Diagnosed Date Heart Failure Problem 09/18/2024 Heart Failure Problem 09/18/2024 Heart Failure Problem 09/18/2024 Heart Failure Problem 09/22/2024 Heart Failure Problem 09/22/2024 Insurance [employer]ET[employer] O [facility] RX OPTUM RX Member Subscriber Plan / Payer (Ef fective 2020-Present) Name:ColbyLb harris Lee Relation to Subscriber:Self Name:Lb Mccormick Subscriber ID:Not on file Payer ID:Not on file Group ID:[id number] Type:RX Medicare Part D Address: [place] RX AETNA Medicare Part D Advance Directives For more information, please contact: [phone] Documents on File Type Date Recorded Patient Mental Retardation Aide Expl anation Advance Directive Living Will 04/18/2023 6:11 AM Advance Directive POA 04/18/2023 6:10 AM A dvance Directive POA Advance Directive POA 05/08/2016 4:39 PM Ad springer Directive POA Advance Directive Living Will 05/07/2016 6:24 AM Advance Directive Living Will * Full Code (Latest Code Status on File) Date Activated Date Inactivated Comments 10/14/2024 2:29 PM 10/14/2024 11:16 PM * Full Code Date Activated Date Inactivated Comments 10/14/2024 1:02 PM 10/14/2024 2:29 PM * Full Code Date Activated Date Inactivated Comments 10/14/2024 11:24 AM 10/14/2024 1:02 PM * Full Code Date Activated Date Inactivated Comments 04/18/2023 11:28 AM 04/19/2023 9:29 AM * Full Code Date Activated Date Inactivated Comments 11/16/2020 9:06 AM 11/16/2020 2:46 PM Care Teams Machine Operator Cane Cutter Relationship Specialty Start Date End Date Mohinder Hadley MD [address] [place] [address] PCP - General 06/03/07
--- OUTSIDE RECORDS SUMMARY | 2024-10-30 16:48 | XMS_ITS | Encounter Summary ---
Author Organization Address [address] [place] [address] Care Team Providers Care Latcher Name Role Phone Mohinder Hadley MD Primary Care Provider [phone] Encounter Details Date Type Department Care Team (Late st Contact Info) Description 07/31/2006 Orders Only [facility] Internal Medicine [address] [address] Mohinder Hadley MD [address] [place] [address] Social History Tobacco Use Types Packs/Day Years Used Date Smoking Tobacco: Never Assessed Sex and Gender Information Value Date Recorded Sex Assigned at Not on file Legal Sex Male 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 CLIENT OFFICER Gender Identity Not on file Sexual Orientation Not on file documented as of this encounter Progress Notes * Mohinder Hadley MD - 07/20/2008 9:46 PM CDT WEIGHT: 196lbs BLOOD PRESSURE: 140/78 Right Arm Sitting NURSE NAME: estella Yazmin, R CHIEF COMPLAINT Patient here for follow up hypertension. HISTORY: HISTORY: 311-DEPRESSION The patient has symptoms of fatigue.ran out of med 1 mo ago 401.9-HYPERTENSION, UNSPECIFIED The patient is tolerating the medication. The patient denies chest pain, shortness of breath, dyspnea on exertion, pedal edema, or headache. 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 715.90-OSTEOARTHROSIS UNSPECIFIED The patient has joint pain and stiffness. 780.4-VERTIGO/DIZZINESS intermittent sx with sinus 780.57-SLEEP APNEA refuses to use cpap ROS: GENERAL: See HISTORY OF PRESENT ILLNESS. ENDOCRINE: No heat or cold intolerance, no [...] NOSE, MOUTH AND THROAT: EARS: EFFUSION PRESENT BILATERALLY. ORAL: Inspection of gums, lips, palate, and [...] hepatosplenomegaly, tenderness or nodularity. Kidneys not palpable. SKIN: SKIN: Warm, dry, no diaphoresis, no significant lesions, irritation, rashes or ulcers. No induration, obvious subcutaneous nodules or tightening. ASSESSMENT/PLAN: 272.4-HYPERLIPIDEMIA restart med, aching no different off med MEDICATIONS: SIMVASTATIN ORAL TABLET 20 MG, 1 Every Day, 30 Dispensed, 4 Fills, status: NEW PRESCRIPTION, 07/31/2006. 311-DEPRESSION restart med, pt worse off med, no change in bp off med MEDICATIONS: CYMBALTA ORAL CAPSULE ENTERIC COATED 60 MG, 1 Every Day, 30 Dispensed, 3 Fills, status: CONTINUED, 07/31/2006. 401.9-HYPERTENSION, UNSPECIFIED cont med, try alt MEDICATIONS: DIOVAN HCT ORAL TABLET 160-12.5 MG, 1 Every Day, 90 Dispensed, status: NEW PRESCRIPTION, 07/31/2006. 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 cont med 780.4-VERTIGO/DIZZINESS 780.52-INSOMNIA ok med prn 780.57-SLEEP APNEA refuses rx RETURN VISIT : Patient instructed to return in 2 months. Electronically Signed by: Mohinder Hadley MD on Monday, July 31, 2006 documented in this encounter Plan of Treatment Upcoming Encounters Date Type Department Care Team (Late st Contact Info) Description 11/09/2024 1:20 PM CHIEF CLIENT OFFICER Office Visit [facility] [place] [address] Mohinder Hadley MD [address] [place] [address] 11/10/2024 11:00 AM CHIEF CLIENT OFFICER Office Visit [facility] Urology at the [facility] Medicine [address] [facility] [address] [place] [phone] Chirag Damon MD [address] [address] 01/04/2025 12:00 PM CDT Office Visit [facility] Urology at the [facility] Medicine [address] [place] [address] Tonia Melton PA [address] [address] documented as of this encounter Visit Diagnoses Not on filedocumented in this encounter Care Teams Latcher Relationship Specialty Start Date End Date Mohinder Hadley MD [address] [place], [place] [phone] PCP - General 06/03/07 documented as of this encounter
--- OUTSIDE RECORDS SUMMARY | 2024-10-30 16:48 | XMS_ITS | Encounter Summary ---
Author Organization [facility] Address [address] [place] [address] Care Team Providers Care Aircraft Riveter Name Role Phone Mohinder Hadley MD Primary Care Provider [phone] Encounter Details Date Type Department Care Team (Late Contact Info) Description 04/22/2006 Outpatient Historical [facility] Internal Medicine [address] [address] Mohinder Hadley MD [address] [place] [address] [address] [place] [phone] Social History Tobacco Use Types Packs/Day Years Used Date Smoking Tobacco: Never Assessed Sex and Gender Information Value Date Recorded Sex Assigned at Not on file Legal Sex Male 5:02 AM MORTGAGE MANAGER Gender Identity Not on file Sexual Orientation Not on file documented as of this encounter Plan of Treatment Upcoming Encounters Date Type Department Care Team (Late Contact Info) Description 11/09/2024 1:20 PM MORTGAGE MANAGER Office Visit [facility] Primary Care [facility] [address] [place] [address] [address] [place] [phone] Mohinder Hadley MD [address] [place] [address] [address] [place] [phone] 11/10/2024 11:00 AM MORTGAGE MANAGER Office Visit [facility] Urology at the [facility] [address] [place] [address] Chirag Damon MD [address] [facility] [address] [place] [address] 01/04/2025 12:00 PM CDT Office Visit [facility] Urology at the [facility] Medicine [address] [place] [address] Tonia Melton PA [address] [facility] [address] [place] [address] documented as of this encounter Visit Diagnoses Not on filedocumented in this encounter Care Teams Aircraft Riveter Relationship Specialty Start Date End Date Mohinder Hadley MD [address] [place] [phone] PCP - General 06/03/07 documented as of this encounter
--- OUTSIDE RECORDS SUMMARY | 2024-10-30 16:48 | XMS_ITS | Encounter Summary ---
Author Organization [facility] Address [address] [place] [address] Care Team Providers Care Floor Plan Adjuster Name Role Phone Mohinder Hadley MD Primary Care Provider [phone] Encounter Details Date Type Department Care Team (Late Contact Info) Description 07/02/2006 Orders Only [facility] Internal Medicine [address] [address] Mohinder Hadley MD [address] [place] [address] [address] [place] [phone] Social History Tobacco Use Types Packs/Day Years Used Date Smoking Tobacco: Never Assessed Sex and Gender Information Value Date Recorded Sex Assigned at Not on file Legal Sex Male 5:02 AM SUPERINTENDENT MENAGERIE Gender Identity Not on file Sexual Orientation Not on file documented as of this encounter Plan of Treatment Upcoming Encounters Date Type Department Care Team (Late Contact Info) Description 11/09/2024 1:20 PM SUPERINTENDENT MENAGERIE Office Visit [facility] Primary Care [facility] [address] [place] [address] [address] [place] [phone] Mohinder Hadley MD [address] [place] [address] [address] [place] [phone] 11/10/2024 11:00 AM SUPERINTENDENT MENAGERIE Office Visit [facility] Urology at the [facility] [address] [place] [address] Chirag Damon MD [address] [facility] [address] [place] [address] 01/04/2025 12:00 PM CDT Office Visit [facility] Urology at the [facility] Medicine [address] [place] [address] Tonia Melton PA [address] [facility] [address] [place] [address] documented as of this encounter Visit Diagnoses Not on filedocumented in this encounter Care Teams Floor Plan Adjuster Relationship Specialty Start Date End Date Mohinder Hadley MD [address] [place] [phone] PCP - General 06/03/07 documented as of this encounter
--- OUTSIDE RECORDS SUMMARY | 2024-10-30 16:48 | XMS_ITS | Encounter Summary ---
Author Organization [facility] Address [address] [place] [address] Care Team Providers Care Cyber Security Analyst Name Role Phone Mohinder Hadley MD Primary Care Provider [phone] Encounter Details Date Type Department Care Team ([facility] st Contact Info) Description 10/28/2024 External Device Data ST[facility] ABSTRACTION Provider, Abstract NO ADDRESS ON FILE Social History Tobacco Use Types Packs/Day Years Used Date Smoking Tobacco: Never Passive Smoke Exposure: Never Smokeless Tobacco: Never Alcohol Use Standard [...] on file Legal Sex Male 5:02 AM BURRER MARKER AXLE Gender Identity Not on file Sexual Orientation Not on file documented as of this encounter Functional Status * Does this person have serious difficulty walking or climbing stairs? Answer Date of Assessment Author No 04/18/2016 1:55 PM CDT documented as of this encounter Plan of Treatment Upcoming Encounters Date Type Department Care Team (Late st Contact Info) Description 11/09/2024 1:20 PM BURRER MARKER AXLE Office Visit [facility] Primary Care [facility] [address] [place] [address] [address] [place] [address] Mohinder Hadley MD [address] [place] [address] [address] [place] [address] 11/10/2024 11:00 AM BURRER MARKER AXLE Office Visit [facility] Urology at the [facility] Medicine [address] [place] [phone] Chirag Damon MD [address] [place] [address] 01/04/2025 12:00 PM CDT Office Visit [facility] Urology at the [facility] Medicine [address] [place] [phone] Tonia Melton PA [address] [place] [address] documented as of this encounter Goals Goal Patient Goal Type Associated Problems [...] Heart Failure Problem No Mohinder Hadley MD documented as of this encounter Visit Diagnoses Not on filedocumented in this encounter Additional Health Concerns Active Problems Noted Date Diagnosed Date Heart Failure Problem 09/18/2024 Heart Failure Problem 09/18/2024 Heart Failure Problem 09/18/2024 Heart Failure Problem 09/22/2024 Heart Failure Problem 09/22/2024 documented as of this encounter Care Teams Cyber Security Analyst Relationship Specialty Start Date End Date Mohinder Hadley MD [address] [place] [phone] PCP - General 06/03/07 documented as of this encounter
--- OUTSIDE RECORDS SUMMARY | 2024-10-30 16:48 | XMS_ITS | Encounter Summary ---
Author Organization [facility] Address [address] [place] [address] Care Team Providers Care Care Management Associate Name Role Phone Mohinder Hadley MD Primary Care Provider [phone] Encounter Details Date Type Department Care Team (Late st Contact Info) Description 10/02/2006 Orders Only [facility] Internal Medicine [address] [address] Mohinder Hadley MD [address] [place] [address] Social History Tobacco Use Types Packs/Day Years Used Date Smoking Tobacco: Never Assessed Sex and Gender Information Value Date Recorded Sex Assigned at Not on file Legal Sex Male 5:02 AM ACCOUNTING SOFTWARE SPECIALIST Gender Identity Not on file Sexual Orientation Not on file documented as of this encounter Progress Notes * Mohinder Hadley MD - 07/21/2008 4:45 AM CDT WEIGHT: 195lbs BLOOD PRESSURE: 130/70 Right Arm Sitting NURSE NAME: Senait Yazmin, R CHIEF COMPLAINT Patient here for follow up hyperlipidemia, hypertension. HISTORY: off cymbalta cannot afford med, did not fill zocor, still with pain from djd PHYSICAL EXAMINATION: CONSTITUTIONAL: GENERAL APPEARANCE: Healthy appearing [...] or nodularity. Kidneys not palpable. ASSESSMENT/PLAN: 272.4-HYPERLIPIDEMIA MEDICATIONS: VYTORIN ORAL TABLET 10-40 MG, 1/2 Every Day, 90 Dispensed, status: NEW PRESCRIPTION, 10/02/2006. sample given 311-DEPRESSION given sample med MEDICATIONS: CYMBALTA ORAL CAPSULE ENTERIC COATED 60 MG, 1 Every Day, 60 Dispensed, 3 Fills, status: CONTINUED, 10/02/2006. 401.9-HYPERTENSION, UNSPECIFIED contmed LAB ORDERS: 3 mo Order number: [id number] Test Ordered: COMPREHENSIVE METABOLIC PANEL W/ GLOMERULAR FILTRATION RATE, ESTIMATED (EGFR) 07950 Order number: [id number] Test Ordered: LIPID PANEL 7600 530.10-ESOPHAGITIS givne med sample MEDICATIONS: PREVACID ORAL CAPSULE DELAYED RELEASE 30 MG, 1 Every Day, 30 Dispensed, status: NEW PRESCRIPTION, 10/02/2006. Patient Education: The importance of compliance was stressed. The patient was told that there needsto be a commitment to following our agreed upon course of action. It was noted that failing to be compliant can lead to untoward health outcomes. RETURN VISIT : Patient instructed to return in 3 months. Electronically Signed by: Mohinder Hadley MD on Monday, October 02, 2006 documented in this encounter Plan of Treatment Upcoming Encounters Date Type Department Care Team (Late st Contact Info) Description 11/09/2024 1:20 PM ACCOUNTING SOFTWARE SPECIALIST Office Visit [facility] Primary Care [place] [address] [place] [address] Mohinder Hadley MD [address] [place] [phone] 11/10/2024 11:00 AM ACCOUNTING SOFTWARE SPECIALIST Office Visit [facility] Urology at the [facility] Medicine [address] [facility] [address] [place] [address] Chirag Damon MD [address] [facility] [address] [place] [address] 01/04/2025 12:00 PM CDT Office Visit [facility] Urology at the [facility] [address] [facility] [address] [place] [address] Tonia Melton PA [address] [facility] [address] [place] [address] documented as of this encounter Visit Diagnoses Not on filedocumented in this encounter Care Teams Care Management Associate Relationship Specialty Start Date End Date Mohinder Hadley MD [address] [place] [address] [place] [address] PCP - General 06/03/07 documented as of this encounter
--- OUTSIDE RECORDS SUMMARY | 2024-10-30 16:48 | XMS_ITS | Encounter Summary ---
Author Organization [facility] Address [address] [place] [address] Care Team Providers Care Ferruler Name Role Phone Mohinder Hadley MD Primary Care Provider [phone] Encounter Details Date Type Department Care Team ([facility] Contact Info) Description 07/31/2006 Outpatient Historical [facility] Internal Medicine [address] [address] Mohinder Hadley MD [address] [place] [address] Social History Tobacco Use Types Packs/Day Years Used Date Smoking Tobacco: Never Assessed Sex and Gender Information Value Date Recorded Sex Assigned at Not on file Legal Sex Male 5:02 AM AEMT Gender Identity Not on file Sexual Orientation Not on file documented as of this encounter Last Filed Vital Signs Vital Sign Reading Time Taken Comments Blood Pressure 140/78 07/31/2006 1:15 PM CDT Pulse - - Temperature - - Respiratory Rate - - Oxygen Saturation - - Inhaled Oxygen Concentration - - Weight 88.9 kg (196 lb) 07/31/2006 1:15 PM CDT Height - - Body Mass Index - - documented in this encounter Plan of Treatment Upcoming Encounters Date Type Department Care Team ([facility] Contact Info) Description 11/09/2024 1:20 PM AEMT Office Visit [facility] Primary Care [address] [place] [address] Mohinder Hadley MD [address] [place] [address] [address] [place] [address] 11/10/2024 11:00 AM AEMT Office Visit [facility] Urology at the [facility] Medicine [address] [address] [place] [phone] Chirag Damon MD [address] [facility] [address] [place], [place] [phone] 01/04/2025 12:00 PM CDT Office Visit [facility] Urology at the [facility] [address] [place] [address] Tonia Melton PA [address] [facility] [address] [place], [place] [phone] documented as of this encounter Visit Diagnoses Not on filedocumented in this encounter Care Teams Ferruler Relationship Specialty Start Date End Date Mohinder Hadley MD [address] [place] [address] PCP - General 06/03/07 documented as of this encounter
--- OUTSIDE RECORDS SUMMARY | 2024-10-30 16:48 | XMS_ITS | Encounter Summary ---
Author Organization [facility] Address [address] [place] [address] Care Team Providers Care Laborer Salvage Name Role Phone Mohinder Hadley MD Primary Care Provider [phone] Encounter Details Date Type Department Care Team ([facility] Contact Info) Description 10/02/2006 Outpatient Historical [facility] Internal Medicine [address] [address] Mohinder Hadley MD [address] [place] [address] [address] [place] [address] Social History Tobacco Use Types Packs/Day Years Used Date Smoking Tobacco: Never Assessed Sex and Gender Information Value Date Recorded Sex Assigned at Not on file Legal Sex Male 5:02 AM AIR CARGO GROUND CREW SUPERVISOR Gender Identity Not on file Sexual Orientation Not on file documented as of this encounter Last Filed Vital Signs Vital Sign Reading Time Taken Comments Blood Pressure 130/70 10/02/2006 1:30 PM AIR CARGO GROUND CREW SUPERVISOR Pulse - - Temperature - - Respiratory Rate - - Oxygen Saturation - - Inhaled Oxygen Concentration - - Weight 88.5 kg (195 lb) 10/02/2006 1:30 PM AIR CARGO GROUND CREW SUPERVISOR Height - - Body Mass Index - - documented in this encounter Plan of Treatment Upcoming Encounters Date Type Department Care Team ([facility] Contact Info) Description 11/09/2024 1:20 PM AIR CARGO GROUND CREW SUPERVISOR Office Visit [facility] Primary Care [address] [place] [address] Mohinder Hadley MD [address] [place] [address] [address] [place] [address] 11/10/2024 11:00 AM AIR CARGO GROUND CREW SUPERVISOR Office Visit [facility] Urology at the [facility] Medicine [address] [place] [phone] Chirag Damon MD [address] [facility] [address] [place], [place] [phone] 01/04/2025 12:00 PM CDT Office Visit [facility] Urology at the [facility] [address] [place] [phone] Tonia Melton PA [address] [phone] documented as of this encounter Visit Diagnoses Not on filedocumented in this encounter Care Teams Laborer Salvage Relationship Specialty Start Date End Date Mohinder Hadley MD [address] [place] [address] PCP - General 06/03/07 documented as of this encounter
--- OUTSIDE RECORDS SUMMARY | 2024-10-30 16:48 | XMS_ITS | Encounter Summary ---
Author Organization [facility] Address [address] [place] [address] Care Team Providers Care Sort Line Name Role Phone Mohinder Hadley MD Primary Care Provider [phone] Encounter Details Date Type Department Care Team (Late Contact Info) Description 01/01/2007 Outpatient Historical [facility] Internal Medicine [address] [address] Mohinder Hadley MD [address] [place] [address] [address] [place] [phone] Social History Tobacco Use Types Packs/Day Years Used Date Smoking Tobacco: Never Assessed Sex and Gender Information Value Date Recorded Sex Assigned at Not on file Legal Sex Male 5:02 AM LAYOUT INSPECTOR Gender Identity Not on file Sexual Orientation Not on file documented as of this encounter Plan of Treatment Upcoming Encounters Date Type Department Care Team (Late Contact Info) Description 11/09/2024 1:20 PM LAYOUT INSPECTOR Office Visit [facility] Primary Care [facility] [address] [place] [address] [address] [place] [phone] Mohinder Hadley MD [address] [place] [address] [address] [place] [phone] 11/10/2024 11:00 AM LAYOUT INSPECTOR Office Visit [facility] Urology at the [facility] [address] [place] [address] Chirag Damon MD [address] [facility] [address] [place] [address] 01/04/2025 12:00 PM CDT Office Visit [facility] Urology at the [facility] Medicine [address] [place] [address] Tonia Melton PA [address] [facility] [address] [place] [address] documented as of this encounter Visit Diagnoses Not on filedocumented in this encounter Care Teams Sort Line Relationship Specialty Start Date End Date Mohinder Hadley MD [address] [place] [phone] PCP - General 06/03/07 documented as of this encounter
--- OUTSIDE RECORDS SUMMARY | 2024-10-30 16:48 | XMS_ITS | Encounter Summary ---
Author Organization [facility] Address [address] [place] [address] Care Team Providers Care Radio Installer Automobile Name Role Phone Mohinder Hadley MD Primary Care Provider [phone] Encounter Details Date Type Department Care Team ([facility] Contact Info) Description 06/26/2006 Outpatient Historical [facility] Internal Medicine [address] [address] Mohinder Hadley MD [address] [place] [address] Social History Tobacco Use Types Packs/Day Years Used Date Smoking Tobacco: Never Assessed Sex and Gender Information Value Date Recorded Sex Assigned at Not on file Legal Sex Male 5:02 AM FOUNDING PARTNER Gender Identity Not on file Sexual Orientation Not on file documented as of this encounter Last Filed Vital Signs Vital Sign Reading Time Taken Comments Blood Pressure 150/90 06/26/2006 9:00 AM CDT Pulse - - Temperature - - Respiratory Rate - - Oxygen Saturation - - Inhaled Oxygen Concentration - - Weight 88.5 kg (195 lb) 06/26/2006 9:00 AM CDT Height - - Body Mass Index - - documented in this encounter Plan of Treatment Upcoming Encounters Date Type Department Care Team ([facility] Contact Info) Description 11/09/2024 1:20 PM FOUNDING PARTNER Office Visit [facility] Primary Care [address] [place] [address] Mohinder Hadley MD [address] [place] [address] [address] [place] [address] 11/10/2024 11:00 AM FOUNDING PARTNER Office Visit [facility] Urology at the [facility] Medicine [address] [place] [phone] Chirag Damon MD [address] [facility] [address] [place], [place] [phone] 01/04/2025 12:00 PM CDT Office Visit [facility] Urology at the [facility] [address] [place] [address] Tonia Melton PA [address] [facility] [address] [place], [place] [phone] documented as of this encounter Visit Diagnoses Not on filedocumented in this encounter Care Teams Radio Installer Automobile Relationship Specialty Start Date End Date Mohinder Hadley MD [address] [place] [address] PCP - General 06/03/07 documented as of this encounter
--- OUTSIDE RECORDS SUMMARY | 2024-10-30 16:48 | XMS_ITS | Encounter Summary ---
Author Organization [facility] Address [address] [place] [address] Care Team Providers Care Flake Miller Helper Name Role Phone Mohinder Hadley MD Primary Care Provider [phone] Encounter Details Date Type Department Care Team (Late st Contact Info) Description 12/02/2006 Orders Only [facility] Internal Medicine [address] [address] Mohinder Hadley MD [address] [place] [address] Social History Tobacco Use Types Packs/Day Years Used Date Smoking Tobacco: Never Assessed Sex and Gender Information Value Date Recorded Sex Assigned at Not on file Legal Sex Male 5:02 AM RUG TOUCH UP PAINTER Gender Identity Not on file Sexual Orientation Not on file documented as of this encounter Progress Notes * Mohinder Hadley MD - 02/27/2008 8:46 PM CDT TIME:03:12 pm PATIENT`S HOME PHONE: PATIENT`S WORK PHONE: PATIENT`S INSURANCE: [facility] WHO TOOK THE CALL: Jenna Berger R GENERAL INFORMATION WHO CALLED: Pharmacy called. PHARMACY NUMBER: [phone] SECTION 1: REQUESTED ACTION mj 12/02/06 at 03:12 pm: MEDICATION REQUEST: MEDICATION REQUEST: Patient requests a refill. Cyclobenzaprine 10mg #60 last refill 08-30-06 Not onmed list Diovan 160mg #60 last refilled 07-04-06 07/12 med on list is Diovan HCT 160/12.5mg DOCTOR`S RESPONSE: adrianna 12/02/06 at 03:35 pm MEDICATIONS: DIOVAN HCT ORAL TABLET 160-12.5 MG, 1 Every Day, 90 Dispensed, status: NEW PRESCRIPTION, 07/31/2006. FLEXERIL ORAL TABLET 10 MG, 1 Every Day At Bedtime, 30 Dispensed, 1 Fills, status: CONTINUED, 12/02/2006. FINAL ACTION: heinlc 12/02/06 at 03:59 pm Called pharmacy at 12/02/06 at 04:00 pm. documented in this encounter Plan of Treatment Upcoming Encounters Date Type Department Care Team (Late st Contact Info) Description 11/09/2024 1:20 PM RUG TOUCH UP PAINTER Office Visit [facility] [place] [address] Mohinder Hadley MD [address] [place], [place] [phone] 11/10/2024 11:00 AM RUG TOUCH UP PAINTER Office Visit [facility] Urology at the [facility] Medicine [address] [facility] [place] [phone] Chirag Damon MD [address] [address] 01/04/2025 12:00 PM CDT Office Visit [facility] Urology at the [facility] Medicine [address] [facility] [address] [place] [phone] Tonia Melton PA [address] [address] documented as of this encounter Visit Diagnoses Not on filedocumented in this encounter Care Teams Flake Miller Helper Relationship Specialty Start Date End Date Mohinder Hadley MD [address] [place] [address] PCP - General 06/03/07 documented as of this encounter
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
--- OUTSIDE RECORDS SUMMARY | 2024-10-30 16:48 | XMS_ITS | Encounter Summary ---
Author Organization [facility] Address [address] [place] [address] Care Team Providers Care Sales Professional Bilingual Name Role Phone Mohinder Hadley MD Primary Care Provider [phone] Encounter Details Date Type Department Care Team ([facility] Contact Info) Description 05/27/2006 Outpatient Historical [facility] Internal Medicine [address] [address] Mohinder Hadley MD [address] [place] [address] Social History Tobacco Use Types Packs/Day Years Used Date Smoking Tobacco: Never Assessed Sex and Gender Information Value Date Recorded Sex Assigned at Not on file Legal Sex Male 5:02 AM DIRECTOR REHABILITATION PROGRAM Gender Identity Not on file Sexual Orientation Not on file documented as of this encounter Last Filed Vital Signs Vital Sign Reading Time Taken Comments Blood Pressure 162/100 05/27/2006 1:15 PM CDT Pulse - - Temperature - - Respiratory Rate - - Oxygen Saturation - - Inhaled Oxygen Concentration - - Weight 89.8 kg (198 lb) 05/27/2006 1:15 PM CDT Height - - Body Mass Index - - documented in this encounter Plan of Treatment Upcoming Encounters Date Type Department Care Team ([facility] Contact Info) Description 11/09/2024 1:20 PM DIRECTOR REHABILITATION PROGRAM Office Visit [facility] Primary Care [address] [place] [address] Mohinder Hadley MD [address] [place] [address] [address] [place] [address] 11/10/2024 11:00 AM DIRECTOR REHABILITATION PROGRAM Office Visit [facility] [address] [place] [phone] Chirag Damon MD [address] [facility] [address] [place], [place] [phone] 01/04/2025 12:00 PM CDT Office Visit [facility] Urology at the [facility] [address] [facility] [address] [place] [address] Tonia Melton PA [address] [facility] [address] [place], [place] [phone] documented as of this encounter Visit Diagnoses Not on filedocumented in this encounter Care Teams Sales Professional Bilingual Relationship Specialty Start Date End Date Mohinder Hadley MD [address] [place] [phone] PCP - General 06/03/07 documented as of this encounter
--- NOTE | 2024-10-30 16:59 | ED.NAVMDI ---
HPI - Nausea/Vomiting/Diarrhea General Chief complaint: Nausea/Vomiting/Diarrhea Stated complaint: Vomiting Time Seen by Provider: 10/30/24 16:55 Source: patient, family, RN notes reviewed and old records reviewed Mode of arrival: ambulatory (PUT IN WHEEL CHAIR ON ARRIVAL) Limitations: no limitations History of Present Illness HPI Narrative: 68 YEAR OLD MALE WHO PRESENTS TO [facility] WITH WITH COMPLAINTS OF NAUSEA AND VOMITING SINCE 199 AND HAS NOT BEEN ABLE TO KEEP ANY FLUIDS DOWN.PATIENT REPORTS NO DIARRHEA VOICES SOME BODY ACHES,Patient reports that he needs IV fluids and instructed patient that we do not give IV fluids in the express care. Testing for flu and COVID done with results negative. Patient received Zofran with no improvement in nausea and vomiting. Patient reports some soreness in abdomen from all the vomiting but denies any acute abdominal tenderness. Patient very anxious and plan for to take per private car and then episode of vomiting again occurred with patient stating he wanted to go by ambulance to the hospital. Patient is pale and extremely anxious stating he needs something for his anxiety.Call placed by registrar for ambulance transport was told none available at this time and 911 somehow activated then and [place] paramedics showed up.then one of the paramedics called dispatch and survival flight ambulance showed up a few minutes later for transport to hospital MD elicited complaint: nausea and vomiting Onset (ago): hour(s) (199) Description of vomiting: watery Associated nausea: Yes Severity: severe Treatment prior to arrival: none Related Data Home Medications ?Medication ?Instructions ?Recorded ?Confirmed ?Last Taken ?Type amlodipine 5 mg tablet 5 mg PO DAILY 06/27/22 10/30/24 Unknown History aspirin 81 mg tablet 81 mg PO DAILY 06/27/22 07/29/24 Unknown History atorvastatin 40 mg tablet 40 mg PO DAILY 06/27/22 07/29/24 Unknown History celecoxib 200 mg capsule 200 mg PO DAILY 06/27/22 07/29/24 Unknown History duloxetine 60 mg capsule,delayed 60 mg PO DAILY 06/27/22 07/29/24 Unknown History release esomeprazole magnesium 40 mg 40 mg PO DAILY 06/27/22 07/29/24 Unknown History capsule,delayed release ezetimibe 10 mg tablet 10 mg PO DAILY 06/27/22 07/29/24 Unknown History gabapentin 300 mg tablet 300 mg PO TID 06/27/22 07/29/24 Unknown History levothyroxine 88 mcg tablet 88 mcg PO DAILY 06/27/22 07/29/24 Unknown History losartan 50 mg-hydrochlorothiazide 1 tablet PO DAILY 06/27/22 07/29/24 Unknown History 12.5 mg tablet fluticasone propionate 50 intranasal 10/30/24 Unknown History mcg/actuation nasal spray,suspension Allergies Allergy/AdvReac Type Severity Reaction Status Date / Time No Known Allergies Allergy Verified 06/27/22 14:08 Review of Systems Review of Systems: CONSTITUTIONAL: Denies fever, chills, or sweats. EYES: Denies visual changes, redness, or discharge. ENT: Denies rhinorrhea, congestion, sore throat, or otalgia. CARDIOVASCULAR: Denies chest pain, palpitations, or edema. RESPIRATORY: Denies cough or dyspnea. GASTROINTESTINAL: Denies abdominal pain, reports some soreness to sides of abdomen from retching, positive for nausea, vomiting, no diarrhea. GENITOURINARY: Denies dysuria or hematuria. SKIN: Denies rash or itching. MUSCULOSKELETAL: Denies back pain, joint pain, or myalgia. NEUROLOGIC: Denies headache, numbness, reports feeling of weakness. PSYCHIATRIC: positive for anxiety or depression. All systems reviewed & are unremarkable except as noted in HPI and below PMFSH Past Medical History Medical History Spinal stenosis Anxiety GERD (gastroesophageal reflux disease) BPH (benign prostatic hyperplasia) Arthritis Elevated cholesterol Hypertension Hypothyroid Surgical History Surgical History History of cholecystectomy History of bladder suspension procedure October 14 2024 H/O prostatectomy Social History Social History Smoking status: Never smoker Alcohol intake: current Alcohol use details: rare Substance use type: does not use Gender identity (if verbalized by the patient): Male Comments At time of signature, agree with nursing past medical, surgical, social and family history. There is no relevant family history pertinent to the presenting complaint Exam Narrative: GENERAL: Ill-appearing, well-nourished, and in some acute distress. anxious and having episodes of hyperventilating with vomiting HEAD: Normocephalic, atraumatic. EYES: PERRLA and EOMI. ENT: Nares clear, no rhinorrhea or epistaxis. Mucous membranes moist. NECK: Supple.lymphadenopathy CHEST: Clear to auscultation. No respiratory distress.SAO2 100% on room air HEART: Regular rate and rhythm. No murmur heard. Normal peripheral pulses. ABDOMEN: Soft, nontender, nondistended, normal active bowel sounds.reports some soreness of sides of abdomen from vomiting no acute pain in abdomen EXTREMITIES: Normal range of motion. No edema. SKIN: Warm, dry, no rash. NEURO: No focal deficits. Alert and oriented x3. anxious Course Course Emergency Course: Patient is aware of diagnosis, understands and agrees to treatment plan.? Anticipatory guidance given.? Patient agrees to follow-up as directed and is aware of reasons to seek care at the emergency department. Portions of this record may have been created with voice recognition software Level of Care: Express Care Visit Vital Signs Vital signs: Vital Signs Temperature 36.6 C 10/30/24 17:08 Pulse Rate 108 H 10/30/24 17:08 Respiratory Rate 16 10/30/24 17:08 Blood Pressure 150/84 H 10/30/24 17:08 Pulse Oximetry 100 10/30/24 17:08 Oxygen Delivery Room Air 10/30/24 17:08 Temperature 36.6 C 10/30/24 17:08 Pulse Rate 108 H 10/30/24 17:08 Respiratory Rate 16 10/30/24 17:08 Blood Pressure 150/84 H 10/30/24 17:08 Pulse Oximetry 100 10/30/24 17:08 Oxygen Delivery Room Air 10/30/24 17:08 Reviewed Transfer Transfered to: [facility]) Transportation: ALS (per patient request) Transfer rationale: Severe nausea and vomiting since 0200 this morning unable to keep anything down feels weak is extremely anxious request ambulance transport. Accepting physician: Elizabeth Transfer comments: per ambulance to [facility] MDM - Nausea/Vomiting/Diarrhea MDM Narrative Medical decision making narrative: 1731 Call placed to [facility] ED with VS, PMH and present condition discusses with [place] ED nurse with Dr Johnson accepting patient for transfer. Patient was medicated with Zofran at 1700 while in clinic with no improvement in nausea and vomiting. Differential Diagnosis Differential diagnosis: Likely gastroenteritis, dehydration and other (NAUSEA AND VOMITING, GASTRITIS, VIRAL SYNDROME, acute anxiety) Medical Records Attestation: I reviewed the patient's medical records. Critical Care Time Critical Care Time Critical Care Time: No Discharge Plan Discharge Clinical Impression: Acute anxiety Nausea & vomiting Qualifiers: Vomiting type: unspecified Qualified Code(s): R11.2 - Nausea with vomiting, unspecified Patient Disposition: Acute Care Hospital Condition: Stable Instructions: Acute Nausea and Vomiting (ED) Patient Language: Iranian Prescriptions: No Action fluconazole 150 mg tablet 150 mg PO WEEKLY Qty: 2 0RF losartan-hydrochlorothiazide 50-12.5 mg tablet 1 tablet PO DAILY ezetimibe 10 mg tablet 10 mg PO DAILY amlodipine 5 mg Tablet 5 mg PO DAILY celecoxib 200 mg Capsule 200 mg PO DAILY atorvastatin 40 mg Tablet 40 mg PO DAILY levothyroxine [L-Thyroxine Sodium] 88 mcg Tablet 88 mcg PO DAILY esomeprazole magnesium 40 mg Capsule,Delayed Release(Dr/Ec) 40 mg PO DAILY aspirin 81 mg Tablet 81 mg PO DAILY duloxetine 60 mg Capsule,Delayed Release(Dr/Ec) 60 mg PO DAILY gabapentin 300 mg Tablet 300 mg PO TID fluticasone propionate 50 mcg/actuation spray,suspension INTRANASAL Follow-up/Referrals: Jomar,Mohinder Tesfaye MD [Primary Care Provider] - Time of Disposition: 18:02 Quality Nela Coma Scale Eyes: Open Verbal: Oriented and Alert Motor: Follows Commands [place] Coma Total Score: 15
[2024-10-30] MEDS: ONDANSETRON HCL ODT 4 MG TABLET PO (17:06)
[2024-10-30 17:08] VITALS: BP 150/84; PULSE 108; RESP 16; TEMP 36.6; O2SAT 100
== END 2024-10-30 18:11 | disposition short-term general hospital (02) ==
PROVIDERS: Emergency Provider Registered Nurse; PCP Internal Medicine
DX: F41.9 Anxiety disorder, unspecified (principal); R11.2 Nausea with vomiting, unspecified; Z79.82 Long term (current) use of aspirin; K21.9 Gastro-esophageal reflux disease without esophagitis; I10 Essential (primary) hypertension; E03.9 Hypothyroidism, unspecified
CPT/HCPCS: 99215; A9270; G0463